=== PATIENT | male | born 1965 | race Caucasian/White ===

== ENCOUNTER 2018-08-13 12:40 | Inpatient (IN) ==
[2018-08-13] MEDS ORDERED: NS 1000 ML 1,000 ML ONE ×3 (13:12→16:11)
[2018-08-13] MEDS ORDERED: ZOFRAN INJ 4 MG VIAL ONE (13:12)
[2018-08-13] MEDS ORDERED: ZOFRAN INJ 4 MG VIAL IVP ONE (13:21)
[2018-08-13] MEDS ORDERED: NS 1000 ML 1,000 ML IV ONE ×2 (13:21→14:41)
[2018-08-13 13:50] LABS: BASOPHILS # (AUTO) 0.1 X10^3/uL (0.0-0.1); BASOPHILS % (AUTO) 0.3 % (0.2-1.0); EOSINOPHILS % (AUTO) 0.1 % (0.9-2.9); HEMATOCRIT 46.3 % (42.0-54.0); HEMOGLOBIN 15.9 g/dL (13.5-18.0); LYMPHOCYTES # (AUTO) 0.8 X10^3/uL (1.3-2.9); LYMPHOCYTES % (AUTO) 5.3 % (21.0-51.0); MEAN CORPUSCULAR HEMOGLOBIN 31.6 pg (27.0-34.0); MEAN CORPUSCULAR HGB CONC 34.3 g/dL (33.0-35.0); MEAN CORPUSCULAR VOLUME 92.2 fL (80.0-100.0); MEAN PLATELET VOLUME 7.3 fL (7.4-11.0); MONOCYTES # (AUTO) 1.8 x10^3/uL (0.3-0.8); MONOCYTES % (AUTO) 12.1 % (0.0-13.0); NEUTROPHILS # (AUTO) 12.4 x10^3/uL (2.2-4.8); NEUTROPHILS % (AUTO) 82.2 % (42.0-75.0); PLATELET COUNT 401 X10^3/uL (150.0-450.0); RED BLOOD COUNT 5.02 X10^6/uL (4.7-6.0); RED CELL DISTRIBUTION WIDTH 15.5 % (11.6-16.5); WHITE BLOOD COUNT 15.1 X10^3/uL (3.6-10.0)
--- NOTE | 2018-08-13 13:50 | DR.GENAD ---
HPI Time Seen Time Seen by Provider: 08/13/18 13:18 PCP Primary Care Physician: DR SIMPSON HPI Comment HPI Comment: WORSE TODAY. ABDOMINAL CRAMPING WELL. NOT HOLDING DOWN FLUID OR MEDICATIONS. Complaint/Symptoms Chief Complaint Doctors Comments: NAUSEA, VOMITING TIMES ONE DAY. Chief Complaint:: PT STATES THAT YESTERDAY AFTERNOON HE STARTED THROWING UP AND HASN'T BEEN ABLE TO KEEP ANYTHING DOWN. Self Treatment fo Chief Complaint: TOOK ZOFRAN AT HOME WITH NO RELIEF Nurses notes reviewed Nurses Notes Review: Yes Source History Provided: Patient Mode of Arrival Mode of Arrival: Ambulatory Timing Onset of Chief Complaint: 08/13/18 Came on: Suddenly Duration Duration: Constant Duration: Days Severity Severity: Moderate Modifying Factors Worsens:: ORAL INTAKE Improves:: NONE. Associated Signs and Symptoms Associated Signs and Symptoms: WEAK. PMH PMH Past Medical History: Yes Past Medical History: Anxiety, Arthritis, Dyslipidemia, GERD, Hypertension and PUD Past Medical History Comment: DVT,CHRONIC BACK PAIN Past Surgical History: Yes Past Surgical History Comment: IVC FILTER Family History History of Family Medical Conditions: Yes Family Medical History: Diabetes Mellitus, Cancer, [place], Coronary Artery Disease and Hypertension Social History Does patient currently use any type of tobacco product: No Have you used tobacco products in the last 12 months: No Type of Tobacco Use: None Does any household member use tobacco: No Alcohol Use: Rarely Do you use any recreational Drugs:: No Lives With: Spouse Lives Where: Home infectious screening In the last 2 months have you had wt loss of >10#?: NO Have you had fever, night sweats or hemotysis?: No Have you traveled outside the country in the last 6 months?: No Isolation: Standard PE Vital Signs Vitals: Temperature 98.8 F Pulse Rate [Left Brachial] 74 Pulse Rate 78 Respiratory Rate 16 Blood Pressure [Left Arm] 109/55 Blood Pressure [Right Arm] 129/93 Blood Pressure 154/87 O2 Sat by Pulse Oximetry 95 General Limitations: No Limitations General Appearance: Alert and In No Apparent Distress Head Head Exam: Normal Inspection and Atraumatic Eyes Eye exam: PERRL; negative Scleral Icterus and Conjunctival Injection ENT ENT Exam: Normal Exam External Ear Exam: Normal External Inspection TM/Canal Exam: Bilateral: Normal Nose Exam: Normal Nose Exam Mouth Exam: Normal Inspection Throat Exam: Normal Inspection Neck Neck Exam: Normal Inspection Chest Chest Inspection: Symmetric Chest Wall Rise Respiratory Respiratory Exam: Bilateral: Rhonchi and Lower: Rhonchi Cardiovascular Cardiovascular Exam: Regular Rate and Normal Rhythm Abdominal Exam Abdominal Exam: Normal Bowel Sounds, Soft and Tenderness Abdominal Tenderness: Diffuse and Moderate Extremities Extremities Exam: Normal Inspection Back Back Exam: Normal Inspection Neurologic Neurological Exam: Alert and Oriented X3; negative Motor Sensory Deficit Skin Skin Exam: Dry MDM Differential Diagnosis Differential Diagnosis: DEHYDRATION, BOWEL OBSTRUCTION, DIVERTICULITIS, PUD. COURSE Treatment Treatment: SEE ORDERS. ROR Labs Reviewed Laboratory Results Reviewed?: Yes Result Diagrams: 08/18/18 05:00 08/18/18 05:00 Laboratory: 08/13/18 16:18 Urine,Clean Catch Urine Culture - Final WBC 9.0 X10^3/uL (3.6-10.0) 08/18/18 05:00 RBC 4.60 X10^6/uL (4.7-6.0) L 08/18/18 05:00 Hgb 14.6 g/dL (13.5-18.0) 08/18/18 05:00 Hct 42.9 % (42.0-54.0) 08/18/18 05:00 MCV 93.1 fL (80.0-100.0) 08/18/18 05:00 MCH 31.7 pg (27.0-34.0) 08/18/18 05:00 MCHC 34.1 g/dL (33.0-35.0) 08/18/18 05:00 RDW 15.1 % (11.6-16.5) 08/18/18 05:00 Plt Count 391 X10^3/uL (150.0-450.0) 08/18/18 05:00 MPV 7.1 fL (7.4-11.0) L 08/18/18 05:00 Neut % (Auto) 76.9 % (42.0-75.0) H 08/18/18 05:00 Lymph % (Auto) 8.4 % (21.0-51.0) L 08/18/18 05:00 [place] % (Auto) 12.0 % (0.0-13.0) 08/18/18 05:00 Eos % (Auto) 1.7 % (0.9-2.9) 08/18/18 05:00 Baso % (Auto) 1.0 % (0.2-1.0) 08/18/18 05:00 Neut # (Auto) 6.9 x10^3/uL (2.2-4.8) H 08/18/18 05:00 Lymph # (Auto) 0.8 X10^3/uL (1.3-2.9) L 08/18/18 05:00 [place] # (Auto) 1.1 x10^3/uL (0.3-0.8) H 08/18/18 05:00 Eos # (Auto) 0.2 x10^3/uL (0.0-0.2) 08/18/18 05:00 Baso # (Auto) 0.1 X10^3/uL (0.0-0.1) 08/18/18 05:00 Absolute Nucleated RBC 0.0 /100WBC 08/18/18 05:00 Sodium 130 mmol/L (136-145) L 08/18/18 05:00 Corrected Sodium TNP 08/18/18 05:00 Potassium 4.7 mmol/L (3.5-5.1) 08/18/18 05:00 Chloride 96 mmol/L (98-107) L 08/18/18 05:00 Carbon Dioxide 25.2 mmol/L (21-32) 08/18/18 05:00 BUN 9 mg/dL (7-18) 08/18/18 05:00 Creatinine 1.00 mg/dL (0.70-1.30) 08/18/18 05:00 Est GFR (MDRD) Af Amer > 60 (>60) 08/18/18 05:00 Est GFR (MDRD) Non-Af > 60 (>60) 08/18/18 05:00 Glucose 97 mg/dL (65-99) 08/18/18 05:00 Calcium 9.5 mg/dL (8.5-10.1) 08/18/18 05:00 Corrected Calcium TNP 08/18/18 05:00 Magnesium 2.5 mg/dL (1.7-2.9) 08/14/18 05:24 Total Bilirubin 0.30 mg/dL (0.2-1.0) 08/18/18 05:00 AST 38 Units/L (15-37) H 08/18/18 05:00 ALT 93 Units/L (12-78) H 08/18/18 05:00 Alkaline Phosphatase 132 Units/L (46-116) H 08/18/18 05:00 Total Protein 8.0 g/dL (6.4-8.2) 08/18/18 05:00 Albumin 3.6 g/dL (3.4-5.0) 08/18/18 05:00 Globulin 4.4 g/dL (2.5-4.5) 08/18/18 05:00 Albumin/Globulin Ratio 0.8 Ratio (1.1-2.1) L 08/18/18 05:00 Triglycerides 334 mg/dL (0-150) H 08/14/18 05:24 Cholesterol 287 mg/dL (0-200) H 08/14/18 05:24 LDL Cholesterol, Calc 189 mg/dL (0-100) H 08/14/18 05:24 HDL Cholesterol 31 mg/dL (40-60) L 08/14/18 05:24 Cholesterol/HDL Ratio 9.3 (0.0-5.0) H 08/14/18 05:24 Amylase 47 Units/L (25-115) 08/13/18 13:15 Lipase 525 Units/L (73-393) H 08/13/18 13:15 Specimen Type Clean catch urine 08/13/18 16:18 Urine Color Dark yellow (YELLOW) 08/13/18 16:18 Urine Appearance Slightly hazy (CLEAR) 08/13/18 16:18 Urine pH 5.0 (5.0 - 8.0) 08/13/18 16:18 Ur Specific [place] 1.020 (1.000-1.030) 08/13/18 16:18 Urine Protein 2+ (NEGATIVE) 08/13/18 16:18 Urine Glucose (UA) Negative (NEGATIVE) 08/13/18 16:18 Urine Ketones 1+ (NEGATIVE) 08/13/18 16:18 Urine Occult Blood 1+ (NEGATIVE) 08/13/18 16:18 Urine Nitrite Negative (NEGATIVE) 08/13/18 16:18 Urine Bilirubin 1+ (NEGATIVE) 08/13/18 16:18 Urine Urobilinogen 1+ (NORMAL) 08/13/18 16:18 Ur Leukocyte Esterase 2+ (NEGATIVE) 08/13/18 16:18 Urine RBC 5-10 /HPF (NONE SEEN) 08/13/18 16:18 Urine WBC 5-10 /HPF (NONE SEEN) 08/13/18 16:18 Ur Squamous Epith Cells Few /HPF (NEGATIVE) 08/13/18 16:18 Calcium Oxalate Crystal Moderate /HPF (NEGATIVE) 08/13/18 16:18 Urine Bacteria 1+ /HPF (NEGATIVE) 08/13/18 16:18 Hyaline Casts Few /LPF (NEGATIVE) 08/13/18 16:18 Ur Culture Indicated? Yes/culture set up 08/13/18 16:18 Instructions Instructions: Hyponatremia, [id number] Sodium (Na) Test Hypertension Dehydration, Adult Forms: Patient Portal
[2018-08-13 13:53] LABS: BLOOD UREA NITROGEN 51 mg/dL (7-18); CALCIUM 9.6 mg/dL (8.5-10.1); CARBON DIOXIDE 24.4 mmol/L (21-32); CHLORIDE 86 mmol/L (98-107); COR NA(FOR HYPERGLY) 126 mmol/L (136-145); CREATININE 4.81 mg/dL (0.70-1.30); eGFR NON BLACK RACES 14 (>60)
[2018-08-13 13:59] LABS: ALANINE AMINOTRANSFERASE 42 Units/L (12-78); ALBUMIN 4.3 g/dL (3.4-5.0); ALKALINE PHOSPHATASE 133 Units/L (46-116); AMYLASE 47 Units/L (25-115); ASPARTATE AMINO TRANSFERASE 17 Units/L (15-37); LIPASE 525 Units/L (73-393)
[2018-08-13 14:04] LABS: SODIUM 125 mmol/L (136-145)
--- NOTE | 2018-08-13 15:38 | CT ---
History: Vomiting since yesterday afternoon Study: CT abdomen and pelvis without contrast. Sagittal and coronal reformations were provided. Comparison: None Findings: There is moderate fluid distention of the stomach. The gallbladder is distended. The liver and spleen and pancreas and kidneys and adrenal glands are unremarkable. There is a filter in the IVC that projects adjacent to and superior to the renal veins. There is no small bowel distention or flu id level. The colon is unremarkable. The appendix is normal. There is no adenopathy or ascites. The p rostate is normal. Impression: Moderate distention of the stomach with fluid and air but no small bowel distention. Ther efore there may be some gastric outlet obstruction. 2. Malposition of the IVC filter Reported By:
[2018-08-13] MEDS ORDERED: PEPCID 20 MG IV PREMIX* 20 MG/50 ML BAG IV ONE ×2 (16:14→16:17)
[2018-08-13] MEDS ORDERED: ZOFRAN INJ 4 MG VIAL IVP PRN (16:30)
[2018-08-13 16:37] LABS: BILIRUBIN,URINE 1+ (NEGATIVE); BLOOD/HEMOGLOBIN,URINE 1+ (NEGATIVE); GLUCOSE, URINE NEGATIVE (NEGATIVE); KETONES,URINE 1+ (NEGATIVE); LEUKOCYTE ESTERASE ,URINE 2+ (NEGATIVE); NITRITES,URINE NEGATIVE (NEGATIVE); PROTEIN,URINE 2+ (NEGATIVE); UROBILINOGEN,URINE 1+ (NORMAL)
[2018-08-13 16:49] LABS: APPEARANCE,URINE SLIGHTLY HAZY (CLEAR); COLOR,URINE DARK YELLOW (YELLOW)
[2018-08-13 16:52] LABS: BACTERIA,URINE 1+ /HPF (NEGATIVE); CALCIUM OXALATE CRYSTALS,UR MODERATE /HPF (NEGATIVE); HYALINE CASTS, URINE FEW /LPF (NEGATIVE); SQUAMOUS EPITHELIAL CELL,UR FEW /HPF (NEGATIVE)
[2018-08-13] MEDS ORDERED: NS 1000 ML 1,000 ML IV SCH (17:00)
[2018-08-13] MEDS: NS 1000 ML 1,000 ML IV SCH ×2 (17:00→22:20)
[2018-08-13 17:23] VITALS: BMI 33.0
[2018-08-13] MEDS: NORCO 5/325 MG TAB PO PRN (19:07)
[2018-08-13] MEDS: MORPHINE SULFATE INJ 2 MG INJ IVP PRN (20:38)
[2018-08-13] MEDS ORDERED: PEPCID 20 MG IV PREMIX* 20 MG/50 ML BAG IV SCH (23:00)
[2018-08-14] MEDS: MORPHINE SULFATE INJ 2 MG INJ IVP PRN ×3 (01:05→09:44)
[2018-08-14] MEDS: NS 1000 ML 1,000 ML IV SCH ×4 (02:44→20:39)
[2018-08-14 06:02] LABS: ALANINE AMINOTRANSFERASE 31 Units/L (12-78); ALBUMIN 3.2 g/dL (3.4-5.0); ALKALINE PHOSPHATASE 101 Units/L (46-116); ASPARTATE AMINO TRANSFERASE 17 Units/L (15-37); BASOPHILS # (AUTO) 0.1 X10^3/uL (0.0-0.1); BASOPHILS % (AUTO) 0.6 % (0.2-1.0); BLOOD UREA NITROGEN 46 mg/dL (7-18); CALCIUM 8.1 mg/dL (8.5-10.1); CARBON DIOXIDE 26.3 mmol/L (21-32); CHLORIDE 96 mmol/L (98-107); CHOL/HDL RATIO 9.3 (0.0-5.0); CHOLESTEROL 287 mg/dL (0-200); COR CA(FOR HYPOALB) 8.7 mg/dL (8.5-10.1); EOSINOPHILS % (AUTO) 0.1 % (0.9-2.9); HDL CHOLESTEROL 31 mg/dL (40-60); HEMATOCRIT 39.8 % (42.0-54.0); HEMOGLOBIN 13.4 g/dL (13.5-18.0); LYMPHOCYTES # (AUTO) 0.9 X10^3/uL (1.3-2.9); LYMPHOCYTES % (AUTO) 7.8 % (21.0-51.0); MAGNESIUM 2.5 mg/dL (1.7-2.9); MEAN CORPUSCULAR HEMOGLOBIN 31.6 pg (27.0-34.0); MEAN CORPUSCULAR HGB CONC 33.6 g/dL (33.0-35.0); MEAN CORPUSCULAR VOLUME 93.9 fL (80.0-100.0); MEAN PLATELET VOLUME 7.1 fL (7.4-11.0); MONOCYTES # (AUTO) 1.8 x10^3/uL (0.3-0.8); NEUTROPHILS # (AUTO) 9.1 x10^3/uL (2.2-4.8); NEUTROPHILS % (AUTO) 76.5 % (42.0-75.0); PLATELET COUNT 249 X10^3/uL (150.0-450.0); RED BLOOD COUNT 4.24 X10^6/uL (4.7-6.0); RED CELL DISTRIBUTION WIDTH 15.7 % (11.6-16.5); SODIUM 129 mmol/L (136-145); TRIGLYCERIDES 334 mg/dL (0-150); WHITE BLOOD COUNT 11.9 X10^3/uL (3.6-10.0); eGFR NON BLACK RACES 26 (>60)
[2018-08-14] MEDS: NORCO 5/325 MG TAB PO PRN (06:44)
[2018-08-14] MEDS: ROCEPHIN VIAL 1 GRAM IVP SCH (09:44)
[2018-08-14] MEDS ORDERED: SUMATRIPTAN SUCCINATE PO PRN (09:53)
[2018-08-14] MEDS ORDERED: ALPRAZOLAM 0.5 MG PO PRN (09:53)
[2018-08-14] MEDS ORDERED: ACETAMINOPHEN CODEINE PO PRN (09:53)
[2018-08-14] MEDS ORDERED: PATIENT'S HOME MEDICATION (Lisinopril 20 MG) PO SCH (10:00)
[2018-08-14] MEDS ORDERED: PATIENT'S HOME MEDICATION (Oxycodone [Oxycodone] 30 MG) PO SCH (10:00)
[2018-08-14] MEDS ORDERED: CARISOPRODOL PO SCH (10:00)
[2018-08-14] MEDS ORDERED: LINZESS PO ONE (11:14)
[2018-08-14] MEDS ORDERED: REGLAN TAB 10 MG PO ONE (11:16)
[2018-08-14] MEDS ORDERED: PROTONIX INJ 40 MG VIAL ONE (11:16)
[2018-08-14] MEDS ORDERED: ZESTRIL TAB 20 MG ONE ×2 (11:17→20:01)
[2018-08-14] MEDS: LINZESS PO SCH (11:19)
[2018-08-14] MEDS: CIPRO IV 200 MG PREMIX* 200 MG/100 ML BAG IV SCH ×2 (11:20→20:20)
[2018-08-14] MEDS: REGLAN TAB 10 MG PO SCH ×4 (11:20→20:18)
[2018-08-14] MEDS: PROTONIX INJ 40 MG VIAL IVP SCH ×2 (11:20→20:18)
[2018-08-14] MEDS: NEBIVOLOL PO SCH ×2 (11:29→20:21)
[2018-08-14] MEDS: ROXICODONE TAB 15 MG PO PRN ×3 (11:45→20:18)
[2018-08-14] MEDS: SOMA TAB 350 MG PO PRN ×3 (11:46→20:18)
[2018-08-14] MEDS: TYLENOL #3 TAB (W/CODEINE) PO PRN ×2 (18:23→23:25)
[2018-08-14] MEDS: ZESTRIL TAB 20 MG PO SCH (20:18)
[2018-08-14] MEDS: PEPCID 20 MG IV PREMIX* 20 MG/50 ML BAG IV SCH (20:20)
[2018-08-14] MEDS: XARELTO PO SCH (20:39)
[2018-08-15] MEDS: SOMA TAB 350 MG PO PRN ×6 (00:15→22:12)
[2018-08-15] MEDS: ROXICODONE TAB 15 MG PO PRN ×7 (00:16→22:13)
[2018-08-15 05:38] LABS: BASOPHILS % (AUTO) 0.5 % (0.2-1.0); EOSINOPHILS # (AUTO) 0.1 x10^3/uL (0.0-0.2); EOSINOPHILS % (AUTO) 1.4 % (0.9-2.9); HEMATOCRIT 36.1 % (42.0-54.0); HEMOGLOBIN 12.3 g/dL (13.5-18.0); LYMPHOCYTES % (AUTO) 13.8 % (21.0-51.0); MEAN CORPUSCULAR HEMOGLOBIN 31.8 pg (27.0-34.0); MEAN CORPUSCULAR HGB CONC 34.1 g/dL (33.0-35.0); MEAN CORPUSCULAR VOLUME 93.4 fL (80.0-100.0); MONOCYTES # (AUTO) 1.1 x10^3/uL (0.3-0.8); MONOCYTES % (AUTO) 14.1 % (0.0-13.0); NEUTROPHILS # (AUTO) 5.3 x10^3/uL (2.2-4.8); NEUTROPHILS % (AUTO) 70.2 % (42.0-75.0); PLATELET COUNT 241 X10^3/uL (150.0-450.0); RED BLOOD COUNT 3.87 X10^6/uL (4.7-6.0); RED CELL DISTRIBUTION WIDTH 15.2 % (11.6-16.5); WHITE BLOOD COUNT 7.5 X10^3/uL (3.6-10.0)
[2018-08-15 05:52] LABS: ALANINE AMINOTRANSFERASE 58 Units/L (12-78); ALBUMIN 3.2 g/dL (3.4-5.0); ALKALINE PHOSPHATASE 105 Units/L (46-116); ASPARTATE AMINO TRANSFERASE 42 Units/L (15-37); BLOOD UREA NITROGEN 23 mg/dL (7-18); CALCIUM 8.6 mg/dL (8.5-10.1); CARBON DIOXIDE 24.2 mmol/L (21-32); CHLORIDE 100 mmol/L (98-107); COR CA(FOR HYPOALB) 9.2 mg/dL (8.5-10.1); CREATININE 1.14 mg/dL (0.70-1.30); SODIUM 131 mmol/L (136-145); TOTAL PROTEIN 6.9 g/dL (6.4-8.2); eGFR NON BLACK RACES > 60 (>60)
--- NOTE | 2018-08-15 06:39 | RAD ---
Examination: KUB History: Abdominal pain, vomiting Comparison reference abdomen CT, 08/13/2018 Findings: There is slight gaseous dilatation of scattered segments of small bowel and colon. The appe arance does not suggest bowel obstruction. No visceral enlargement or pathologic fluid collection or calcification noted. IVC filter is noted projected to the right of T12 or L1. Impression: No significant intestinal abnormality noted. Suspect malposition of IVC filter as suggest ed on recent CT study. Reported By:
[2018-08-15] MEDS ORDERED: ZESTRIL TAB 20 MG ONE ×2 (08:17→19:41)
[2018-08-15] MEDS: CIPRO IV 200 MG PREMIX* 200 MG/100 ML BAG IV SCH ×2 (08:22→20:11)
[2018-08-15] MEDS: PROTONIX INJ 40 MG VIAL IVP SCH ×2 (08:23→20:12)
[2018-08-15] MEDS: ZESTRIL TAB 20 MG PO SCH ×2 (08:23→20:12)
[2018-08-15] MEDS: REGLAN TAB 10 MG PO SCH ×4 (08:23→20:12)
[2018-08-15] MEDS: TYLENOL #3 TAB (W/CODEINE) PO PRN ×2 (08:23→17:14)
[2018-08-15] MEDS: LINZESS PO SCH (08:23)
[2018-08-15] MEDS: NS 1000 ML 1,000 ML IV SCH ×3 (08:24→20:11)
[2018-08-15] MEDS: ROCEPHIN VIAL 1 GRAM IVP SCH (08:24)
--- NOTE | 2018-08-15 12:26 | DR.H&P ---
H&P - History & Physical for Day of: H&P Date: 08/13/18 - Chief Complaint Chief Complaint: NAUSEA, VOMITING, ABDOMINAL PAIN - History of Present Illness History of Present Illness: IS A 53 YEAR OLD PATIENT OF OURS WHO PRESENTED TO THE EMERGENCY ROOM WITH COMPLAINTS OF SEVEVER NAUSEA AND VOMITING AND ABDOMINAL PAIN. HE REPORS THAT HE HAS BEEN UNABLE TO KEEP ANYTHING DOWN FOR THE PAST DAY. HE REPORTS TAKING ZOFRAN AT HOME WITH NO RELIEF. ON ARRIVAL, VITAS WERE 96.2-11-39-90FA-98/54. LABS WERE OBTAINED. ABNORMAL LAB VALUES INCLUDE THE FOLLOWING: WBC 15.1, SOIDUM 125, BUN 51, CREATININE 4.81, GLUCOSE 127, ALK PHOS 133, TOTAL PROTEIN 9.0, GLOBULIN 4.7, LIPASE 525. URINALYSIS REVEALED WBC 5-10, RBC 5-10, BACTERIA 1+, LEUKOCYTES 1+. AN ABDOMEN/PELVIS CT WAS OBTIANED AND REVEALED: Moderate distention of the stomach with fluid and air but no small bowel distention. Therefore there may be some gastric outlet obstruction. Malposition of the IVC filter. HE WAS ADMITTED TO THE HOSPITAL FOR FURTHER EVALUATION AND TREATMENT OF DEHYDRATION, HYPONATREMIA, ACUTE RENAL FAILURE, ABDOMINAL PAIN, AND A URINARY TRACT INFECTION. HE WAS STARTED ON NORMAL SALINE AT 125ML/HR, ROCEPHIN 1GM IV DAILY, MORPHINE 2MG IV Q4H PRN PAIN, AND ZOFRAN 4MG IV Q6H PRN NAUSEA. WE PLAN TO FOLLOW UP WITH AM LABS AND CONTINUE TO MONITOR PATIENT. - Past Medical History Past Medical History: Hypertension, Dyslipidemia, Anxiety, PUD, GERD, Arthritis Additional Medical History: Pulmonary Embolus, Deep Vein Thrombosis, Vision Deficit, Hearing Deficit, Cardiac Arrhythmia, Seasonal Allergies, Slow Digestion, Muscle Weakness, Fibromyalgia, Back Pain, Degenerative Disc Disease - Past Surgical History Surgical History: Other - Family History Family Medical History: Cancer - Social History Does patient currently use any type of tobacco product: No Have you used tobacco products in the last 12 months: No Type of Tobacco Use: None Does any household member use tobacco: No Alcohol Use: None Drug Use: None - Medications Home Medications: No Known Drug Allergies Allergy (Verified 05/08/17 17:27) CONTINUE taking the following medications acetaminophen-codeine 1 tab PO Q4-6H PRN 08/13/18 [History] ciprofloxacin HCl [Cipro] 1 tab PO BID 08/13/18 [History] furosemide [Lasix] 20 mg PO BID PRN 08/13/18 [History] linaclotide [Linzess] 145 mcg PO DAILY 08/13/18 [History] methylprednisolone 1 tab PO DIRECTED 08/13/18 [History] oxycodone 30 mg PO .5XDAILY 08/13/18 [History] rivaroxaban [Xarelto] 10 mg PO HS 08/14/18 [History] - Review of Systems Constitutional: See HPI, Weakness Eyes: No Symptoms Reported ENT: No Symptoms Reported Respiratory: No Symptoms Reported Cardiovascular: No Symptoms Reported Gastrointestinal: Nausea, Vomiting, Abdominal Pain Genitourinary: No Symptoms Reported Musculoskeletal: No Symptoms Reported Skin: No Symptoms Reported Neurological: Weakness - Physical Exam Vital Signs: Temperature 98.0 F Pulse Rate [Left Brachial] 74 Pulse Rate 70 Respiratory Rate 11 Blood Pressure [Left Arm] 109/55 Blood Pressure [Right Arm] 129/93 Blood Pressure 150/77 O2 Sat by Pulse Oximetry 93 Oriented: Normal Eyes: Normal Ear: Normal Nose: Normal Throat: Normal Respiratory: Diminished Throughout Cardiovascular: Normal. negative: S3, S4, Murmur : Normal Auscultation: Bowel Sounds: Increased Palpation: Normal Tenderness: Diffuse, Moderate. negative: Rebound, Guarding, Rigidity Skin: Normal Musculoskeletal: Normal Psychiatric: Normal Mood Description: Calm Affect: Normal Speech Pattern: Clear - Assessment/Plan (1) Dehydration Status: Acute Plan: NORMAL SALINE AT 125ML/HR (2) Acute renal failure (ARF) Qualifiers: Acute renal failure type: unspecified Qualified Code(s): N17.9 - Acute kidney failure, unspecified Status: Acute Plan: NORMAL SALINE AT 125ML/HR (3) Hyponatremia Status: Acute Plan: NORMAL SALINE AT 125ML/HR (4) Urinary tract infection Qualifiers: Urinary tract infection type: site unspecified Hematuria presence: with hematuria Qualified Code(s): N39.0 - Urinary tract infection, site not specified; R31.9 - Hematuria, unspecified Status: Acute Plan: ROCEPHIN 1GM IV DAILY, CONTINUE TO MONITOR (5) Generalized weakness Status: Acute (6) Abdominal pain Qualifiers: Abdominal location: generalized Qualified Code(s): R10.84 - Generalized abdominal pain Status: Acute Plan: MORPHINE 2MG IV Q4H PRN PAIN - Allergies Allergies/Adverse Reactions: Allergies Allergy/AdvReac Type Severity Reaction Status Date / Time No Known Drug Allergies Allergy Verified 05/08/17 17:27
[2018-08-15] MEDS: NORCO 5/325 MG TAB PO PRN (12:33)
[2018-08-15] MEDS: NEBIVOLOL PO SCH (20:12)
[2018-08-15] MEDS: XARELTO PO SCH (20:12)
[2018-08-15] MEDS: MORPHINE SULFATE INJ 2 MG INJ IVP PRN (20:21)
[2018-08-15] MEDS: PEPCID 20 MG IV PREMIX* 20 MG/50 ML BAG IV SCH (20:21)
[2018-08-16] MEDS: XANAX PO PRN (01:19)
[2018-08-16] MEDS: MORPHINE SULFATE INJ 2 MG INJ IVP PRN (01:20)
[2018-08-16] MEDS: ROXICODONE TAB 15 MG PO PRN ×5 (02:47→21:13)
[2018-08-16] MEDS: NS 1000 ML 1,000 ML IV SCH ×2 (02:48→09:54)
[2018-08-16] MEDS: TYLENOL #3 TAB (W/CODEINE) PO PRN (04:50)
[2018-08-16] MEDS: SOMA TAB 350 MG PO PRN ×4 (04:51→21:13)
[2018-08-16 05:34] LABS: BASOPHILS % (AUTO) 0.3 % (0.2-1.0); EOSINOPHILS # (AUTO) 0.1 x10^3/uL (0.0-0.2); HEMATOCRIT 38.8 % (42.0-54.0); HEMOGLOBIN 13.2 g/dL (13.5-18.0); LYMPHOCYTES # (AUTO) 0.7 X10^3/uL (1.3-2.9); LYMPHOCYTES % (AUTO) 8.1 % (21.0-51.0); MEAN CORPUSCULAR HEMOGLOBIN 31.8 pg (27.0-34.0); MEAN CORPUSCULAR HGB CONC 34.1 g/dL (33.0-35.0); MEAN CORPUSCULAR VOLUME 93.2 fL (80.0-100.0); MONOCYTES % (AUTO) 10.9 % (0.0-13.0); NEUTROPHILS # (AUTO) 7.2 x10^3/uL (2.2-4.8); NEUTROPHILS % (AUTO) 79.7 % (42.0-75.0); PLATELET COUNT 297 X10^3/uL (150.0-450.0); RED BLOOD COUNT 4.16 X10^6/uL (4.7-6.0); WHITE BLOOD COUNT 9.1 X10^3/uL (3.6-10.0)
[2018-08-16 05:45] LABS: ALANINE AMINOTRANSFERASE 65 Units/L (12-78); ALBUMIN 3.3 g/dL (3.4-5.0); ALKALINE PHOSPHATASE 114 Units/L (46-116); ASPARTATE AMINO TRANSFERASE 41 Units/L (15-37); BLOOD UREA NITROGEN 12 mg/dL (7-18); CALCIUM 8.8 mg/dL (8.5-10.1); CARBON DIOXIDE 24.5 mmol/L (21-32); CHLORIDE 96 mmol/L (98-107); COR CA(FOR HYPOALB) 9.4 mg/dL (8.5-10.1); CREATININE 0.92 mg/dL (0.70-1.30); SODIUM 129 mmol/L (136-145); TOTAL PROTEIN 7.4 g/dL (6.4-8.2); eGFR NON BLACK RACES > 60 (>60)
[2018-08-16] MEDS ORDERED: ZESTRIL TAB 20 MG ONE ×2 (08:13→20:59)
[2018-08-16] MEDS: CIPRO IV 200 MG PREMIX* 200 MG/100 ML BAG IV SCH (08:17)
[2018-08-16] MEDS: PROTONIX INJ 40 MG VIAL IVP SCH (08:17)
[2018-08-16] MEDS: LINZESS PO SCH (08:18)
[2018-08-16] MEDS: REGLAN TAB 10 MG PO SCH ×4 (08:18→21:13)
[2018-08-16] MEDS: ZESTRIL TAB 20 MG PO SCH ×2 (08:19→21:14)
[2018-08-16] MEDS: ROCEPHIN VIAL 1 GRAM IVP SCH (08:19)
[2018-08-16] MEDS: NORCO 5/325 MG TAB PO PRN (11:01)
[2018-08-16] MEDS ORDERED: PHARMACY CONSULT - DOSE _____ XX SCH (14:00)
[2018-08-16] MEDS ORDERED: SODIUM CHL HYPERTONIC ** 3% ** 500 ML IV NR (14:00)
[2018-08-16] MEDS: PROTONIX TAB 40 MG PO SCH (14:03)
[2018-08-16] MEDS: NORVASC TAB 5 MG PO SCH (14:04)
[2018-08-16] MEDS: PEPCID 20 MG IV PREMIX* 20 MG/50 ML BAG IV SCH (21:13)
[2018-08-16] MEDS: XARELTO PO SCH (21:14)
[2018-08-16] MEDS: NEBIVOLOL PO SCH (21:18)
[2018-08-17] MEDS: TYLENOL #3 TAB (W/CODEINE) PO PRN ×3 (01:36→18:36)
[2018-08-17] MEDS: ROXICODONE TAB 15 MG PO PRN ×5 (04:35→20:17)
[2018-08-17] MEDS: SOMA TAB 350 MG PO PRN ×5 (04:35→20:18)
[2018-08-17 05:18] LABS: BASOPHILS # (AUTO) 0.1 X10^3/uL (0.0-0.1); BASOPHILS % (AUTO) 0.8 % (0.2-1.0); EOSINOPHILS # (AUTO) 0.2 x10^3/uL (0.0-0.2); EOSINOPHILS % (AUTO) 1.9 % (0.9-2.9); HEMOGLOBIN 13.8 g/dL (13.5-18.0); LYMPHOCYTES # (AUTO) 1.1 X10^3/uL (1.3-2.9); LYMPHOCYTES % (AUTO) 10.9 % (21.0-51.0); MEAN CORPUSCULAR HEMOGLOBIN 31.2 pg (27.0-34.0); MEAN CORPUSCULAR HGB CONC 33.6 g/dL (33.0-35.0); MEAN CORPUSCULAR VOLUME 92.9 fL (80.0-100.0); MEAN PLATELET VOLUME 7.1 fL (7.4-11.0); MONOCYTES # (AUTO) 1.2 x10^3/uL (0.3-0.8); MONOCYTES % (AUTO) 12.4 % (0.0-13.0); NEUTROPHILS # (AUTO) 7.3 x10^3/uL (2.2-4.8); PLATELET COUNT 350 X10^3/uL (150.0-450.0); RED BLOOD COUNT 4.42 X10^6/uL (4.7-6.0); RED CELL DISTRIBUTION WIDTH 15.2 % (11.6-16.5); WHITE BLOOD COUNT 9.8 X10^3/uL (3.6-10.0)
[2018-08-17 05:32] LABS: ALANINE AMINOTRANSFERASE 82 Units/L (12-78); ALBUMIN 3.5 g/dL (3.4-5.0); ALKALINE PHOSPHATASE 126 Units/L (46-116); ASPARTATE AMINO TRANSFERASE 42 Units/L (15-37); BLOOD UREA NITROGEN 10 mg/dL (7-18); CALCIUM 9.3 mg/dL (8.5-10.1); CHLORIDE 97 mmol/L (98-107); CREATININE 1.07 mg/dL (0.70-1.30); SODIUM 130 mmol/L (136-145); TOTAL PROTEIN 7.8 g/dL (6.4-8.2); eGFR NON BLACK RACES > 60 (>60)
[2018-08-17] MEDS: NORCO 10/325 TAB PO PRN (06:17)
[2018-08-17] MEDS ORDERED: ZESTRIL TAB 20 MG ONE ×2 (07:59→20:05)
[2018-08-17] MEDS: PROTONIX TAB 40 MG PO SCH (08:09)
[2018-08-17] MEDS: ROCEPHIN VIAL 1 GRAM IVP SCH (08:09)
[2018-08-17] MEDS: REGLAN TAB 10 MG PO SCH ×4 (08:09→20:14)
[2018-08-17] MEDS: LINZESS PO SCH (08:09)
[2018-08-17] MEDS: NORVASC TAB 5 MG PO SCH (08:09)
[2018-08-17] MEDS: ZESTRIL TAB 20 MG PO SCH ×2 (08:09→20:15)
[2018-08-17] MEDS: IMITREX TAB PO PRN (08:09)
[2018-08-17] MEDS: NS 1000 ML 1,000 ML IV SCH (09:52)
[2018-08-17] MEDS: MIRALAX POWDER (1 DOSE 17 G) PO SCH (09:52)
--- NOTE | 2018-08-17 10:07 | RAD ---
Exam: Portable chest History: 53-year-old male with shortness of breath Comparison: Previous chest radiograph from 05/10/2017 Findings: Heart size is upper limits of normal. No significant vascular congestion however. Left basilar atelec tasis is present. Otherwise lungs are clear. No significant effusion on either side. Impression: Mild atelectasis at left base. Otherwise negative exam Reported By:
[2018-08-17] MEDS ORDERED: NORVASC TAB 10 MG PO SCH (14:00)
[2018-08-17] MEDS ORDERED: NORVASC TAB 5 MG ONE (14:18)
[2018-08-17] MEDS ORDERED: NORVASC TAB 5 MG PO ONE (14:20)
--- NOTE | 2018-08-17 18:15 | PCM.PROG ---
Progress Note - Progress Note for Day of Date of Exam: 08/17/18 - Subjective Subjective: MR MENDOZA IS 53 WM ADMITTED WITH SEVERE DEHYDRATION, ACUTE RENAL FAILURE, ABDOMINAL PAIN WITH SBO. PT HAS HAD GRADUAL IMPROVEMENT IN RENAL FUNCTION, BUN 10 CREAT 1.07 THIS AM, CONTINUES WITH HYPONATREMIA 130. PT WBC 9.8,HBG 13.8. PT CONTINUES TO CO NAUSEA WITH ABDOMINAL BLOATING, DENIES BM SINCE ADMISSION. PT STARTED ON MIRALAX, DC HYPERTONIC IV SOLUTION, REPEAT AM KUB, REPEAT AM LABS. HYPERTENSIVE, INCREASED NORVASC TO 10MG PO DAILY, WILL CONTINUE TO MONITOR - Past Medical Family Social History Past Med/Fam/Surg Hx: No changes since H&P Allergies: Allergies No Known Drug Allergies Allergy (Verified 05/08/17 17:27) - Review of Systems ROS: No change since H&P - Vital Signs and I&O's Vital Signs: Temperature 98.6 F Pulse Rate [Left Brachial] 74 Pulse Rate 64 Respiratory Rate 12 Blood Pressure [Left Arm] 109/55 Blood Pressure [Right Arm] 129/93 Blood Pressure 170/77 O2 Sat by Pulse Oximetry 98 Intake and Output: Intake & Output 08/15/18 08/16/18 08/17/18 08/18/18 11:59 11:59 11:59 11:59 Intake Total 6195 / 6195 5070 / 5070 4089 / 4089 1979 / 1979 Output Total 5200 / 5200 6800 / 6800 5050 / 5050 1050 / 1050 Balance 995 / 995 -1730 / -1730 -961 / -961 930 / 930 - Physical Exam Oriented: Normal Eyes: Normal Ear: Normal Nose: Normal Throat: Normal Respiratory: Diminished Cardiovascular: Normal. negative: S3, S4, Murmur : Normal Auscultation: Bowel Sounds: Increased Tenderness: Diffuse, Mild. negative: Rebound, Guarding, Rigidity Skin: Normal Musculoskeletal: Normal Psychiatric: Normal Mood Description: Calm Affect: Normal Speech Pattern: Clear, Appropriate - Laboratory and Diagnostics Result Diagrams: 08/17/18 04:45 08/17/18 04:45 Labs: 08/13/18 16:18 Urine,Clean Catch Urine Culture - Final Laboratory WBC 9.8 X10^3/uL (3.6-10.0) 08/17/18 04:45 RBC 4.42 X10^6/uL (4.7-6.0) L 08/17/18 04:45 Hgb 13.8 g/dL (13.5-18.0) 08/17/18 04:45 Hct 41.0 % (42.0-54.0) L 08/17/18 04:45 MCV 92.9 fL (80.0-100.0) 08/17/18 04:45 MCH 31.2 pg (27.0-34.0) 08/17/18 04:45 MCHC 33.6 g/dL (33.0-35.0) 08/17/18 04:45 RDW 15.2 % (11.6-16.5) 08/17/18 04:45 Plt Count 350 X10^3/uL (150.0-450.0) 08/17/18 04:45 MPV 7.1 fL (7.4-11.0) L 08/17/18 04:45 Neut % (Auto) 74.0 % (42.0-75.0) 08/17/18 04:45 Lymph % (Auto) 10.9 % (21.0-51.0) L 08/17/18 04:45 [place] % (Auto) 12.4 % (0.0-13.0) 08/17/18 04:45 Eos % (Auto) 1.9 % (0.9-2.9) 08/17/18 04:45 Baso % (Auto) 0.8 % (0.2-1.0) 08/17/18 04:45 Neut # (Auto) 7.3 x10^3/uL (2.2-4.8) H 08/17/18 04:45 Lymph # (Auto) 1.1 X10^3/uL (1.3-2.9) L 08/17/18 04:45 [place] # (Auto) 1.2 x10^3/uL (0.3-0.8) H 08/17/18 04:45 Eos # (Auto) 0.2 x10^3/uL (0.0-0.2) 08/17/18 04:45 Baso # (Auto) 0.1 X10^3/uL (0.0-0.1) 08/17/18 04:45 Absolute Nucleated RBC 0.0 /100WBC 08/17/18 04:45 Sodium 130 mmol/L (136-145) L 08/17/18 04:45 Corrected Sodium TNP 08/17/18 04:45 Potassium 4.5 mmol/L (3.5-5.1) 08/17/18 04:45 Chloride 97 mmol/L (98-107) L 08/17/18 04:45 Carbon Dioxide 25.0 mmol/L (21-32) 08/17/18 04:45 BUN 10 mg/dL (7-18) 08/17/18 04:45 Creatinine 1.07 mg/dL (0.70-1.30) 08/17/18 04:45 Est GFR (MDRD) Af Amer > 60 (>60) 08/17/18 04:45 Est GFR (MDRD) Non-Af > 60 (>60) 08/17/18 04:45 Glucose 93 mg/dL (65-99) 08/17/18 04:45 Calcium 9.3 mg/dL (8.5-10.1) 08/17/18 04:45 Corrected Calcium TNP 08/17/18 04:45 Magnesium 2.5 mg/dL (1.7-2.9) 08/14/18 05:24 Total Bilirubin 0.30 mg/dL (0.2-1.0) 08/17/18 04:45 AST 42 Units/L (15-37) H 08/17/18 04:45 ALT 82 Units/L (12-78) H 08/17/18 04:45 Alkaline Phosphatase 126 Units/L (46-116) H 08/17/18 04:45 Total Protein 7.8 g/dL (6.4-8.2) 08/17/18 04:45 Albumin 3.5 g/dL (3.4-5.0) 08/17/18 04:45 Globulin 4.3 g/dL (2.5-4.5) 08/17/18 04:45 Albumin/Globulin Ratio 0.8 Ratio (1.1-2.1) L 08/17/18 04:45 Triglycerides 334 mg/dL (0-150) H 08/14/18 05:24 Cholesterol 287 mg/dL (0-200) H 08/14/18 05:24 LDL Cholesterol, Calc 189 mg/dL (0-100) H 08/14/18 05:24 HDL Cholesterol 31 mg/dL (40-60) L 08/14/18 05:24 Cholesterol/HDL Ratio 9.3 (0.0-5.0) H 08/14/18 05:24 Amylase 47 Units/L (25-115) 08/13/18 13:15 Lipase 525 Units/L (73-393) H 08/13/18 13:15 Specimen Type Clean catch urine 08/13/18 16:18 Urine Color Dark yellow (YELLOW) 08/13/18 16:18 Urine Appearance Slightly hazy (CLEAR) 08/13/18 16:18 Urine pH 5.0 (5.0 - 8.0) 08/13/18 16:18 Ur Specific [place] 1.020 (1.000-1.030) 08/13/18 16:18 Urine Protein 2+ (NEGATIVE) 08/13/18 16:18 Urine Glucose (UA) Negative (NEGATIVE) 08/13/18 16:18 Urine Ketones 1+ (NEGATIVE) 08/13/18 16:18 Urine Occult Blood 1+ (NEGATIVE) 08/13/18 16:18 Urine Nitrite Negative (NEGATIVE) 08/13/18 16:18 Urine Bilirubin 1+ (NEGATIVE) 08/13/18 16:18 Urine Urobilinogen 1+ (NORMAL) 08/13/18 16:18 Ur Leukocyte Esterase 2+ (NEGATIVE) 08/13/18 16:18 Urine RBC 5-10 /HPF (NONE SEEN) 08/13/18 16:18 Urine WBC 5-10 /HPF (NONE SEEN) 08/13/18 16:18 Ur Squamous Epith Cells Few /HPF (NEGATIVE) 08/13/18 16:18 Calcium Oxalate Crystal Moderate /HPF (NEGATIVE) 08/13/18 16:18 Urine Bacteria 1+ /HPF (NEGATIVE) 08/13/18 16:18 Hyaline Casts Few /LPF (NEGATIVE) 08/13/18 16:18 Ur Culture Indicated? Yes/culture set up 08/13/18 16:18 - Plan (1) Hyponatremia Status: Acute Plan: NORMAL SALINE AT 30CC/HR (2) SBO (small bowel obstruction) Status: Acute Plan: KUB NEGATIVE, MIRALAX. HYDRATE, REPEAT AM KUB (3) GERD (gastroesophageal reflux disease) Status: Chronic Qualifiers: Esophagitis presence: esophagitis presence not specified Qualified Code(s): K21.9 - Gastro-esophageal reflux disease without esophagitis (4) Hypertension Status: Chronic Qualifiers: Hypertension type: essential hypertension (5) Acute renal failure (ARF) Status: Acute Qualifiers: Acute renal failure type: unspecified Qualified Code(s): N17.9 - Acute kidney failure, unspecified Plan: NORMAL SALINE AT 30ML/HR
[2018-08-17] MEDS: NEBIVOLOL PO SCH (20:13)
[2018-08-17] MEDS: PEPCID 20 MG IV PREMIX* 20 MG/50 ML BAG IV SCH (20:14)
[2018-08-17] MEDS: XARELTO PO SCH (20:15)
[2018-08-17] MEDS: XANAX PO PRN (20:18)
[2018-08-18] MEDS: NS 1000 ML 1,000 ML IV SCH (00:16)
[2018-08-18] MEDS: ROXICODONE TAB 15 MG PO PRN ×4 (00:59→12:58)
[2018-08-18] MEDS: SOMA TAB 350 MG PO PRN ×4 (00:59→12:58)
[2018-08-18] MEDS: NORCO 10/325 TAB PO PRN ×2 (03:53→10:59)
[2018-08-18 05:25] LABS: BASOPHILS # (AUTO) 0.1 X10^3/uL (0.0-0.1); EOSINOPHILS # (AUTO) 0.2 x10^3/uL (0.0-0.2); EOSINOPHILS % (AUTO) 1.7 % (0.9-2.9); HEMATOCRIT 42.9 % (42.0-54.0); HEMOGLOBIN 14.6 g/dL (13.5-18.0); LYMPHOCYTES # (AUTO) 0.8 X10^3/uL (1.3-2.9); LYMPHOCYTES % (AUTO) 8.4 % (21.0-51.0); MEAN CORPUSCULAR HEMOGLOBIN 31.7 pg (27.0-34.0); MEAN CORPUSCULAR HGB CONC 34.1 g/dL (33.0-35.0); MEAN CORPUSCULAR VOLUME 93.1 fL (80.0-100.0); MEAN PLATELET VOLUME 7.1 fL (7.4-11.0); MONOCYTES # (AUTO) 1.1 x10^3/uL (0.3-0.8); NEUTROPHILS # (AUTO) 6.9 x10^3/uL (2.2-4.8); NEUTROPHILS % (AUTO) 76.9 % (42.0-75.0); PLATELET COUNT 391 X10^3/uL (150.0-450.0); RED CELL DISTRIBUTION WIDTH 15.1 % (11.6-16.5)
[2018-08-18 05:44] LABS: ALANINE AMINOTRANSFERASE 93 Units/L (12-78); ALBUMIN 3.6 g/dL (3.4-5.0); ALKALINE PHOSPHATASE 132 Units/L (46-116); ASPARTATE AMINO TRANSFERASE 38 Units/L (15-37); BLOOD UREA NITROGEN 9 mg/dL (7-18); CALCIUM 9.5 mg/dL (8.5-10.1); CARBON DIOXIDE 25.2 mmol/L (21-32); CHLORIDE 96 mmol/L (98-107); SODIUM 130 mmol/L (136-145); eGFR NON BLACK RACES > 60 (>60)
[2018-08-18] MEDS: IMITREX TAB PO PRN (05:56)
--- NOTE | 2018-08-18 07:04 | RAD ---
HISTORY: Abdominal pain Study: KUB Comparison: 08/15/2018 Findings: The abdominal gas pattern is nonspecific and nonobstructive. No abnormal masses or abnormal calcifica tions are identified. There is a CAVAL FILTER PRESENT. The regional skeleton is intact. IMPRESSION: Unremarkable KUB Reported By:
[2018-08-18] MEDS ORDERED: ZESTRIL TAB 20 MG ONE (07:47)
[2018-08-18] MEDS: MIRALAX POWDER (1 DOSE 17 G) PO SCH (08:00)
[2018-08-18] MEDS: PROTONIX TAB 40 MG PO SCH (08:00)
[2018-08-18] MEDS: LINZESS PO SCH (08:00)
[2018-08-18] MEDS: ROCEPHIN VIAL 1 GRAM IVP SCH (08:01)
[2018-08-18] MEDS: ZESTRIL TAB 20 MG PO SCH (08:01)
[2018-08-18] MEDS: TYLENOL #3 TAB (W/CODEINE) PO PRN (08:01)
[2018-08-18] MEDS: REGLAN TAB 10 MG PO SCH ×2 (08:01→12:58)
[2018-08-18 08:22] VITALS: BP 154/87
[2018-08-18] MEDS ORDERED: NORVASC TAB 10 MG PO SCH (09:00)
--- NOTE | 2018-09-23 21:31 | PCM.PROG ---
Progress Note - Progress Note for Day of Date of Exam: 08/14/18 - Subjective Subjective: IS A 53 YEAR OLD PATIENT OF OURS WHO WAS ADMITTED FOR DEHYDRATION, ACUTE RENAL FAILURE, HYPONATREMIA, A URINARY TRACT INFECTION, AND ABDOMINAL PAIN. ON MORNING ROUNDS, HE IS ALERT AND ORIENTED, LYING IN BED ON MORNING ROUNDS. HE CONTINUES WITH COMPLAINTS OF NAUSEA, VOMITING, ABDOMINAL PAIN, AND WEAKNESS. HE REPORTS THAT SYMPTOMS HAVE SLIGHTLY IMPROVED SINCE YESTERDAY. HE HAS BEEN AFEBRILE THROUGHOUT THE NIGHT. ON EXAMINATION, HEART IS REGULAR IN RATE AND RHYTHM. BILATERAL LUNGS ARE NOTED WITH DIMINISHED LUNG SOUNDS THROUGHOUT. ABDOMEN IS ROUND, SOFT, AND NOTED WITH DIFFUSE TENDERNESS ON PALPATION. HE DESCRIBES PAIN MILD THIS MORNING. HIS VITALS THIS MORNING ARE 98.5-105-22-93%RA-146/75. LABS WERE OBTAINED. WBC 11.9, RBC 4.24, HGB 13.4, HCT 39.8, SODIUM 129, CHLORIDE 96, BUN 46, CREATININE 2.70, CALCIUM 8.1, ALBUMIN 3.2. SEE EMR FOR OTHER LAB VALUES. WE DISCUSSED FINDINGS OF ABDOMEN/PELVIS CT REGARDING MALPOSITION OF THE IVC FILTER. HE REPORTS THAT PLACED HIS IVC FILTER A FEW YEARS AGO. WE CONTACTED , GENERAL SURGEON AND DISCUSSED FINDINGS WITH HIM. HE STATES THAT SURGICAL INTERVENTION IS NOT WARRANTED AT THIS TIME, HOWEVER, TO MAKE SURE PATIENT IS ON ANTICOAGULANTS AND TO HAVE HIM FOLLOW UP WITH VASCULAR SURGERY AFTER DISCHARGE. WE WILL REFER HIM TO [facility] AFTER DISCHARGE. HE IS CURRENTLY RECEIVING NORMAL SALINE FOR HYDRATION, IV ANTIBIOTICS, PEPCID IV, PROTONIX IV, MORPHINE FOR PAIN, AND ZOFRAN FOR NAUSEA. WE WILL INCLUDE HIS HOME MEDICATIONS TODAY, INCLUDING HIS XARELTO. WE WILL HOLD HIS DIURETICS THAT HE WAS TAKING AT HOME. OTHERWISE, WE WILL FOLLOW UP WITH AM LABS AND KUB AND CONTINUE TO MONITOR PATIENT. - Past Medical Family Social History Past Med/Fam/Surg Hx: No changes since H&P Allergies: Allergies No Known Drug Allergies Allergy (Verified 05/08/17 17:27) - Review of Systems ROS: No change since H&P - Vital Signs and I&O's Vital Signs: Temperature 98.8 F Pulse Rate [Left Brachial] 74 Pulse Rate 78 Respiratory Rate 16 Blood Pressure [Left Arm] 109/55 Blood Pressure [Right Arm] 129/93 Blood Pressure 154/87 O2 Sat by Pulse Oximetry 95 - Physical Exam Oriented: Normal Eyes: Normal Ear: Normal Nose: Normal Throat: Normal Respiratory: Diminished Cardiovascular: Tachycardia. negative: S3, S4, Murmur : Normal Auscultation: Bowel Sounds: Increased Palpation: Normal Tenderness: Diffuse, Mild. negative: Rebound, Guarding, Rigidity Skin: Normal Musculoskeletal: Normal Psychiatric: Normal Mood Description: Calm Affect: Normal Speech Pattern: Clear, Appropriate - Laboratory and Diagnostics Result Diagrams: 08/18/18 05:00 08/18/18 05:00 Labs: 08/13/18 16:18 Urine,Clean Catch Urine Culture - Final Laboratory WBC 9.0 X10^3/uL (3.6-10.0) 08/18/18 05:00 RBC 4.60 X10^6/uL (4.7-6.0) L 08/18/18 05:00 Hgb 14.6 g/dL (13.5-18.0) 08/18/18 05:00 Hct 42.9 % (42.0-54.0) 08/18/18 05:00 MCV 93.1 fL (80.0-100.0) 08/18/18 05:00 MCH 31.7 pg (27.0-34.0) 08/18/18 05:00 MCHC 34.1 g/dL (33.0-35.0) 08/18/18 05:00 RDW 15.1 % (11.6-16.5) 08/18/18 05:00 Plt Count 391 X10^3/uL (150.0-450.0) 08/18/18 05:00 MPV 7.1 fL (7.4-11.0) L 08/18/18 05:00 Neut % (Auto) 76.9 % (42.0-75.0) H 08/18/18 05:00 Lymph % (Auto) 8.4 % (21.0-51.0) L 08/18/18 05:00 [place] % (Auto) 12.0 % (0.0-13.0) 08/18/18 05:00 Eos % (Auto) 1.7 % (0.9-2.9) 08/18/18 05:00 Baso % (Auto) 1.0 % (0.2-1.0) 08/18/18 05:00 Neut # (Auto) 6.9 x10^3/uL (2.2-4.8) H 08/18/18 05:00 Lymph # (Auto) 0.8 X10^3/uL (1.3-2.9) L 08/18/18 05:00 [place] # (Auto) 1.1 x10^3/uL (0.3-0.8) H 08/18/18 05:00 Eos # (Auto) 0.2 x10^3/uL (0.0-0.2) 08/18/18 05:00 Baso # (Auto) 0.1 X10^3/uL (0.0-0.1) 08/18/18 05:00 Absolute Nucleated RBC 0.0 /100WBC 08/18/18 05:00 Sodium 130 mmol/L (136-145) L 08/18/18 05:00 Corrected Sodium TNP 08/18/18 05:00 Potassium 4.7 mmol/L (3.5-5.1) 08/18/18 05:00 Chloride 96 mmol/L (98-107) L 08/18/18 05:00 Carbon Dioxide 25.2 mmol/L (21-32) 08/18/18 05:00 BUN 9 mg/dL (7-18) 08/18/18 05:00 Creatinine 1.00 mg/dL (0.70-1.30) 08/18/18 05:00 Est GFR (MDRD) Af Amer > 60 (>60) 08/18/18 05:00 Est GFR (MDRD) Non-Af > 60 (>60) 08/18/18 05:00 Glucose 97 mg/dL (65-99) 08/18/18 05:00 Calcium 9.5 mg/dL (8.5-10.1) 08/18/18 05:00 Corrected Calcium TNP 08/18/18 05:00 Magnesium 2.5 mg/dL (1.7-2.9) 08/14/18 05:24 Total Bilirubin 0.30 mg/dL (0.2-1.0) 08/18/18 05:00 AST 38 Units/L (15-37) H 08/18/18 05:00 ALT 93 Units/L (12-78) H 08/18/18 05:00 Alkaline Phosphatase 132 Units/L (46-116) H 08/18/18 05:00 Total Protein 8.0 g/dL (6.4-8.2) 08/18/18 05:00 Albumin 3.6 g/dL (3.4-5.0) 08/18/18 05:00 Globulin 4.4 g/dL (2.5-4.5) 08/18/18 05:00 Albumin/Globulin Ratio 0.8 Ratio (1.1-2.1) L 08/18/18 05:00 Triglycerides 334 mg/dL (0-150) H 08/14/18 05:24 Cholesterol 287 mg/dL (0-200) H 08/14/18 05:24 LDL Cholesterol, Calc 189 mg/dL (0-100) H 08/14/18 05:24 HDL Cholesterol 31 mg/dL (40-60) L 08/14/18 05:24 Cholesterol/HDL Ratio 9.3 (0.0-5.0) H 08/14/18 05:24 Amylase 47 Units/L (25-115) 08/13/18 13:15 Lipase 525 Units/L (73-393) H 08/13/18 13:15 Specimen Type Clean catch urine 08/13/18 16:18 Urine Color Dark yellow (YELLOW) 08/13/18 16:18 Urine Appearance Slightly hazy (CLEAR) 08/13/18 16:18 Urine pH 5.0 (5.0 - 8.0) 08/13/18 16:18 Ur Specific [place] 1.020 (1.000-1.030) 08/13/18 16:18 Urine Protein 2+ (NEGATIVE) 08/13/18 16:18 Urine Glucose (UA) Negative (NEGATIVE) 08/13/18 16:18 Urine Ketones 1+ (NEGATIVE) 08/13/18 16:18 Urine Occult Blood 1+ (NEGATIVE) 08/13/18 16:18 Urine Nitrite Negative (NEGATIVE) 08/13/18 16:18 Urine Bilirubin 1+ (NEGATIVE) 08/13/18 16:18 Urine Urobilinogen 1+ (NORMAL) 08/13/18 16:18 Ur Leukocyte Esterase 2+ (NEGATIVE) 08/13/18 16:18 Urine RBC 5-10 /HPF (NONE SEEN) 08/13/18 16:18 Urine WBC 5-10 /HPF (NONE SEEN) 08/13/18 16:18 Ur Squamous Epith Cells Few /HPF (NEGATIVE) 08/13/18 16:18 Calcium Oxalate Crystal Moderate /HPF (NEGATIVE) 08/13/18 16:18 Urine Bacteria 1+ /HPF (NEGATIVE) 08/13/18 16:18 Hyaline Casts Few /LPF (NEGATIVE) 08/13/18 16:18 Ur Culture Indicated? Yes/culture set up 08/13/18 16:18 - Plan (1) Dehydration Status: Acute Plan: NORMAL SALINE AT 125ML/HR (2) Acute renal failure (ARF) Status: Acute Qualifiers: Acute renal failure type: unspecified Qualified Code(s): N17.9 - Acute kidney failure, unspecified Plan: NORMAL SALINE AT 30ML/HR (3) Hyponatremia Status: Acute Plan: NORMAL SALINE AT 30CC/HR (4) Urinary tract infection Status: Acute Qualifiers: Urinary tract infection type: site unspecified Hematuria presence: with hematuria Qualified Code(s): N39.0 - Urinary tract infection, site not specified; R31.9 - Hematuria, unspecified Plan: ROCEPHIN 1GM IV DAILY, CONTINUE TO MONITOR (5) Generalized weakness Status: Acute (6) Abdominal pain Status: Acute Qualifiers: Abdominal location: generalized Qualified Code(s): R10.84 - Generalized abdominal pain Plan: MORPHINE 2MG IV Q4H PRN PAIN (7) Nausea and vomiting Status: Acute Qualifiers: Vomiting type: unspecified Vomiting Intractability: unspecified Qualified Code(s): R11.2 - Nausea with vomiting, unspecified Plan: ZOFRAN 4MG IV PRN NAUSEA, CONTINUE TO MONITOR
--- NOTE | 2018-09-27 17:31 | DR.CARTERD ---
- Discharge Summary for: Discharge Summary for Date of:: 08/18/18 - Admission Date Date of Admission: 08/13/18 - Admission Diagnoses Admission Diagnosis: (1) Hyponatremia (2) Acute renal failure (ARF) (3) Abdominal pain (4) Dehydration (5) Generalized weakness (6) Urinary tract infection - Discharge Date Discharge Date: 08/18/18 - Discharge Diagnoses Discharge Diagnosis: (1) Hyponatremia (2) Acute renal failure (ARF) (3) Abdominal pain (4) Dehydration (5) Generalized weakness (6) Urinary tract infection - Hospital Course Hospital Course: DAY ONE, IS A 53 YEAR OLD PATIENT OF OURS WHO PRESENTED TO THE EMERGENCY ROOM WITH COMPLAINTS OF SEVERE NAUSEA, VOMITING, AND ABDOMINAL PAIN. HE REPORTED THAT HE HAD BEEN UNABLE TO KEEP ANYTHING DOWN SINCE ONE DAY PRIOR. HE REPORTED TAKING ZOFRAN AT HOME WITH NO RELIEF. ON ARRIVAL, VITALS WERE 96.5-03-15-90FA-98/54. LABS WERE OBTAINED. ABNORMAL LAB VALUES INCLUDED THE FOLLOWING: WBC 15.1, SODIUM 125, BUN 51, CREATININE 4.81, GLUCOSE 127, ALK PHOS 133, TOTAL PROTEIN 9.0, GLOBULIN 4.7, LIPASE 525. URINALYSIS REVEALED WBC 5-10, RBC 5-10, BACTERIA 1+, LEUKOCYTES 1+. AN ABDOMEN/PELVIS CT WAS OBTAINED AND REVEALED: Moderate distention of the stomach with fluid and air but no small bowel distention. Therefore there may be some gastric outlet obstruction. Malposition of the IVC filter. HE WAS ADMITTED TO THE HOSPITAL FOR FURTHER EVALUATION AND TREATMENT OF DEHYDRATION, HYPONATREMIA, ACUTE RENAL FAILURE, ABDOMINAL PAIN, AND A URINARY TRACT INFECTION. HE WAS STARTED ON NORMAL SALINE AT 125ML/HR, ROCEPHIN 1GM IV DAILY, MORPHINE 2MG IV Q4H PRN PAIN, AND ZOFRAN 4MG IV Q6H PRN NAUSEA. WE CONTINUED TO MONITOR PATIENT. DAY TWO, HE CONTINUED WITH COMPLAINTS OF NAUSEA, VOMITING, ABDOMINAL PAIN, AND WEAKNESS. HE REPORTED THAT SYMPTOMS HAD SLIGHTLY IMPROVED SINCE ADMISSION. HE HAD BEEN AFEBRILE THROUGHOUT THE NIGHT. ON EXAMINATION, HEART WAS REGULAR IN RATE AND RHYTHM. BILATERAL LUNGS WERE NOTED WITH DIMINISHED LUNG SOUNDS THROUGHOUT. ABDOMEN WAS ROUND, SOFT, AND NOTED WITH DIFFUSE TENDERNESS ON PALPATION. HE DESCRIBED PAIN MILD. HIS VITALS WERE 98.5-105-22-93%RA-146/75. LABS WERE OBTAINED. WBC 11.9, RBC 4.24, HGB 13.4, HCT 39.8, SODIUM 129, CHLORIDE 96, BUN 46, CREATININE 2.70, CALCIUM 8.1, ALBUMIN 3.2. SEE EMR FOR OTHER LAB CHANTAL UES. WE DISCUSSED FINDINGS OF ABDOMEN/PELVIS CT REGARDING MALPOSITION OF THE IVC FILTER. HE REPORTED THAT DR. NICOLE PLACED HIS IVC FILTER A FEW YEARS PRIOR. WE CONTACTED , GENERAL SURGEON AND DISCUSSED FINDINGS WITH HIM. HE STATED THAT SURGICAL INTERVENTION WAS NOT WARRANTED AT THIS TIME, HOWEVER, TO MAKE SURE PATIENT WAS ON ANTICOAGULANTS AND TO HAVE HIM FOLLOW UP WITH VASCULAR SURGERY AFTER DISCHARGE. WE PLANNED TO REFER HIM TO [facility] AFTER DISCHARGE. HE CONTINUED ON NORMAL SALINE FOR HYDRATION, IV ANTIBIOTICS, PEPCID IV, PROTONIX IV, MORPHINE FOR PAIN, AND ZOFRAN FOR NAUSEA. WE RESUMED HIS HOME MEDICATIONS, INCLUDING HIS XARELTO. WE HELD HIS DIURETICS THAT HE WAS TAKING AT HOME. DAY THREE, DR. GILL WAS COVERING AND REPORTED: SODIUM WAS IMPROVING AND WAS UP TO 131 FROM 125. HE REVIEWED XRAYS AND HE SEEMED TO HAVE A LITTLE BIT MORE STOOL BURDEN THAN HE SHOULD WHILE TAKING LINZESS. HE INCREASED DOSE OF LINZESS TO 290MCG. DAY FOUR, DR. GILL WAS COVERING AND REPORTED: HE WAS ASYMPTOMATIC; HOWEVER, HIS SODIUM HAD DROPPED TWO POINTS DESPITE NORMAL SALINE. IN REVIEWING HIS MEDICINES HE DIDN'T SEE ANY MEDICINES THAT WERE COMMONLY KNOWN TO CAUSE HYPONATREMIA. DR. GILL ENCOURAGED HIM TO DECREASE FREE WATER INTAKE AND STARTED HIM ON 3% SALINE. HIS BLOOD PRESSURE WAS ELEVATED IN THE 180S. HE STARTED NORVASC 5MG AND CONTINUED TO HOLD LASIX AND CHLORTHALIDONE. CIPRO WAS DISCONTINUED AND PATIENT WAS CONTINUED ON CEFTRIAXONE FOR SINUSITIS. DAY FIVE, DR. CEDENO WAS COVERING AND REPORTED: PATIENT CONTINUED WITH COMPLAINTS OF NAUSEA WITH ABDOMINAL BLOATING. HE DENIED BOWEL MOVEMENT SINCE ADMISSION. PATIENT STARTED ON MIRALAX. DR. CEDENO DISCONTINUED THE HYPERTONIC IV SOLUTION. PATIENT CONTINUED TO BE HYPERTENSIVE SO HE INCREASED NORVASC TO 10MG PO DAILY. DAY SIX, PATIENT REPORTED HE WAS FEELING BETTER. SODIUM WAS 130 IMPROVED FROM 125. PATIENT HAD SUCCESSFUL BOWEL MOVEMENT. NAUSEA AND VOMITING WERE RESOLVED AND PATIENT REPORTED ONLY MILD ABDOMINAL PAIN. ORAL INTAKE WAS FAIR. VITAL SIGNS STABLE. BP 154/87. LABS IMPROVED. WE PLANNED FOR DISCHARGE. INSTRUCTIONS FOR MEDICATIONS AND FOLLOW UP WERE DISCUSSED WITH PATIENT AND FAMILY, BOTH VOICED UNDERSTANDING. PATIENT DISCHARGED HOME IN STABLE CONDITION WITH FAMILY. - Discharge Medications Discharge Medications: Home Medication List Linzess 145 mcg PO DAILY 08/13/18 [History] acetaminophen-codeine 1 tab PO Q4-6H PRN 08/13/18 [History] oxycodone 30 mg PO .5XDAILY 08/13/18 [History] Xarelto 10 mg PO HS 08/14/18 [History] amlodipine 10 mg PO DAILY #30 tab 08/18/18 [Rx] ciprofloxacin HCl [Cipro] 1 tab PO BID #10 tab 08/18/18 [Rx] triamterene-hydrochlorothiazid [Dyazide] 1 cap PO QDAY #30 cap 08/18/18 [Rx] Prescriptions: amlodipine Devan Viveros ciprofloxacin HCl [Cipro] Devan Viveros triamterene-hydrochlorothiazid [Dyazide] Devan Viveros Ambulatory Orders Alprazolam 0.5 mg PO BID PRN 10/20/14 Carisoprodol 1 tab PO .5XDAILY 10/20/14 Lisinopril 20 mg PO BID 01/26/16 metoclopramide HCl 1 tab PO QID 01/26/16 sumatriptan succinate 1 tab PO PRN PRN 01/26/16 meloxicam 15 mg PO DAILY 05/08/17 nebivolol [Bystolic] 0.5 tab PO HS 05/08/17 omeprazole 1 cap PO BID 05/08/17 - Discharge Disposition Discharge Disposition: PATIENT IS TO FOLLOW UP WITH COLEEN JOHNSON WHEN APPOINTMENT IS AVAILABLE AND IN OUR OFFICE IN ONE WEEK.
== END 2018-08-18 13:40 | disposition home or self-care (01) | DRG 683 ==
LOC: ER 12:43 → ICU 16:14
PROVIDERS: ADMIT Internal Medicine; ATTEND Internal Medicine
DX: E78.2 Mixed hyperlipidemia; E87.1 Hypo-osmolality and hyponatremia; N17.8 Other acute kidney failure; R26.89 Other abnormalities of gait and mobility; N39.0 Urinary tract infection, site not specified; K31.1 Adult hypertrophic pyloric stenosis; R10.84 Generalized abdominal pain; R53.1 Weakness; K21.9 Gastro-esophageal reflux disease without esophagitis; E86.0 Dehydration; R11.2 Nausea with vomiting, unspecified
CPT/HCPCS: 36415; 71010; 71045; 74000; 74018; 74176; 80053; 80061; 81001; 82150; 83690; 83735; 85025; 87086; 96365; 96367; 96374; 96375; 97110; 97116; 97161; 99284; 99285; A4222; C9113; S0028; J0696; J0744; J2270; J2405; J7030; J7131

== ENCOUNTER 2020-11-14 17:10 | Observation (INO) ==
[2020-11-14 17:58] VITALS: BMI 43.0
--- NOTE | 2020-11-14 20:12 | DR.SOBA ---
HPI Time Seen Time Seen by Provider: 11/14/20 20:08 Primary Care Physician Primary Care Physician: Dr. Simpson HPI Comment HPI Comment: PATIENT WITH A HISTORY OF COPD COMPLAINS OF DYSPNEA X 1 YEAR, PROGRESSIVE EXERTIONAL DYSPNEA, LOW GRADE FEVER, ACHES, OVER THE PAST 4 DAYS. DENIES CHEST PAIN, PALPITATIONS, HAS HISTORY OF DVT LEFT LOWER EXTREMITY. Complaints Chief Complaint Doctors Comments: DRY COUGH AND DYSPNEA Chief Complaint:: cough and SOB Self Treatment fo Chief Complaint: Mucinex, Sudafed, neb treatments duo neb home treatments tid COVID-19 Coronavirus risk:travel/contact w/high risk person: No Has patient experienced Coronavirus symptoms: Yes Coronavirus symptoms experienced: Coughing Source History Provided: Patient Mode of Arrival Mode of Arrival: Ambulatory Timing Onset of Chief Complaint: 11/07/20 PMH PMH Past Medical History: Yes Past Medical History: Anxiety, Arthritis, Dyslipidemia, GERD, Hypertension and PUD Past Surgical History: Yes Surgical History: Other Family History History of Family Medical Conditions: Yes Family Medical History: Diabetes Mellitus, Cancer, [place], Coronary Artery Disease and Hypertension Social History Does patient currently use any type of tobacco product: No Have you used tobacco products in the last 12 months: No (quit 20 years ago) Does any household member use tobacco: No Alcohol Use: None Do you use any recreational Drugs:: No Lives With: Spouse Lives Where: Home Travel Risk Coronavirus risk:travel/contact w/high risk person: No Has patient experienced Coronavirus symptoms: Yes Coronavirus symptoms experienced: Coughing Infectious screening In the last 2 months have you had wt loss of >10#?: NO Have you had fever, night sweats or hemotysis?: No Have you traveled outside the country in the last 6 months?: No Isolation: Standard ROS Review of Systems Constitutional: No Symptoms Reported and See HPI Eyes: No Symptoms Reported ENTM: No Symptoms Reported Respiratoy: No Symptoms Reported, Non-Productive Cough and Short of Breath Cardiovascular: No Symptoms Reported Gastrointestinal/Abdominal: No Symptoms Reported Genitourinary: No Symptoms Reported Neurological: No Symptoms Reported Musculoskeletal: No Symptoms Reported Integumentary: No Symptoms Reported Hematologic/Lymphatic: No Symptoms Reported Endocrine: No Symptoms Reported Psychiatric: No Symptoms Reported All Other Systems: Reviewed and Negative PE Vital Signs Vitals: Temperature 98.2 F Pulse Rate 77 Respiratory Rate 20 Blood Pressure [Left Arm] 130/78 Blood Pressure 159/75 O2 Sat by Pulse Oximetry 94 General Limitations: No Limitations General Appearance: Alert and In No Apparent Distress Head Head Exam: Normal Inspection Eyes Eye exam: Normal Appearance ENT ENT Exam: Normal Exam and Normal Oropharynx Neck Neck Exam: Normal Inspection and Full ROM Chest Chest Inspection: Normal Inspection Respiratory Respiratory Exam: Normal Lung Sounds Bilat Respiratory Exam: Bilateral: Clear to Auscultation Cardiovascular Cardiovascular Exam: Regular Rate and Normal Rhythm Abdominal Exam Abdominal Exam: Normal Inspection, Normal Bowel Sounds and Soft Extremities Extremities Exam: Normal Inspection Back Back Exam: Normal Inspection and Full ROM Neurologic Neurological Exam: Alert and Oriented X3 Psychiatric Psychiatric Exam: Normal Affect and Normal Mood Skin Skin Exam: Warm, Dry, Intact and Normal Color MDM Differential Diagnosis Differential Diagnosis Comment:: PNEUMONIA COVID, CONGESTIVE HEART FAILURE COURSE Treatment Treatment: AFTER 2 SETS OF BLOOD CULTURES ADMINISTERED ROCEPHIN 1GM IVPB, SOLUMEDROL 125MG IV Consultation Consultation Comments: DISCUSSED WITH DR SIMPSON AT 0030 FOR OBSERVATION, WILL BEGIN REMDESIVIR PROTOCOL. IV SOLUMEDROL 125MG EVERY 6 HOURS ROR Labs Reviewed Result Diagrams: 11/15/20 04:45 11/15/20 04:45 Laboratory: 11/14/20 20:34 Blood Blood Culture - Final 11/14/20 20:39 Blood Blood Culture - Final WBC 13.7 X10^3/uL (3.6-10.0) H 11/14/20 20:34 RBC 5.32 X10^6/uL (4.7-6.0) 11/14/20 20:34 Hgb 15.0 g/dL (13.5-18.0) 11/14/20 20:34 Hct 45.4 % (42.0-54.0) 11/14/20 20:34 MCV 85.4 fL (80.0-100.0) 11/14/20 20:34 MCH 28.1 pg (27.0-34.0) 11/14/20 20:34 MCHC 32.9 g/dL (33.0-35.0) L 11/14/20 20:34 RDW 20.0 % (11.6-16.5) H 11/14/20 20:34 Plt Count 276 X10^3/uL (150.0-450.0) 11/14/20 20:34 MPV 7.3 fL (7.4-11.0) L 11/14/20 20:34 Neut % (Auto) 84.1 % (42.0-75.0) H 11/14/20 20:34 Lymph % (Auto) 6.6 % (21.0-51.0) L 11/14/20 20:34 [place] % (Auto) 8.9 % (0.0-13.0) 11/14/20 20:34 Eos % (Auto) 0.1 % (0.9-2.9) L 11/14/20 20:34 Baso % (Auto) 0.3 % (0.2-1.0) 11/14/20 20:34 Neut # (Auto) 11.5 x10^3/uL (2.2-4.8) H 11/14/20 20:34 Lymph # (Auto) 0.9 X10^3/uL (1.3-2.9) L 11/14/20 20:34 [place] # (Auto) 1.2 x10^3/uL (0.3-0.8) H 11/14/20 20:34 Eos # (Auto) 0.0 x10^3/uL (0.0-0.2) 11/14/20 20:34 Baso # (Auto) 0.0 X10^3/uL (0.0-0.1) 11/14/20 20:34 Absolute Nucleated RBC 0.1 /100WBC 11/14/20 20:34 PT 18.5 SECONDS (11.8-14.3) 11/14/20 20:34 INR Target Range - 11/14/20 20:34 INR 1.59 (0.8-1.3) H 11/14/20 20:34 Sample Site Lrad 11/15/20 00:10 ABG pH 7.360 (7.35-7.45) 11/15/20 00:10 ABG pCO2 48.0 mmHg (35.0-45.0) H 11/15/20 00:10 ABG pO2 62.0 mmHg (80.0-100.0) L 11/15/20 00:10 ABG HCO3 27.1 mmol/L (22-26) H 11/15/20 00:10 ABG O2 Saturation 90.0 % (90-100) 11/15/20 00:10 ABG Base Excess 1.1 mmol/L (-2.0-2.0) 11/15/20 00:10 Erick Test Pos 11/15/20 00:10 A-a Gradient 28.0 mmHg 11/15/20 00:10 FiO2 21.0 11/15/20 00:10 Blood Gas Comments James well ah 11/15/20 00:10 Sodium 129 mmol/L (136-145) L 11/14/20 20:34 Corrected Sodium TNP 11/14/20 20:34 Potassium 5.3 mmol/L (3.5-5.1) H 11/14/20 20:34 Chloride 92 mmol/L (98-107) L 11/14/20 20:34 Carbon Dioxide 25.2 mmol/L (21-32) 11/14/20 20:34 BUN 37 mg/dL (7-18) H 11/14/20 20:34 Creatinine 2.46 mg/dL (0.70-1.30) H 11/14/20 20:34 Est GFR (MDRD) Af Amer 35 (>60) L 11/14/20 20:34 Est GFR (MDRD) Non-Af 29 (>60) L 11/14/20 20:34 Glucose 92 mg/dL (65-99) 11/14/20 20:34 Calcium 9.5 mg/dL (8.5-10.1) 11/14/20 20:34 Corrected Calcium TNP 11/14/20 20:34 Ferritin 373 ng/mL (26-388) 11/14/20 23:33 Total Bilirubin 0.50 mg/dL (0.2-1.0) 11/14/20 20:34 AST 30 Units/L (15-37) 11/14/20 20:34 ALT 41 Units/L (12-78) 11/14/20 20:34 Alkaline Phosphatase 152 Units/L (46-116) H 11/14/20 20:34 Troponin I < 0.02 ng/mL (0-1.5) 11/14/20 20:34 C-Reactive Protein 106.60 mg/L (0-3.0) H 11/14/20 20:34 B-Natriuretic Peptide 5.6 pg/mL (0-79) 11/14/20 20:34 Total Protein 8.4 g/dL (6.4-8.2) H 11/14/20 20:34 Albumin 3.4 g/dL (3.4-5.0) 11/14/20 20:34 Globulin 5.0 g/dL (2.5-4.5) H 11/14/20 20:34 Albumin/Globulin Ratio 0.7 Ratio (1.1-2.1) L 11/14/20 20:34 Influenza Type A (PCR) Negative (NEGATIVE) 11/14/20 22:16 Influenza Type B (PCR) Negative (NEGATIVE) 11/14/20 22:16 SARS CoV-2 RNA Rapid SILVA Positive (NEGATIVE) A 11/14/20 22:16 XRAY XRAY Interpreted by: Radiologist X-ray Results: THE CHEST XRAY CONSISTENT WITH FAINT PERIPHERAL DENSITIES, ATYPICAL INFECTION Opioid Opioid Risk Tool Age (Jose box if 16-45): No History of Preadolescent Sexual Abuse: No Total: 0 Total Score Risk Category: Low Risk Copyright: Rolle LR predicting aberrant behaviors Diagnosis Discharge Problem: Pneumonia due to COVID-19 virus, Acute renal insufficiency Instructions Instructions: Incentive Spirometer Home Oxygen Use, Adult Hand Washing, Pqyg-sb-Ohti Upper Respiratory Infection, Adult, Weks-ic-Imds Shortness of Breath, Adult Droplet Precautions, Hbrx-oz-Rhig Contact Precautions, Vmxw-sb-Rtfu Hypertension, Gcfw-fx-Muvz Forms: Excuse From Work or School Precautions for COVID19 Patient Portal Social Distancing
--- NOTE | 2020-11-14 20:43 | RAD ---
HISTORYCough and SOBSTUDYCHEST, 1 VIEWCOMPARISONJuly 2016FINDINGSSUPPORT DEVICES: None.LUNGS/PLEURA: Faint peripheral densities, which may reflect atypical infectious process. No pleural effusion or space occupying pneumothorax.HEART AND MEDIASTINUM: Prominence of the cardiomediastinal silhouette, partially exaggerated by technique.BONES AND SOFT TISSUES: No acute abnormality.IMPRESSION1. Faint peripheral densities, which may reflect an atypical infectious process.Electronically signed by: Jorge Ma (Nov 14, 2020 20:41:07)
[2020-11-14 20:48] LABS: BASOPHILS % (AUTO) 0.3 % (0.2-1.0); EOSINOPHILS % (AUTO) 0.1 % (0.9-2.9); HEMATOCRIT 45.4 % (42.0-54.0); LYMPHOCYTES # (AUTO) 0.9 X10^3/uL (1.3-2.9); LYMPHOCYTES % (AUTO) 6.6 % (21.0-51.0); MEAN CORPUSCULAR HEMOGLOBIN 28.1 pg (27.0-34.0); MEAN CORPUSCULAR HGB CONC 32.9 g/dL (33.0-35.0); MEAN CORPUSCULAR VOLUME 85.4 fL (80.0-100.0); MEAN PLATELET VOLUME 7.3 fL (7.4-11.0); MONOCYTES # (AUTO) 1.2 x10^3/uL (0.3-0.8); MONOCYTES % (AUTO) 8.9 % (0.0-13.0); NEUTROPHILS # (AUTO) 11.5 x10^3/uL (2.2-4.8); NEUTROPHILS % (AUTO) 84.1 % (42.0-75.0); PLATELET COUNT 276 X10^3/uL (150.0-450.0); RED BLOOD COUNT 5.32 X10^6/uL (4.7-6.0); WHITE BLOOD COUNT 13.7 X10^3/uL (3.6-10.0)
[2020-11-14 21:10] LABS: ALANINE AMINOTRANSFERASE 41 Units/L (12-78); ALBUMIN 3.4 g/dL (3.4-5.0); ALKALINE PHOSPHATASE 152 Units/L (46-116); ASPARTATE AMINO TRANSFERASE 30 Units/L (15-37); BLOOD UREA NITROGEN 37 mg/dL (7-18); CALCIUM 9.5 mg/dL (8.5-10.1); CARBON DIOXIDE 25.2 mmol/L (21-32); CHLORIDE 92 mmol/L (98-107); CREATININE 2.46 mg/dL (0.70-1.30); SODIUM 129 mmol/L (136-145); TOTAL PROTEIN 8.4 g/dL (6.4-8.2); TROPONIN I < 0.02 ng/mL (0-1.5); eGFR NON BLACK RACES 29 (>60)
[2020-11-14] MEDS ORDERED: ROCEPHIN VIAL 1 GRAM 1 G in NS 100 ML IV + SPIKE MINIBAG* 100 ML IV ONE (22:16)
[2020-11-14] MEDS ORDERED: NS 1000 ML 1,000 ML ONE (22:55)
[2020-11-14] MEDS ORDERED: ROCEPHIN 1 GRAM IV PREMIX 1 G/50 ML IV.SOLN. IV ONE (22:55)
[2020-11-14] MEDS ORDERED: NS 1000 ML 1,000 ML IV SCH (23:45)
[2020-11-15 00:18] LABS: ABG BASE EXCESS 1.1 mmol/L (-2.0-2.0); ABG HCO3 27.1 mmol/L (22-26)
[2020-11-15 00:19] LABS: ABG ALLEN TEST POS
[2020-11-15] MEDS ORDERED: SOLU-Medrol 125 MG VIAL IVP ONE (01:06)
[2020-11-15] MEDS ORDERED: SOLU-Medrol 125 MG VIAL ONE ×2 (01:21→05:29)
[2020-11-15] MEDS ORDERED: REMDESIVIR 200 MG in NS 250 ML IV 250 ML IV ONE (02:23)
[2020-11-15] MEDS ORDERED: REMDESIVIR IV ONE (02:47)
[2020-11-15] MEDS ORDERED: NS 100 ML IV 100 ML IV ONE (02:47)
[2020-11-15] MEDS ORDERED: NS 250 ML IV 250 ML IV ONE (02:47)
[2020-11-15] MEDS ORDERED: ASCORBIC ACID INJ MULTI-DOSE VIAL IV ONE (02:47)
[2020-11-15] MEDS ORDERED: NS 1000 ML 1,000 ML IV SCH (03:00)
[2020-11-15] MEDS ORDERED: SOLU-Medrol 125 MG VIAL IVP SCH (03:00)
[2020-11-15] MEDS: ASCORBIC ACID INJ MULTI-DOSE VIAL 1,500 MG in NS 100 ML IV 100 ML IV SCH ×2 (03:17→09:48)
[2020-11-15 05:11] LABS: BASOPHILS % (AUTO) 0.3 % (0.2-1.0); HEMATOCRIT 42.8 % (42.0-54.0); LYMPHOCYTES # (AUTO) 0.4 X10^3/uL (1.3-2.9); LYMPHOCYTES % (AUTO) 3.3 % (21.0-51.0); MEAN CORPUSCULAR HEMOGLOBIN 28.1 pg (27.0-34.0); MEAN CORPUSCULAR HGB CONC 32.7 g/dL (33.0-35.0); MEAN CORPUSCULAR VOLUME 85.9 fL (80.0-100.0); MEAN PLATELET VOLUME 7.5 fL (7.4-11.0); MONOCYTES # (AUTO) 0.4 x10^3/uL (0.3-0.8); MONOCYTES % (AUTO) 2.8 % (0.0-13.0); NEUTROPHILS # (AUTO) 12.6 x10^3/uL (2.2-4.8); NEUTROPHILS % (AUTO) 93.6 % (42.0-75.0); PLATELET COUNT 255 X10^3/uL (150.0-450.0); RED BLOOD COUNT 4.99 X10^6/uL (4.7-6.0); RED CELL DISTRIBUTION WIDTH 20.4 % (11.6-16.5); WHITE BLOOD COUNT 13.4 X10^3/uL (3.6-10.0)
[2020-11-15 05:26] LABS: ANISOCYTOSIS 1+; BAND NEUTROPHILS % 1 % (0-10); PLATELET MORPHOLOGY COMMENT NORMAL (NORMAL)
[2020-11-15 05:28] LABS: ALANINE AMINOTRANSFERASE 41 Units/L (12-78); ALBUMIN 3.1 g/dL (3.4-5.0); ALKALINE PHOSPHATASE 139 Units/L (46-116); ASPARTATE AMINO TRANSFERASE 33 Units/L (15-37); BLOOD UREA NITROGEN 45 mg/dL (7-18); CALCIUM 8.7 mg/dL (8.5-10.1); CARBON DIOXIDE 24.8 mmol/L (21-32); CHLORIDE 93 mmol/L (98-107); COR CA(FOR HYPOALB) 9.4 mg/dL (8.5-10.1); CREATININE 2.52 mg/dL (0.70-1.30); SODIUM 127 mmol/L (136-145); eGFR NON BLACK RACES 28 (>60)
[2020-11-15] MEDS ORDERED: TORADOL 60 MG VIAL IVP ONE (05:57)
[2020-11-15] MEDS: SOLU-Medrol 125 MG VIAL IVP SCH ×2 (05:59→09:48)
[2020-11-15] MEDS ORDERED: TORADOL 60 MG VIAL ONE (06:00)
[2020-11-15 08:21] VITALS: BP 155/67
[2020-11-15] MEDS ORDERED: ZINC SULFATE PO SCH (09:00)
[2020-11-15] MEDS ORDERED: PEPCID TAB 40 MG PO SCH (09:00)
[2020-11-15] MEDS ORDERED: VITAMIN D (1.25MG) PO SCH (09:00)
[2020-11-15] MEDS ORDERED: LIPITOR TAB 80 MG PO SCH (09:00)
[2020-11-15] MEDS ORDERED: THIAMINE HCL INJ IVP SCH (09:00)
[2020-11-15] MEDS ORDERED: VIBRAMYCIN PO SCH (09:00)
[2020-11-15] MEDS ORDERED: TRICOR TAB 160 MG PO SCH (09:00)
[2020-11-15] MEDS ORDERED: VITAMIN A PO SCH (09:00)
[2020-11-15] MEDS ORDERED: REMDESIVIR 100 MG in NS 250 ML IV 250 ML IV SCH (21:00)
[2020-11-16] MEDS ORDERED: PEPCID TAB 40 MG PO SCH (09:00)
[2020-11-17] MEDS ORDERED: VITAMIN D3 125 mcg (5,000 UNITS) PO SCH (09:00)
[2020-11-17] MEDS ORDERED: VITAMIN A PO SCH (09:00)
--- NOTE | 2020-12-03 23:46 | DR.CARTERS ---
Short Stay Summary - Admission Date Date of Admission: 11/15/20 - Discharge Date Discharge Date: 11/15/20 - Admission Diagnoses (1) Pneumonia due to COVID-19 virus Status: Acute - Hospital Course Hospital Course: IS A 55 YEAR OLD PATIENT OF OURS. HE PRESENTED TO THE ER WITH COMPLAINTS OF INCREASED SHORTNESS OF BREATH, EXERTIONAL DYSPNEA, FEVER, BODY ACHES, COUGH, AND SHORTNESS OF BREATH. SYMPTOMS STARTED ABOUT 2 DAYS PRIOR. HE DENIED CHEST PAIN OR PALPITATIONS. HE REPORTED TAKING MUCINEX, SUDAFED, AND DUONEBS AT HOME WITHOUT IMPROVEMENT IN SYMPTOMS. HIS PMH INCLUDES: LLE DVT, ANXIETY, ARTHRITIS, DYSLIPIDEMIA, GERD, HTN, AND PUD. ON ARRIVAL TO THE ER, VITALS WERE 98.2-100-20-92%-117/60. LABS WERE OBTAINED. ABNORMAL LAB VALUES INCLUDE THE FOLLOWING: WBC 13.7, INR 1.59, SODIUM 129, POTASSIUM 5.3, CHLORIDE 92, BUN 37, CREATININE 2.46, ALK PHOS 152, CRP 106.60, TOTAL PROTEIN 8.4, GLOBULIN 5.0. COVID-19 POSITIVE. AN ABG WAS OBTAINED AND REVEALED: PH 7.360, P02 48, P02 62, HC03 27.1, 02 SAT 90, A-A GRADIENT 28, FI02 21. BLOOD CULTURES ARE PENDING. COVID-19 POSITIVE. A CHEST XRAY WAS OBTAINED AND REVEALED: 1. Faint peripheral densities, which may reflect an atypical infectious process. EKG REVEALED SINUS RHYTHM WITH HR 84. WHILE IN THE ER, HE WAS GIVEN ROCEPHIN 1G IV X 1 DOSE, SOLU-MEDROL 125MG IV X 1 DOSE, REMDESIVIR 200MG IV X 1 DOSE, TORADOL 60MG IV X 1 DOSE. HE WAS ADMITTED TO THE HOSPITAL FOR FURTHER EVALUATION AND TREATMENT OF PNEUMONIA DUE TO COVID-19. HE WAS STARTED ON NORMAL SALINE AT 75 ML/HR, REMDESIVIR 100MG IV DAILY, PEPCID 40MG PO DAILY, SOLU-MEDROL 125MG IV Q8H, ZINC 220MG PO BID, VITAMIN A DAILY, THIAMINE 200MG IV BID, TRICOR 160MG PO DAILY, VITAMIN D DAILY, ATORVASTATIN 80MG PO DAILY, ASCORBIC ACID 1500MG IV Q6H. OTHERWISE, WE PLANNED TO FOLLOW UP WITH AM LABS, CHEST XRAY, ABG, AND CONTINUE TO MONITOR. ON THE MORNING FOLLOWING ADMISSION, PATIENT IS ALERT AND ORIENTED, SITTING UP IN BED ON MORNING ROUNDS. HE CONTINUES WITH WEAKNESS AND SHORTNESS OF BREATH, BUT REPORTS IMPROVEMENT IN SYMPTOMS SINCE ADMSSION. HE IS CURRENTLY UTILIZING OXYGEN VIA NASAL CANNULA AT 2 LPM. HIS SATURATIONS HAVE BEEN 93-97% TODAY AND THROUGHOUT THE NIGHT. ON EXAMINATION, HEART IS REGULAR IN RATE AND RHYTHM. BILATERAL LUNGS ARE NOTED WITH DIMINISHED LUNG SOUNDS THROUGHOUT. ABDOMEN IS ROUND, SOFT, AND NON-TENDER WITH NORMAL BOWEL SOUNDS NOTED IN ALL QUADRANTS. HIS VITALS THIS MORNING ARE: 97.1-82-27-94%NC-155/67. LABS WERE OBTAINED. ABNORMAL LAB VALUES INCLUDE THE FOLLOWING: WBC 13.4, SODIUM 127, POTASSIUM 6.5, CHLORIDE 93, BUN 45, CREATININE 2.52, GLCUOSE 108, ALK PHOS 139, ALBUMIN 3.1, GLOBULIN 4.9. BLOOD CULTURES PENDING. WE PLANNED FOR DISCHARGE. INSTRUCTIONS FOR MEDICATIONS AND FOLLOW UP WERE DISCUSSED WITH PATIENT AND HIS SPOUSE. HE WAS INS TRUCTED TO RETURN TO THE HOSPITAL FOR THREE ADDITIONAL DOSES OF REMDESIVIR. HE WAS GIVEN PRESCRIPTIONS FOR ELIQUIS 5MG PO BID, PEPCID 40MG PO BID, IVERMECTIN 27MG PO X 2 DOSES, PROTONIX 40MG PO BID, AND DUONEBS TID. HE WAS INSTRUCTED TO FOLLOW UP IN THE OFFICE IN 1 WEEK. HE WAS DISCHARGED HOME WITH FAMILY IN STABLE CONDITION. TIME SPENT ON CLINICAL ASSESSMENT, REVIEWING LABS AND IMAGING, DECISION MAKING, AND DOCUMENTATION GREATER THAN 75 MINUTES. - Discharge Medications Discharge Medications: Home Medication List apixaban [Eliquis] 5 mg PO BID #60 tab 11/15/20 [Rx] famotidine [Pepcid] 40 mg PO BID #60 tab 11/15/20 [Rx] ipratropium-albuterol 1 neb NEB TID #90 each 11/15/20 [Rx] ivermectin 27 mg PO .TODAY AND FRIDAY #18 tab 11/15/20 [Rx] pantoprazole 40 mg PO BID #60 tab 11/15/20 [Rx] Prescriptions: apixaban [Eliquis] Devan Viveros famotidine [Pepcid] Devan Viveros ipratropium-albuterol Devan Viveros ivermectin Devan Viveros pantoprazole Devan Viveros - Discharge Plan Disposition: HOME, SELF-CARE Condition: Stable Prescriptions: apixaban [Eliquis] 5 mg PO BID #60 tab famotidine [Pepcid] 40 mg PO BID #60 tab ipratropium-albuterol 1 neb NEB TID #90 each ivermectin 27 mg PO . AND FRIDAY #18 tab pantoprazole 40 mg PO BID #60 tab - Follow up/Referrals Follow up/Referrals: Devan Viveros [Primary Care Provider] - 11/22/20 10:40 am - Instructions Instructions: Incentive Spirometer, Home Oxygen Use, Adult, Hand Washing, [id number], Upper Respiratory Infection, Adult, [id number], Shortness of Breath, Adult, Droplet Precautions, [id number], Contact Precautions, Mnca-as-Vwur, Hypertension, Xwce-jl-[id number] Additional Instructions: Continue to quarantine at home until you have completed 14 days from the first positive COVID result. Follow up with Dr. Viveros on 11/22/20 at 10:40 it will be by phone call from the office. Practice CDC guidelines hand washing, social distancing and wear a mask. Avoid crowds and stay at home. Return to the hospital for IV Remdesivir and Solumedrol on 11/16/20 for outpatient medications. Forms: Excuse From Work or School, Precautions for COVID19, Patient Portal, Social Distancing
== END 2020-11-15 12:00 | disposition home or self-care (01) ==
LOC: ER 17:50 → OBS 17:50
PROVIDERS: ADMIT Internal Medicine; ATTEND Internal Medicine
DX: I10 Essential (primary) hypertension; R79.82 Elevated C-reactive protein (CRP); U07.1 COVID-19; R94.4 Abnormal results of kidney function studies; F41.8 Other specified anxiety disorders; R79.89 Other specified abnormal findings of blood chemistry; R06.02 Shortness of breath; E87.5 Hyperkalemia; R79.1 Abnormal coagulation profile; K21.9 Gastro-esophageal reflux disease without esophagitis; J12.82 Pneumonia due to coronavirus disease 2019; E78.2 Mixed hyperlipidemia

== ENCOUNTER 2021-02-10 10:58 | Observation (INO) ==
[2021-02-10 11:14] VITALS: BMI 43.8
[2021-02-10] MEDS ORDERED: NS 1000 ML 1,000 ML IV ONE ×2 (11:30→13:53)
[2021-02-10] MEDS ORDERED: NS 1000 ML 1,000 ML ONE ×2 (11:31→13:51)
[2021-02-10 11:44] LABS: BASOPHILS # (AUTO) 0.1 X10^3/uL (0.0-0.1); BASOPHILS % (AUTO) 0.6 % (0.2-1.0); EOSINOPHILS # (AUTO) 0.1 x10^3/uL (0.0-0.2); EOSINOPHILS % (AUTO) 1.2 % (0.9-2.9); HEMATOCRIT 38.3 % (42.0-54.0); HEMOGLOBIN 12.4 g/dL (13.5-18.0); LYMPHOCYTES # (AUTO) 0.6 X10^3/uL (1.3-2.9); LYMPHOCYTES % (AUTO) 5.2 % (21.0-51.0); MEAN CORPUSCULAR HEMOGLOBIN 30.4 pg (27.0-34.0); MEAN CORPUSCULAR HGB CONC 32.4 g/dL (33.0-35.0); MEAN CORPUSCULAR VOLUME 93.9 fL (80.0-100.0); MEAN PLATELET VOLUME 7.9 fL (7.4-11.0); MONOCYTES # (AUTO) 0.9 x10^3/uL (0.3-0.8); MONOCYTES % (AUTO) 7.9 % (0.0-13.0); NEUTROPHILS # (AUTO) 9.8 x10^3/uL (2.2-4.8); NEUTROPHILS % (AUTO) 85.1 % (42.0-75.0); PLATELET COUNT 304 X10^3/uL (150.0-450.0); RED BLOOD COUNT 4.08 X10^6/uL (4.7-6.0); RED CELL DISTRIBUTION WIDTH 18.6 % (11.6-16.5); WHITE BLOOD COUNT 11.6 X10^3/uL (3.6-10.0)
[2021-02-10 11:51] LABS: ALANINE AMINOTRANSFERASE 92 Units/L (12-78); ALBUMIN 3.2 g/dL (3.4-5.0); ALKALINE PHOSPHATASE 138 Units/L (46-116); ASPARTATE AMINO TRANSFERASE 63 Units/L (15-37); BLOOD UREA NITROGEN 28 mg/dL (7-18); CALCIUM 9.2 mg/dL (8.5-10.1); CARBON DIOXIDE 36.2 mmol/L (21-32); CHLORIDE 93 mmol/L (98-107); COR CA(FOR HYPOALB) 9.8 mg/dL (8.5-10.1); CREATININE 1.62 mg/dL (0.70-1.30); SODIUM 130 mmol/L (136-145); eGFR NON BLACK RACES 47 (>60)
--- NOTE | 2021-02-10 12:15 | CT ---
CT ABDOMEN & PELVIS W/O CONHistory: Pt c/o llq abd pain s/p fall yesterday. He states he walked to the bathroom this am and got dizzy and passed out while sitting on toiletTechnique: CT images of the abdomen and pelvis were obtained without contrast. Reformatted images in the coronal and sagittal planes also generated for review. Automatic exposure was utilized.Comparison: 08/13/2018Findings: Imaged lung bases are clear. No acute fracture or malalignment is identified. The unenhanced superficial soft tissues are grossly unremarkable.Please note that evaluation for soft tissue pathology is limited without IV contrast. Accounting for this, the unenhanced liver is mildly enlarged and diffusely steatotic without gross focal lesion. The nondistended gallbladder, spleen, pancreas, adrenals and kidneys are unremarkable. No urolithiasis or obstructive uropathy.There is no bowel obstruction or gross inflammation. The visualized appendix is normal. Abdominal aorta is minimally calcified without aneurysm. IVC filter noted. Urinary bladder is grossly unremarkable. Prostate is not enlarged. There is no free air, free fluid or bulky lymphadenopathy.Impression:No acute traumatic injury identified within the abdomen or pelvis, within the limitations of a noncontrast exam.Enlarged fatty liver and additional nonacute findings as above.Electronically signed by: KANE LUI (Feb 10, 2021 12:13:48)
--- NOTE | 2021-02-10 12:22 | DR.ABDMALE ---
HPI Time seen Time Seen by Provider: 02/10/21 11:32 PCP Primary Care Physician: Dr Viveros Complaint Chief Complaint Doctors Comments: Abdominal pain Pt accompanied by . Takes multiple medications including methadone, Tylenol with codeine ,gabapentin ,Ultram ,fell after being drowsy .hit the side of his left belly .Today when went to bathroom had x1 without hitting his head.did not loose conciousness called the ambulance and brought patient to ER. Chief Complaint:: Pt c/o llq abd pain s/p fall yesterday. He states he walked to the bathroom this am and got dizzy and passed out while sitting on toilet. He also states he feels confused and has difficulty answering questions. Pt reports last bm was 4 days ago. Self Treatment fo Chief Complaint: Pt took Tizanidine 4 mg, tramadol 50 mg, methadone 10 mg, gabapentin 600 mg, and acetam/cod 300 mg / 60 mg at approx 1030 this am. COVID-19 Coronavirus risk:travel/contact w/high risk person: No Has patient experienced Coronavirus symptoms: No Reviewed Nurses Notes Review: Yes Mode of arrival Mode of Arrival: EMS Timing Onset of Chief Complaint: 02/10/21 Came on: Gradually Duration Duration: Intermittent Duration: Days Location Location: [facility] Severity Severity: Moderate Quality Quality: Aching Context Onset: Gradually (aftre fall ) History of: None Modifying factors Worsening Factors: Position Associated signs and symptoms Associated Signs and Symptoms: None PMH PMH Past Medical History: Yes Past Medical History: Anxiety, Arthritis, Dyslipidemia, GERD, Hypertension and PUD Past Medical History Comment: chronic back pain DVT Past Surgical History: Yes Surgical History: Other Past Surgical History Comment: Morgan filter Family History History of Family Medical Conditions: Yes Family Medical History: Diabetes Mellitus, Cancer, [place], Coronary Artery Disease and Hypertension Social History Does patient currently use any type of tobacco product: No Have you used tobacco products in the last 12 months: No Type of Tobacco Use: None Does any household member use tobacco: No Alcohol Use: None Do you use any recreational Drugs:: No Lives With: Family Lives Where: Home Travel Risk Coronavirus risk:travel/contact w/high risk person: No Has patient experienced Coronavirus symptoms: No Infectious screening In the last 2 months have you had wt loss of >10#?: NO Have you had fever, night sweats or hemotysis?: No Have you traveled outside the country in the last 6 months?: No Isolation: Standard ROS Review of Systems Constitutional: Weakness and Fatigue Eyes: Tearing ENTM: No Symptoms Reported and Hearing Loss Respiratoy: Short of Breath Gastrointestinal/Abdominal: Abdominal Pain and Constipation Genitourinary: No Symptoms Reported Neurological: Dizziness Musculoskeletal: Back Integumentary: No Symptoms Reported Endocrine: No Symptoms Reported Psychiatric: No Symptoms Reported PE Vital Signs Vital Signs: Temp Pulse Resp BP BP Pulse Ox 02/10/21 13:00 111 H 20 107/58 96 02/10/21 12:00 98.6 F 121 H 22 110/58 97 02/10/21 10:59 101.8 F H 130 H 20 141/70 91 L 11/20/20 10:14 142/79 General Limitations: No Limitations General Appearance: Alert and Lethargic Head Head Exam: Normal Inspection and Atraumatic Eyes Eye exam: Normal Appearance and PERRL ENT ENT Exam: Normal Exam, Mucous Membranes Dry and Other (low lying oropharynx) Neck Neck Exam: Full ROM Chest Chest Inspection: Normal Inspection Respiratory Respiratory Exam: Normal Lung Sounds Bilat Cardiovascular Cardiovascular Exam: Regular Rate, Tachycardia, +S1 and +S2 Abdominal Exam Abdominal Exam: Normal Bowel Sounds, Soft and Tenderness Abdominal Tenderness: [facility] Back Back Exam: Normal Inspection Extremeties Extremities Exam: Normal Inspection Neurologic Neurological Exam: Alert and Other (confused ) Skin Skin Exam: Warm MDM Additional Information Obtained From Additional Findings:: fall,concercern about spleen rupture,dehydration ,tacchycardia, lehargic, Differential Diagnosis Other differential diagnosis: morbid obesity COURSE Treatment Treatment: labs cbc, cmp, ctof abdomen IV fluids ROR Labs Reviewed Laboratory Results Reviewed?: Yes Result Diagrams: 02/10/21 11:10 02/10/21 11:10 Laboratory: WBC 11.6 X10^3/uL (3.6-10.0) H 02/10/21 11:10 RBC 4.08 X10^6/uL (4.7-6.0) L 02/10/21 11:10 Hgb 12.4 g/dL (13.5-18.0) L 02/10/21 11:10 Hct 38.3 % (42.0-54.0) L 02/10/21 11:10 MCV 93.9 fL (80.0-100.0) 02/10/21 11:10 MCH 30.4 pg (27.0-34.0) 02/10/21 11:10 MCHC 32.4 g/dL (33.0-35.0) L 02/10/21 11:10 RDW 18.6 % (11.6-16.5) H 02/10/21 11:10 Plt Count 304 X10^3/uL (150.0-450.0) 02/10/21 11:10 MPV 7.9 fL (7.4-11.0) 02/10/21 11:10 Neut % (Auto) 85.1 % (42.0-75.0) H 02/10/21 11:10 Lymph % (Auto) 5.2 % (21.0-51.0) L 02/10/21 11:10 [place] % (Auto) 7.9 % (0.0-13.0) 02/10/21 11:10 Eos % (Auto) 1.2 % (0.9-2.9) 02/10/21 11:10 Baso % (Auto) 0.6 % (0.2-1.0) 02/10/21 11:10 Neut # (Auto) 9.8 x10^3/uL (2.2-4.8) H 02/10/21 11:10 Lymph # (Auto) 0.6 X10^3/uL (1.3-2.9) L 02/10/21 11:10 [place] # (Auto) 0.9 x10^3/uL (0.3-0.8) H 02/10/21 11:10 Eos # (Auto) 0.1 x10^3/uL (0.0-0.2) 02/10/21 11:10 Baso # (Auto) 0.1 X10^3/uL (0.0-0.1) 02/10/21 11:10 Absolute Nucleated RBC 0.4 /100WBC 02/10/21 11:10 Sodium 130 mmol/L (136-145) L 02/10/21 11:10 Corrected Sodium TNP 02/10/21 11:10 Potassium 4.5 mmol/L (3.5-5.1) 02/10/21 11:10 Chloride 93 mmol/L (98-107) L 02/10/21 11:10 Carbon Dioxide 36.2 mmol/L (21-32) H 02/10/21 11:10 BUN 28 mg/dL (7-18) H 02/10/21 11:10 Creatinine 1.62 mg/dL (0.70-1.30) H 02/10/21 11:10 Est GFR (MDRD) Af Amer 57 (>60) L 02/10/21 11:10 Est GFR (MDRD) Non-Af 47 (>60) L 02/10/21 11:10 Glucose 100 mg/dL (65-99) H 02/10/21 11:10 Calcium 9.2 mg/dL (8.5-10.1) 02/10/21 11:10 Corrected Calcium 9.8 mg/dL (8.5-10.1) 02/10/21 11:10 Total Bilirubin 0.90 mg/dL (0.2-1.0) 02/10/21 11:10 AST 63 Units/L (15-37) H 02/10/21 11:10 ALT 92 Units/L (12-78) H 02/10/21 11:10 Alkaline Phosphatase 138 Units/L (46-116) H 02/10/21 11:10 Total Protein 8.0 g/dL (6.4-8.2) 02/10/21 11:10 Albumin 3.2 g/dL (3.4-5.0) L 02/10/21 11:10 Globulin 4.8 g/dL (2.5-4.5) H 02/10/21 11:10 Albumin/Globulin Ratio 0.7 Ratio (1.1-2.1) L 02/10/21 11:10 Other Results Comments: CT of abdomen neg for spleen rupture or acute problem Opioid Opioid Risk Tool Age (Jose box if 16-45): No History of Preadolescent Sexual Abuse: No Total: 0 Total Score Risk Category: Low Risk Copyright: [employer] predicting aberrant behaviors Diagnosis Discharge Problem: Taking multiple drugs for chronic disease, Dehydration, Acute hyponatremia, Tachycardia Acute on chronic renal failure Qualifiers: Chronic kidney disease stage: stage 3 (moderate) ADDITIONAL NOTES Additional Notes Additional Notes: anemia ,acute chronic renal failure stage 3 ,multiple medication use ,chronic back pain ,dehydration ,hyponatremia, abnormal liver function
[2021-02-10] MEDS: NS 1000 ML 1,000 ML IV SCH (17:00)
[2021-02-10] MEDS: PULMICORT NEB TX 0.5 MG NEB SCH (20:30)
[2021-02-10] MEDS: PROVENTIL NEB TX 0.083% 2.5MG/ 3ML NEB SCH (20:30)
[2021-02-10] MEDS ORDERED: STERILE WATER IRRIGATION IR ONE (23:21)
[2021-02-11] MEDS: NS 1000 ML 1,000 ML IV SCH ×5 (02:29→17:20)
[2021-02-11 05:36] LABS: BASOPHILS % (AUTO) 0.3 % (0.2-1.0); EOSINOPHILS # (AUTO) 0.2 x10^3/uL (0.0-0.2); HEMATOCRIT 33.8 % (42.0-54.0); HEMOGLOBIN 10.7 g/dL (13.5-18.0); LYMPHOCYTES # (AUTO) 0.5 X10^3/uL (1.3-2.9); LYMPHOCYTES % (AUTO) 7.9 % (21.0-51.0); MEAN CORPUSCULAR HEMOGLOBIN 29.9 pg (27.0-34.0); MEAN CORPUSCULAR HGB CONC 31.8 g/dL (33.0-35.0); MEAN CORPUSCULAR VOLUME 94.3 fL (80.0-100.0); MEAN PLATELET VOLUME 7.7 fL (7.4-11.0); MONOCYTES # (AUTO) 0.9 x10^3/uL (0.3-0.8); MONOCYTES % (AUTO) 14.9 % (0.0-13.0); NEUTROPHILS # (AUTO) 4.5 x10^3/uL (2.2-4.8); NEUTROPHILS % (AUTO) 73.9 % (42.0-75.0); PLATELET COUNT 254 X10^3/uL (150.0-450.0); RED BLOOD COUNT 3.59 X10^6/uL (4.7-6.0); RED CELL DISTRIBUTION WIDTH 18.9 % (11.6-16.5); WHITE BLOOD COUNT 6.1 X10^3/uL (3.6-10.0)
[2021-02-11 05:48] LABS: ALANINE AMINOTRANSFERASE 83 Units/L (12-78); ALBUMIN 2.6 g/dL (3.4-5.0); ALKALINE PHOSPHATASE 105 Units/L (46-116); ASPARTATE AMINO TRANSFERASE 54 Units/L (15-37); BLOOD UREA NITROGEN 20 mg/dL (7-18); CALCIUM 8.1 mg/dL (8.5-10.1); CARBON DIOXIDE 30.4 mmol/L (21-32); CHLORIDE 95 mmol/L (98-107); COR CA(FOR HYPOALB) 9.2 mg/dL (8.5-10.1); COR NA(FOR HYPERGLY) 132 mmol/L (136-145); CREATININE 1.48 mg/dL (0.70-1.30); SODIUM 131 mmol/L (136-145); TOTAL PROTEIN 6.5 g/dL (6.4-8.2); eGFR NON BLACK RACES 52 (>60)
[2021-02-11] MEDS: PROVENTIL NEB TX 0.083% 2.5MG/ 3ML NEB SCH ×2 (08:13→21:25)
[2021-02-11] MEDS: PULMICORT NEB TX 0.5 MG NEB SCH ×2 (08:13→21:26)
[2021-02-11] MEDS ORDERED: VOLTAREN 1 % GEL MULTI DOSE TUBE TOP PRN (08:46)
--- NOTE | 2021-02-11 09:59 | DR.H&P ---
H&P - History & Physical for Day of: H&P Date: 02/10/21 - Chief Complaint Chief Complaint: weakness, near syncope, dizziness - History of Present Illness History of Present Illness: PT IS 55 WM ER ADMISSION WITH SPOUSE STATING PT HAS HAD UNSTEADY GAIT, DIZZINESS, WEAKNESS. PT CO LOWER ABDOMINAL PAIN AND CONSTIPATION. PT ALSO CO SWELLING TO BOTH LEGS, WITH SOME IMPROVEMENT WHILE TAKING LASIX 80 BID FOR 2 WEEKS. PT CO "WALKING TO THE BATHROOM" HE BECAME VERY DIZZY, LIGHT HEADED. PT HAD PMH OF HTN, OA, GROUP HOME PAIN CONTROL WITH OPIOID PAIN MEDICATION USE. - Past Medical History Past Medical History: Hypertension, Dyslipidemia, Anxiety, PUD, GERD, Arthritis Additional Medical History: Pulmonary Embolus, Deep Vein Thrombosis, Vision Deficit, Hearing Deficit, Cardiac Arrhythmia, Seasonal Allergies, Slow Digestion, Muscle Weakness, Fibromyalgia, Back Pain, Degenerative Disc Disease - Past Surgical History Surgical History: Other - Family History Family Medical History: Diabetes Mellitus, Cancer, [place], Coronary Artery Disease, Hypertension - Social History Does patient currently use any type of tobacco product: No Have you used tobacco products in the last 12 months: No Type of Tobacco Use: None Does any household member use tobacco: No Alcohol Use: None Drug Use: None - Medications Home Medications: No Known Drug Allergies Allergy (Verified 05/08/17 17:27) CONTINUE taking the following medications acetaminophen-codeine 1 tab PO QID PRN 02/10/21 [History] alprazolam [Xanax] 0.5 mg PO BID 02/10/21 [History] cetirizine 10 mg PO DAILY 02/10/21 [History] famotidine 40 mg PO BID 02/10/21 [History] ferrous sulfate 325 mg PO DAILY 02/10/21 [History] fluticasone propionate [Flonase] 1 mcg INTRANASAL DAILY 02/10/21 [History] furosemide 80 mg PO BID 02/10/21 [History] gabapentin 600 mg PO QID PRN 02/10/21 [History] linaclotide [Linzess] 290 mcg PO DAILY 02/10/21 [History] losartan-hydrochlorothiazide [Hyzaar] 1 tab PO DAILY 02/10/21 [History] magnesium 250 mg PO DAILY 02/10/21 [History] meloxicam 15 mg PO DAILY 02/10/21 [History] methadone 10 mg PO QID PRN 02/10/21 [History] metoclopramide HCl [Reglan] 10 mg PO QID PRN 02/10/21 [History] metoprolol succinate 50 mg PO DAILY 02/10/21 [History] omeprazole [Prilosec] 20 mg PO BID 02/10/21 [History] potassium 99 mg PO DAILY 02/10/21 [History] rivaroxaban [Xarelto] 15 mg PO DAILY 02/10/21 [History] tizanidine 4 mg PO BID PRN 02/10/21 [History] tramadol 50 mg PO QID PRN 02/10/21 [History] triamterene-hydrochlorothiazid [Maxzide-25mg] 37.5 tab PO DAILY 02/10/21 [History] - Review of Systems Constitutional: Weakness Eyes: No Symptoms Reported ENT: No Symptoms Reported Respiratory: Shortness of Breath, SOB with Excertion Cardiovascular: Edema Gastrointestinal: Abdominal Pain, Constipation Genitourinary: No Symptoms Reported Musculoskeletal: Back Pain, Leg Pain Skin: No Symptoms Reported Neurological: Other (DIZZINESS) - Physical Exam Vital Signs: Temperature 98.0 F Pulse Rate [Left] 89 Pulse Rate 99 Respiratory Rate 20 Blood Pressure [Left Arm] 133/60 Blood Pressure 105/61 O2 Sat by Pulse Oximetry 99 Oriented: Time, Person Eyes: Normal Ear: Normal Nose: Normal Throat: Dry Respiratory: RLL Diminished, LLL Diminished Cardiovascular: Normal, Edema : Normal Auscultation: Bowel Sounds: Normal Palpation: Other (DIFFUSE DISTENTION) Tenderness: Normal Skin: Decreased Turgur Musculoskeletal: Back:Thoracic, Back:Lumbar Psychiatric: Anxiety Affect: Anxious Speech Pattern: Clear, Appropriate - Assessment/Plan (1) Hyponatremia Status: Acute Plan: ADMIT, GENTLE IV HYDRATION, STRICT I&OS. CT ABD OBTAINED IN ER, COVID -. REVIEW HOME MEDICATION, AM LABS. CARDIAC MONITORING, PRN SUPPLEMENTAL O2 (2) Acute renal insufficiency Status: Acute (3) Edema, peripheral Status: Acute (4) History of cardiac arrhythmia Status: Chronic (5) GERD (gastroesophageal reflux disease) Qualifiers: Esophagitis presence: esophagitis presence not specified Qualified Code(s): K21.9 - Gastro-esophageal reflux disease without esophagitis Status: Chronic (6) Hypertension Qualifiers: Hypertension type: essential hypertension Status: Chronic (7) History of DVT (deep vein thrombosis) Status: Chronic - Allergies Allergies/Adverse Reactions: Allergies Allergy/AdvReac Type Severity Reaction Status Date / Time No Known Drug Allergies Allergy Verified 05/08/17 17:27
[2021-02-11 10:24] LABS: FREE T4 (FREE THYROXINE) 1.29 ng/dL (0.76-1.46); TSH (3RD GENERATION) 0.668 uIU/mL (0.358-3.74)
[2021-02-11 10:55] LABS: ABG ALLEN TEST POS; ABG HCO3 29.7 mmol/L (22-26)
[2021-02-11] MEDS: METHADONE HCL PO PRN ×2 (12:04→19:25)
[2021-02-11] MEDS: TOPROL XL PO SCH (12:05)
[2021-02-11] MEDS: ZANAFLEX PO PRN ×2 (12:05→20:00)
[2021-02-11] MEDS: XARELTO PO SCH (12:05)
[2021-02-11] MEDS: NEURONTIN TAB 600 MG PO PRN ×2 (12:06→19:25)
[2021-02-11] MEDS ORDERED: MIRALAX POWDER (1 DOSE 17 G) PO SCH (21:00)
[2021-02-12] MEDS: NS 1000 ML 1,000 ML IV SCH ×3 (01:19→16:33)
[2021-02-12] MEDS: METHADONE HCL PO PRN ×3 (01:26→14:36)
[2021-02-12] MEDS: NEURONTIN TAB 600 MG PO PRN ×3 (01:26→14:36)
[2021-02-12 06:21] LABS: BASOPHILS % (AUTO) 0.3 % (0.2-1.0); EOSINOPHILS # (AUTO) 0.4 x10^3/uL (0.0-0.2); EOSINOPHILS % (AUTO) 4.9 % (0.9-2.9); HEMATOCRIT 35.3 % (42.0-54.0); HEMOGLOBIN 11.6 g/dL (13.5-18.0); LYMPHOCYTES # (AUTO) 0.9 X10^3/uL (1.3-2.9); LYMPHOCYTES % (AUTO) 10.9 % (21.0-51.0); MEAN CORPUSCULAR HEMOGLOBIN 30.7 pg (27.0-34.0); MEAN CORPUSCULAR HGB CONC 32.9 g/dL (33.0-35.0); MEAN CORPUSCULAR VOLUME 93.5 fL (80.0-100.0); MEAN PLATELET VOLUME 7.7 fL (7.4-11.0); MONOCYTES % (AUTO) 11.8 % (0.0-13.0); NEUTROPHILS # (AUTO) 5.9 x10^3/uL (2.2-4.8); NEUTROPHILS % (AUTO) 72.1 % (42.0-75.0); PLATELET COUNT 245 X10^3/uL (150.0-450.0); RED BLOOD COUNT 3.78 X10^6/uL (4.7-6.0); RED CELL DISTRIBUTION WIDTH 18.8 % (11.6-16.5); WHITE BLOOD COUNT 8.2 X10^3/uL (3.6-10.0)
[2021-02-12 06:42] LABS: ALANINE AMINOTRANSFERASE 89 Units/L (12-78); ALBUMIN 2.7 g/dL (3.4-5.0); ALKALINE PHOSPHATASE 117 Units/L (46-116); ASPARTATE AMINO TRANSFERASE 45 Units/L (15-37); BLOOD UREA NITROGEN 9 mg/dL (7-18); CARBON DIOXIDE 29.3 mmol/L (21-32); CHLORIDE 99 mmol/L (98-107); CHOL/HDL RATIO 6.7 (0.0-5.0); CHOLESTEROL 220 mg/dL (0-200); CREATININE 0.91 mg/dL (0.70-1.30); HDL CHOLESTEROL 33 mg/dL (40-60); SODIUM 135 mmol/L (136-145); TOTAL PROTEIN 7.1 g/dL (6.4-8.2); TRIGLYCERIDES 132 mg/dL (0-150); eGFR NON BLACK RACES > 60 (>60)
[2021-02-12] MEDS: ZANAFLEX PO PRN (08:39)
[2021-02-12] MEDS: XARELTO PO SCH (08:39)
[2021-02-12] MEDS: TOPROL XL PO SCH (08:39)
[2021-02-12] MEDS ORDERED: FERROUS GLUCONATE PO SCH (09:00)
[2021-02-12] MEDS ORDERED: HYZAAR 50/12.5 MG PO SCH (09:00)
[2021-02-12] MEDS ORDERED: LINZESS PO SCH (09:00)
[2021-02-12] MEDS: PROVENTIL NEB TX 0.083% 2.5MG/ 3ML NEB SCH (09:07)
[2021-02-12] MEDS: PULMICORT NEB TX 0.5 MG NEB SCH (09:07)
--- NOTE | 2021-02-12 09:11 | PCM.PROG ---
Progress Note Progress Note for Day of Date of Exam: 02/12/21 Subjective Subjective: Patient seen at bedside, no events overnight. Patient is alert and awake. He is admitted for dehydration, hyponatremia and near syncope. Patient states he feels better. Denies N/V/D or abdominal pain. Labs: Hgb 11.6, Na 135 BUN/Cr: 9/0.91 Total Chol: [address]: no acute trauma, fatty liver noted Plan: continue gentle hydration, echo ordered. Will also order Carotid U/S due to syncopal episode. Continue home medications. PT/OT as tolerated. Patient did wear 2L NC at night as his CPAP was not working. Will consult RT to assess. Monitor AM labs. Past Medical Family Social History Past Med/Fam/Surg Hx: No changes since H&P Allergies: Allergies No Known Drug Allergies Allergy (Verified 05/08/17 17:27) Review of Systems ROS: No change since H&P Vital Signs and I&O's Vital Signs: Temperature 97.6 F Pulse Rate [Left] 90 Pulse Rate 94 Respiratory Rate 21 Blood Pressure [Left Arm] 150/80 Blood Pressure 105/61 O2 Sat by Pulse Oximetry 94 Intake and Output: Intake & Output 02/09/21 02/10/21 02/11/21 02/12/21 23:59 23:59 23:59 23:59 Intake Total 1460 / 1460 7078 / 7078 1042 / 1042 Output Total 700 / 700 4620 / 4620 1500 / 1500 Balance 760 / 760 2458 / 2458 -458 / -458 Physical Exam Oriented: Normal Eyes: Normal Ear: Normal Nose: Normal Throat: Normal Respiratory: Normal Cardiovascular: Normal and Edema Auscultation: Bowel Sounds: Normal Tenderness: Normal Skin: Normal Musculoskeletal: Back:Thoracic and Back:Lumbar Psychiatric: Anxiety Affect: Normal Speech Pattern: Clear and Appropriate Laboratory and Diagnostics Result Diagrams: 02/12/21 05:23 02/12/21 05:23 Labs: Laboratory WBC 8.2 X10^3/uL (3.6-10.0) 02/12/21 05:23 RBC 3.78 X10^6/uL (4.7-6.0) L 02/12/21 05:23 Hgb 11.6 g/dL (13.5-18.0) L 02/12/21 05:23 Hct 35.3 % (42.0-54.0) L 02/12/21 05:23 MCV 93.5 fL (80.0-100.0) 02/12/21 05:23 MCH 30.7 pg (27.0-34.0) 02/12/21 05:23 MCHC 32.9 g/dL (33.0-35.0) L 02/12/21 05:23 RDW 18.8 % (11.6-16.5) H 02/12/21 05:23 Plt Count 245 X10^3/uL (150.0-450.0) 02/12/21 05:23 MPV 7.7 fL (7.4-11.0) 02/12/21 05:23 Neut % (Auto) 72.1 % (42.0-75.0) 02/12/21 05:23 Lymph % (Auto) 10.9 % (21.0-51.0) L 02/12/21 05:23 [place] % (Auto) 11.8 % (0.0-13.0) 02/12/21 05:23 Eos % (Auto) 4.9 % (0.9-2.9) H 02/12/21 05:23 Baso % (Auto) 0.3 % (0.2-1.0) 02/12/21 05:23 Neut # (Auto) 5.9 x10^3/uL (2.2-4.8) H 02/12/21 05:23 Lymph # (Auto) 0.9 X10^3/uL (1.3-2.9) L 02/12/21 05:23 [place] # (Auto) 1.0 x10^3/uL (0.3-0.8) H 02/12/21 05:23 Eos # (Auto) 0.4 x10^3/uL (0.0-0.2) H 02/12/21 05:23 Baso # (Auto) 0.0 X10^3/uL (0.0-0.1) 02/12/21 05:23 Absolute Nucleated RBC 1.4 /100WBC 02/12/21 05:23 Sample Site Lr 02/11/21 10:50 ABG pH 7.400 (7.35-7.45) 02/11/21 10:50 ABG pCO2 48.0 mmHg (35.0-45.0) H 02/11/21 10:50 ABG pO2 66.0 mmHg (80.0-100.0) L 02/11/21 10:50 ABG HCO3 29.7 mmol/L (22-26) H 02/11/21 10:50 ABG O2 Saturation 93.0 % (90-100) 02/11/21 10:50 ABG Base Excess 4.0 mmol/L (-2.0-2.0) H 02/11/21 10:50 Erick Test Pos 02/11/21 10:50 A-a Gradient 74.0 mmHg 02/11/21 10:50 FiO2 28.0 02/11/21 10:50 Blood Gas Comments Pt doretha well cdn 02/11/21 10:50 Sodium 135 mmol/L (136-145) L 02/12/21 05:23 Corrected Sodium TNP 02/12/21 05:23 Potassium 4.0 mmol/L (3.5-5.1) 02/12/21 05:23 Chloride 99 mmol/L (98-107) 02/12/21 05:23 Carbon Dioxide 29.3 mmol/L (21-32) 02/12/21 05:23 BUN 9 mg/dL (7-18) 02/12/21 05:23 Creatinine 0.91 mg/dL (0.70-1.30) 02/12/21 05:23 Est GFR (MDRD) Af Amer > 60 (>60) 02/12/21 05:23 Est GFR (MDRD) Non-Af > 60 (>60) 02/12/21 05:23 Glucose 103 mg/dL (65-99) H 02/12/21 05:23 Calcium 9.0 mg/dL (8.5-10.1) 02/12/21 05:23 Corrected Calcium 10.0 mg/dL (8.5-10.1) 02/12/21 05:23 Iron 34 ug/dL (50-175) L 02/11/21 05:15 Transferrin 226 mg/dL (202-364) 02/11/21 05:15 Ferritin 404 ng/mL (26-388) H 02/11/21 05:15 Total Bilirubin 0.40 mg/dL (0.2-1.0) 02/12/21 05:23 AST 45 Units/L (15-37) H 02/12/21 05:23 ALT 89 Units/L (12-78) H 02/12/21 05:23 Alkaline Phosphatase 117 Units/L (46-116) H 02/12/21 05:23 Total Protein 7.1 g/dL (6.4-8.2) 02/12/21 05:23 Albumin 2.7 g/dL (3.4-5.0) L 02/12/21 05:23 Globulin 4.4 g/dL (2.5-4.5) 02/12/21 05:23 Albumin/Globulin Ratio 0.6 Ratio (1.1-2.1) L 02/12/21 05:23 Triglycerides 132 mg/dL (0-150) 02/12/21 05:23 Cholesterol 220 mg/dL (0-200) H 02/12/21 05:23 LDL Cholesterol, Calc 161 mg/dL (0-100) H 02/12/21 05:23 HDL Cholesterol 33 mg/dL (40-60) L 02/12/21 05:23 Cholesterol/HDL Ratio 6.7 (0.0-5.0) H 02/12/21 05:23 Total PSA 0.50 ng/mL (0.13-4.0) 02/12/21 05:23 Vitamin B12 1316 pg/mL (193-986) H 02/11/21 05:15 Folate 6.8 ng/mL (>8.6) L 02/11/21 05:15 Free T4 1.29 ng/dL (0.76-1.46) 02/11/21 05:15 TSH 3rd Generation 0.668 uIU/mL (0.358-3.74) 02/11/21 05:15 SARS CoV-2 RNA Rapid SILVA Negative (NEGATIVE) 02/10/21 15:04 Plan (1) Near syncope: Status: Acute (2) Fall: Status: Acute Qualifiers: Encounter type: initial encounter Qualified Code(s): W19.XXXA - Unspecified fall, initial encounter (3) Anemia: Status: Acute Qualifiers: Anemia type: unspecified type Qualified Code(s): D64.9 - Anemia, unspecified (4) Hyponatremia: Status: Acute (5) Acute renal insufficiency: Status: Acute (6) Edema, peripheral: Status: Acute (7) History of cardiac arrhythmia: Status: Chronic (8) GERD (gastroesophageal reflux disease): Status: Chronic Qualifiers: Esophagitis presence: esophagitis presence not specified Qualified Code(s): K21.9 - Gastro-esophageal reflux disease without esophagitis (9) Hypertension: Status: Chronic Qualifiers: Hypertension goal: less than 140/90 Hypertension type: essential hypertension Qualified Code(s): I10 - Essential (primary) hypertension (10) History of DVT (deep vein thrombosis): Status: Chronic (11) Fatty liver: Status: Acute
--- NOTE | 2021-02-12 13:09 | VAS ---
HISTORY: Concern for carotid artery stenosis. Syncope.EXAM: BILATERAL DOPPLER CAROTID ULTRASOUND EXAMTechnique: Multiple powers scale and color flow Doppler images of the right and left carotid arterial system were obtained. The vertebral arterial system was evaluated as well.Findings:Nonocclusive color flow Doppler is seen throughout the right and left carotid arterial system. There elevated velocities seen in the left CCA in the 50-69 percent stenosis range based on velocity criteria. No other hemodynamically significant carotid arterial stenosis is seen based on velocity criteria. There is mild bilateral carotid atherosclerosis and soft atherosclerotic plaque formation of the bilateral carotid bulbs and ICAs with associated intimal thickening but without evidence for high-grade stenosis (>70%) or occlusion of the carotid arteries. The right and left vertebral artery demonstrate antegrade flow.IMPRESSION:Elevated velocities in the left CCA in the 50-69% stenosis range.Mild bilateral carotid atherosclerosis and soft atherosclerotic plaque formation of the bilateral carotid bulbs and in both ICAs with [id number] associated carotid intimal thickening but without evidence for any additional high-grade stenosis or occlusion of the carotid arteries, based on Doppler velocity criteria. Appropriate, antegrade, vertebral arterial flow.Peak right ICA velocity: 98 centimeter/seconds.Peak right CCA velocity: 82 centimeter/seconds.Peak left ICA velocity: 84 centimeter/seconds.Peak left CCA velocity: 128 centimeter/seconds.Right ICA to CCA ratio: 1.5.Left ICA to CCA ratio: 1.6.Electronically signed by: DINAH HINOJOSA III (Feb 12, 2021 13:06:07)
[2021-02-12 15:47] VITALS: BP 139/77
--- NOTE | 2021-02-13 09:12 | W.DIS.FURT ---
Summary of Discharge Discharge Summary of Date Date of Exam: 02/12/21 Admission Date Date of Admission: 02/11/21 Admission Diagnosis Patient Problems (Updated 02/12/21 @ 09:18 by Caitlin Puga) Hyponatremia (Acute) E87.1 Edema, peripheral (Acute) R60.9 Acute renal insufficiency (Acute) N28.9 Taking multiple drugs for chronic disease (Acute) R69 Dehydration (Acute) E86.0 Acute hyponatremia (Acute) E87.1 Acute on chronic renal failure (Acute) N17.9, N18.9 Tachycardia (Acute) R00.0 History of cardiac arrhythmia (Chronic) Z86.79 GERD (gastroesophageal reflux disease) (Chronic) K21.9 Hypertension (Chronic) I10 History of DVT (deep vein thrombosis) (Chronic) Z86.718 Hospital Course: Mr. Snyder is a 55y/o male with a H chronic pain syndrome with opioid use, anxiety and HTN presented with dizzines, unsteady gait and weakness. Patient states due to worsening leg swelling, he has been taking lasix 80 mg BID for the past 2 weeks. As he was ambulating to the bathroom, he became very dizzy and had a fall and was brought to the ER. He was noted to have low sodium 130 and increased Cr 1.62. CTAP was done due to patient complaining of abdominal pain which was negative for acute process, did show fatty liver. Patient was started on IV hydration. Labs were monitored daily. Carotid U/S was done which showed Mild bilateral carotid atherosclerosis and soft atherosclerotic plaque formation of the bilateral carotid bulbs and in both ICAs with [id number] associated carotid intimal thickening but without evidence for any additional high-grade stenosis or occlusion of the carotid arteries. ECHO showed EF 54%. Patient's dizziness resolved and he was able to ambulate in the room. His renal function normalized along with sodium. Patient was advised to stop lasix until seen by PCP. He was stable for discharge. He will follow up with PCP as scheduled. Vital Signs: Vital Signs (72 hours) 02/10/21 10:59 02/10/21 12:00 02/10/21 13:00 Temperature 101.8 F H 98.6 F Pulse Rate 130 H 121 H 111 H Pulse Rate [Left] Respiratory Rate 20 22 20 Blood Pressure 141/70 110/58 107/58 Blood Pressure [Left Arm] O2 Sat by Pulse Oximetry 91 L 97 96 02/10/21 14:00 02/10/21 16:00 02/10/21 16:15 Temperature 98.4 F Pulse Rate 105 H Pulse Rate [Left] Respiratory Rate 22 22 22 Blood Pressure 105/61 Blood Pressure [Left Arm] 131/58 102/57 O2 Sat by Pulse Oximetry 95 95 96 02/10/21 20:00 02/11/21 00:00 02/11/21 04:00 Temperature 98.9 F 99.1 F 99.1 F Pulse Rate Pulse Rate [Left] 101 H 101 H 101 H Respiratory Rate 18 20 20 Blood Pressure Blood Pressure [Left Arm] 86/49 115/64 132/65 O2 Sat by Pulse Oximetry 97 94 L 92 L 02/11/21 08:00 02/11/21 08:13 02/11/21 12:00 Temperature 98.0 F 97.3 F L Pulse Rate 99 H Pulse Rate [Left] 89 97 H Respiratory Rate 20 20 Blood Pressure Blood Pressure [Left Arm] 133/60 146/77 O2 Sat by Pulse Oximetry 92 L 99 97 02/11/21 12:04 02/11/21 13:04 02/11/21 16:00 Temperature 97.2 F L Pulse Rate Pulse Rate [Left] 71 Respiratory Rate 18 20 21 Blood Pressure Blood Pressure [Left Arm] 134/72 O2 Sat by Pulse Oximetry 98 02/11/21 19:25 02/11/21 20:00 02/11/21 20:25 Temperature 98.4 F Pulse Rate Pulse Rate [Left] 76 Respiratory Rate 18 20 18 Blood Pressure Blood Pressure [Left Arm] 134/83 O2 Sat by Pulse Oximetry 98 02/11/21 21:26 02/12/21 00:00 02/12/21 01:26 Temperature 97.9 F Pulse Rate 94 H Pulse Rate [Left] 83 Respiratory Rate 20 18 Blood Pressure Blood Pressure [Left Arm] 130/57 O2 Sat by Pulse Oximetry 97 94 L 02/12/21 02:26 02/12/21 04:00 02/12/21 07:40 Temperature 99.1 F Pulse Rate Pulse Rate [Left] 80 Respiratory Rate 18 20 20 Blood Pressure Blood Pressure [Left Arm] 118/77 O2 Sat by Pulse Oximetry 97 02/12/21 07:50 02/12/21 08:40 02/12/21 09:07 Temperature 97.6 F Pulse Rate 89 Pulse Rate [Left] 90 Respiratory Rate 18 21 Blood Pressure Blood Pressure [Left Arm] 150/80 O2 Sat by Pulse Oximetry 94 L 96 02/12/21 10:45 02/12/21 12:00 02/12/21 14:36 Temperature 98.2 F Pulse Rate 89 Pulse Rate [Left] 97 H Respiratory Rate 20 22 Blood Pressure 105/61 Blood Pressure [Left Arm] 130/80 O2 Sat by Pulse Oximetry 96 98 02/12/21 15:36 02/12/21 15:47 Temperature 98.4 F Pulse Rate Pulse Rate [Left] 83 Respiratory Rate 20 20 Blood Pressure Blood Pressure [Left Arm] 139/77 O2 Sat by Pulse Oximetry 97 Labs: Laboratory Last Values WBC 8.2 X10^3/uL (3.6-10.0) 02/12/21 05:23 RBC 3.78 X10^6/uL (4.7-6.0) L 02/12/21 05:23 Hgb 11.6 g/dL (13.5-18.0) L 02/12/21 05:23 Hct 35.3 % (42.0-54.0) L 02/12/21 05:23 MCV 93.5 fL (80.0-100.0) 02/12/21 05:23 MCH 30.7 pg (27.0-34.0) 02/12/21 05:23 MCHC 32.9 g/dL (33.0-35.0) L 02/12/21 05:23 RDW 18.8 % (11.6-16.5) H 02/12/21 05:23 Plt Count 245 X10^3/uL (150.0-450.0) 02/12/21 05:23 MPV 7.7 fL (7.4-11.0) 02/12/21 05:23 Neut % (Auto) 72.1 % (42.0-75.0) 02/12/21 05:23 Lymph % (Auto) 10.9 % (21.0-51.0) L 02/12/21 05:23 [place] % (Auto) 11.8 % (0.0-13.0) 02/12/21 05:23 Eos % (Auto) 4.9 % (0.9-2.9) H 02/12/21 05:23 Baso % (Auto) 0.3 % (0.2-1.0) 02/12/21 05:23 Neut # (Auto) 5.9 x10^3/uL (2.2-4.8) H 02/12/21 05:23 Lymph # (Auto) 0.9 X10^3/uL (1.3-2.9) L 02/12/21 05:23 [place] # (Auto) 1.0 x10^3/uL (0.3-0.8) H 02/12/21 05:23 Eos # (Auto) 0.4 x10^3/uL (0.0-0.2) H 02/12/21 05:23 Baso # (Auto) 0.0 X10^3/uL (0.0-0.1) 02/12/21 05:23 Absolute Nucleated RBC 1.4 /100WBC 02/12/21 05:23 Sample Site Lr 02/11/21 10:50 ABG pH 7.400 (7.35-7.45) 02/11/21 10:50 ABG pCO2 48.0 mmHg (35.0-45.0) H 02/11/21 10:50 ABG pO2 66.0 mmHg (80.0-100.0) L 02/11/21 10:50 ABG HCO3 29.7 mmol/L (22-26) H 02/11/21 10:50 ABG O2 Saturation 93.0 % (90-100) 02/11/21 10:50 ABG Base Excess 4.0 mmol/L (-2.0-2.0) H 02/11/21 10:50 Erick Test Pos 02/11/21 10:50 A-a Gradient 74.0 mmHg 02/11/21 10:50 FiO2 28.0 02/11/21 10:50 Blood Gas Comments Pt doretha well cdn 02/11/21 10:50 Sodium 135 mmol/L (136-145) L 02/12/21 05:23 Corrected Sodium TNP 02/12/21 05:23 Potassium 4.0 mmol/L (3.5-5.1) 02/12/21 05:23 Chloride 99 mmol/L (98-107) 02/12/21 05:23 Carbon Dioxide 29.3 mmol/L (21-32) 02/12/21 05:23 BUN 9 mg/dL (7-18) 02/12/21 05:23 Creatinine 0.91 mg/dL (0.70-1.30) 02/12/21 05:23 Est GFR (MDRD) Af Amer > 60 (>60) 02/12/21 05:23 Est GFR (MDRD) Non-Af > 60 (>60) 02/12/21 05:23 Glucose 103 mg/dL (65-99) H 02/12/21 05:23 Calcium 9.0 mg/dL (8.5-10.1) 02/12/21 05:23 Corrected Calcium 10.0 mg/dL (8.5-10.1) 02/12/21 05:23 Iron 34 ug/dL (50-175) L 02/11/21 05:15 Transferrin 226 mg/dL (202-364) 02/11/21 05:15 Ferritin 404 ng/mL (26-388) H 02/11/21 05:15 Total Bilirubin 0.40 mg/dL (0.2-1.0) 02/12/21 05:23 AST 45 Units/L (15-37) H 02/12/21 05:23 ALT 89 Units/L (12-78) H 02/12/21 05:23 Alkaline Phosphatase 117 Units/L (46-116) H 02/12/21 05:23 Total Protein 7.1 g/dL (6.4-8.2) 02/12/21 05:23 Albumin 2.7 g/dL (3.4-5.0) L 02/12/21 05:23 Globulin 4.4 g/dL (2.5-4.5) 02/12/21 05:23 Albumin/Globulin Ratio 0.6 Ratio (1.1-2.1) L 02/12/21 05:23 Triglycerides 132 mg/dL (0-150) 02/12/21 05:23 Cholesterol 220 mg/dL (0-200) H 02/12/21 05:23 LDL Cholesterol, Calc 161 mg/dL (0-100) H 02/12/21 05:23 HDL Cholesterol 33 mg/dL (40-60) L 02/12/21 05:23 Cholesterol/HDL Ratio 6.7 (0.0-5.0) H 02/12/21 05:23 Total PSA 0.50 ng/mL (0.13-4.0) 02/12/21 05:23 Vitamin B12 1316 pg/mL (193-986) H 02/11/21 05:15 Folate 6.8 ng/mL (>8.6) L 02/11/21 05:15 Free T4 1.29 ng/dL (0.76-1.46) 02/11/21 05:15 TSH 3rd Generation 0.668 uIU/mL (0.358-3.74) 02/11/21 05:15 Stool Description 150 g formed brn sto 02/12/21 09:59 Stl Occult Blood (IFOB) Negative (NEGATIVE) 02/12/21 09:59 SARS CoV-2 RNA Rapid SILVA Negative (NEGATIVE) 02/10/21 15:04 Reason For Visit: DEHYDRATION, ARF, HYPONATREMIA, ABN LIVER ENZYMERS Discharge Date Discharge Date: 02/12/21 Discharge Diagnosis All Active Problems (Updated 02/12/21 @ 09:18 by Caitlin Puga) Fatty liver (Acute) Near syncope (Acute) Fall (Acute) Hyponatremia (Acute) Urinary tract infection (Acute) Abdominal pain (Acute) SBO (small bowel obstruction) (Acute) Nausea and vomiting (Acute) Edema, peripheral (Acute) Pneumonia due to COVID-19 virus (Acute) Acute renal insufficiency (Acute) Taking multiple drugs for chronic disease (Acute) Dehydration (Acute) Acute hyponatremia (Acute) Acute on chronic renal failure (Acute) Tachycardia (Acute) Weakness (Acute) Anemia (Acute) Fibromyalgia (Chronic) Degenerative disc disease (Chronic) Arthritis (Chronic) History of cardiac arrhythmia (Chronic) GERD (gastroesophageal reflux disease) (Chronic) History of migraine headaches (Chronic) Anxiety (Chronic) Hypertension (Chronic) Renal failure (Acute) Metabolic acidosis (Acute) Dehydration (Acute) Acute renal failure (ARF) (Acute) Hallucinations (Acute) Acute renal tubular necrosis (Acute) Generalized weakness (Acute) Dehydration, severe (Acute) History of DVT (deep vein thrombosis) (Chronic) History of pulmonary embolism (Chronic) Right-sided heart failure (Chronic) Plan of Treatment: Continue with present treatment and follow up plan. Pt is to keep follow up a ppointment as instructed and take medications as ordered. Discharge Medications Discharge Medications: No Known Drug Allergies Allergy (Verified 05/08/17 17:27) CONTINUE taking the following medications Linzess 290 mcg PO DAILY 02/10/21 [History] Xarelto 15 mg PO DAILY 02/10/21 [History] acetaminophen-codeine 1 tab PO QID PRN 02/10/21 [History] alprazolam [Xanax] 0.5 mg PO BID 02/10/21 [History] cetirizine 10 mg PO DAILY 02/10/21 [History] famotidine 40 mg PO BID 02/10/21 [History] ferrous sulfate 325 mg PO DAILY 02/10/21 [History] fluticasone propionate 1 mcg INTRANASAL DAILY 02/10/21 [History] gabapentin 600 mg PO QID PRN 02/10/21 [History] losartan-hydrochlorothiazide [Hyzaar] 1 tab PO DAILY 02/10/21 [History] magnesium 250 mg PO DAILY 02/10/21 [History] meloxicam 15 mg PO DAILY 02/10/21 [History] methadone 10 mg PO QID PRN 02/10/21 [History] metoclopramide HCl [Reglan] 10 mg PO QID PRN 02/10/21 [History] metoprolol succinate 50 mg PO DAILY 02/10/21 [History] omeprazole 20 mg PO BID 02/10/21 [History] tizanidine 4 mg PO BID PRN 02/10/21 [History] tramadol 50 mg PO QID PRN 02/10/21 [History] Follow up and Referral Follow Up: 1 Week (PCP) Discharge Disposition Discharge Disposition: Home Discharge Condition: Stable Discharge Plan Discharge Plan Hospital Course: Mr. Snyder is a 55y/o male with a H chronic pain syndrome with opioid use, anxiety and HTN presented with dizzines, unsteady gait and weakness. Patient states due to worsening leg swelling, he has been taking lasix 80 mg BID for the past 2 weeks. As he was ambulating to the bathroom, he became very dizzy and had a fall and was brought to the ER. He was noted to have low sodium 130 and increased Cr 1.62. CTAP was done due to patient complaining of abdominal pain which was negative for acute process, did show fatty liver. Patient was started on IV hydration. Labs were monitored daily. Carotid U/S was done which showed Mild bilateral carotid atherosclerosis and soft atherosclerotic plaque formation of the bilateral carotid bulbs and in both ICAs with [id number] associated carotid intimal thickening but without evidence for any additional high-grade stenosis or occlusion of the carotid arteries. ECHO showed EF 54%. Patient's dizziness resolved and he was able to ambulate in the room. His renal function normalized along with sodium. Patient was advised to stop lasix until seen by PCP. He was stable for discharge. He will follow up with PCP as scheduled. Patient Disposition: 01 HOME, SELF-CARE Condition: Stable Health Concerns: Post Hospitalization: new medications and changes needed to prevent readmission or further decline. Pt educated and given instructions on all concerns. Care Plan Goals: Problem: Pain/Alteration in Comfort Goal: Improve/ Resolve Pain; Achieve Pain Tolerance Instructions: Take pain medications as prescribed. Contact your primary care provider if your pain is unrelieved or worsens. Follow up with primary care provider as directed. Plan of Treatment: Continue with present treatment and follow up plan. Pt is to keep follow up appointment as instructed and take medications as ordered. Prescription drug monitoring program results: PDMP was not reviewed Prescriptions: Continued gabapentin 600 mg tablet 600 mg PO QID PRNRF: 0 cetirizine 10 mg Tablet 10 mg PO DAILY RF: 0 tizanidine 4 mg tablet 4 mg PO BID PRNRF: 0 metoprolol succinate 50 mg tablet extended release 24 hr 50 mg PO DAILY RF: 0 methadone 10 mg Tablet 10 mg PO QID PRNRF: 0 meloxicam 15 mg Tablet 15 mg PO DAILY RF: 0 famotidine 40 mg tablet 40 mg PO BID RF: 0 losartan-hydrochlorothiazide [Hyzaar] 100-25 mg tablet 1 tab PO DAILY RF: 0 alprazolam [Xanax] 0.5 mg Tablet 0.5 mg PO BID RF: 0 omeprazole 20 mg Capsule,Delayed Release(Dr/Ec) 20 mg PO BID RF: 0 acetaminophen-codeine 300-60 mg tablet 1 tab PO QID PRNRF: 0 magnesium 250 mg Tablet 250 mg PO DAILY RF: 0 ferrous sulfate 325 mg (65 mg iron) Tablet,Delayed Release (Dr/Ec) 325 mg PO DAILY RF: 0 metoclopramide HCl [Reglan] 10 mg Tablet 10 mg PO QID PRNRF: 0 Xarelto 15 mg Tablet 15 mg PO DAILY RF: 0 Linzess 290 mcg Capsule 290 mcg PO DAILY RF: 0 tramadol 100 mg tablet 50 mg PO QID PRNRF: 0 fluticasone propionate 50 mcg/actuation [place],Suspension 1 mcg INTRANASAL DAILY RF: 0 Discontinued potassium 99 mg Tablet 99 mg PO DAILY RF: 0 furosemide 80 mg tablet 80 mg PO BID RF: 0 triamterene-hydrochlorothiazid [Maxzide-25mg] 37.5-25 mg tablet 37.5 tab PO DAILY RF: 0 Orders to Discharge Patient Discharge Orders: Discharge (Routine); Ordered 02/12/21 Ordered By: Caitlin Puga Follow ups/Referrals Follow ups/Referrals: Devan Viveros [Primary Care Provider] - 02/19/21 2:10 pm Instructions Instructions: Acute Kidney Injury, Adult, Chronic Kidney Disease, Adult, [id number], Hypertension, Hkbs-zu-Ersn, Heart Failure, Ucpa-me-Cqrq, Fall Prevention in Hospitals, Adult, Syncope, Ktjg-xd-Nhac Activity Restrictions/Additional Instructions: Stop taking furosemide (Lasix) until seen by primary care provider. Follow up with primary care provider in one week Stand Alone Forms: Excuse From Work or School, Precautions for COVID19, Patient Portal, Social Distancing
== END 2021-02-12 17:40 | disposition home or self-care (01) ==
LOC: ER 10:58 → MED/SURG 10:58
PROVIDERS: ADMIT Internal Medicine; ATTEND Internal Medicine
DX: R26.81 Unsteadiness on feet; Z20.822 Contact with and (suspected) exposure to COVID-19; E87.1 Hypo-osmolality and hyponatremia; Z86.718 Personal history of other venous thrombosis and embolism; Z79.899 Other long term (current) drug therapy; K21.9 Gastro-esophageal reflux disease without esophagitis; R06.02 Shortness of breath; E86.0 Dehydration; W18.39XA Other fall on same level, initial encounter; N17.8 Other acute kidney failure; D64.9 Anemia, unspecified; R60.0 Localized edema; R94.5 Abnormal results of liver function studies; I10 Essential (primary) hypertension; Z86.79 Personal history of other diseases of the circulatory system; R42 Dizziness and giddiness; K76.0 Fatty (change of) liver, not elsewhere classified; R55 Syncope and collapse

== ENCOUNTER 2022-06-21 09:35 | Inpatient (IN) ==
[2022-06-21 10:34] LABS: ALANINE AMINOTRANSFERASE 24 Units/L (12-78); ALBUMIN 2.6 g/dL (3.4-5.0); ALKALINE PHOSPHATASE 243 Units/L (46-116); ASPARTATE AMINO TRANSFERASE 44 Units/L (15-37); BLOOD UREA NITROGEN 17 mg/dL (7-18); CARBON DIOXIDE 28.7 mmol/L (21-32); CHLORIDE 97 mmol/L (98-107); COR CA(FOR HYPOALB) 10.1 mg/dL (8.5-10.1); COR NA(FOR HYPERGLY) 132 mmol/L (136-145); CREATININE 1.05 mg/dL (0.70-1.30); SODIUM 131 mmol/L (136-145); TOTAL PROTEIN 8.1 g/dL (6.4-8.2); eGFR NON BLACK RACES > 60 (>60)
[2022-06-21 10:42] LABS: BASOPHILS # (AUTO) 0.1 X10^3/uL (0.0-0.1); BASOPHILS % (AUTO) 0.8 % (0.2-1.0); EOSINOPHILS # (AUTO) 0.3 x10^3/uL (0.0-0.2); EOSINOPHILS % (AUTO) 3.2 % (0.9-2.9); HEMATOCRIT 31.3 % (42.0-54.0); HEMOGLOBIN 10.7 g/dL (13.5-18.0); LYMPHOCYTES % (AUTO) 10.9 % (21.0-51.0); MEAN CORPUSCULAR HEMOGLOBIN 30.8 pg (27.0-34.0); MEAN CORPUSCULAR VOLUME 90.6 fL (80.0-100.0); MEAN PLATELET VOLUME 7.5 fL (7.4-11.0); MONOCYTES # (AUTO) 1.2 x10^3/uL (0.3-0.8); MONOCYTES % (AUTO) 13.6 % (0.0-13.0); NEUTROPHILS # (AUTO) 6.3 x10^3/uL (2.2-4.8); NEUTROPHILS % (AUTO) 71.5 % (42.0-75.0); RED BLOOD COUNT 3.46 X10^6/uL (4.7-6.0); RED CELL DISTRIBUTION WIDTH 15.4 % (11.6-16.5); WHITE BLOOD COUNT 8.8 X10^3/uL (3.6-10.0)
[2022-06-21] MEDS: LEVAQUIN PREMIX IV 500 MG 500 MG/100 ML BAG IV SCH (11:10)
[2022-06-21] MEDS: NS 1,000 ML IV 1,000 ML IV SCH ×2 (11:10→23:07)
[2022-06-21] MEDS: SOLU-Medrol 40 MG VIAL IVP SCH ×3 (11:11→21:00)
--- NOTE | 2022-06-21 11:12 | RAD ---
HISTORYsobSTUDYCHEST x-ray, 1 VIEWCOMPARISONX-ray 11/17/2020FINDINGSProbable COPD. Possible CHF. Appearance of the chest is similar to prior study. Possible small right pleural effusion is developed but this is more likely artifactual appearance. No pneumothorax or focal infiltrate is seen.IMPRESSIONProbable persistent CHF and COPD. New small right pleural effusion is not excluded but this is probably artifactual appearance.Electronically signed by: Edy Rangel (Jun 21, 2022 11:11:14)
[2022-06-21] MEDS: DUONEB 0.5 MG/3 MG (3 mL) NEB SCH ×4 (13:45→20:57)
[2022-06-21] MEDS: PULMICORT NEB TX 0.5 MG NEB SCH ×2 (15:35→20:57)
[2022-06-21] MEDS ORDERED: IMITREX TAB PO PRN (18:14)
[2022-06-21] MEDS: PriLOSEC PO SCH (20:09)
[2022-06-21] MEDS: XANAX PO SCH (20:10)
--- NOTE | 2022-06-21 22:43 | DR.UPDATE ---
H&P Update History and Physical Update: History and Physical reviewed and patient examined. Changes noted: Yes with the following: PATIENT WAS SEEN IN THE OFFICE WITH COMPLAINTS OF INCREASED SHORTNESS OF BREATH AND NON-PRODUCTIVE COUGH X 1 WEEK. HE HAS A HX OF COPD AND CHF. HE WAS ADMITTED TO THE HOSPITAL FOR TX OF COPD EXACERBATION WITH ACUTE BRONCHITIS. ON ADMISSION, WE WILL OBTAIN A CBC, CMP, BLOOD CULTURES, AND CHEST XRAY. WE WILL START NORMAL SALINE AT KVO, LEVAQUIN 500MG IV DAILY, DUONEBS QID, PULMICORT NEBS BID, AND SOLU-MEDROL 40MG IV Q8H. WE WILL RESUME HIS HOME MEDICATIONS. OTHERWISE, WE WILL FOLLOW-UP WITH AM LABS AND CONTINUE TO MONITOR.
[2022-06-22] MEDS: SOLU-Medrol 40 MG VIAL IVP SCH ×3 (05:10→21:28)
[2022-06-22 05:29] LABS: BASOPHILS % (AUTO) 0.2 % (0.2-1.0); HEMATOCRIT 30.8 % (42.0-54.0); HEMOGLOBIN 10.2 g/dL (13.5-18.0); LYMPHOCYTES # (AUTO) 0.6 X10^3/uL (1.3-2.9); LYMPHOCYTES % (AUTO) 7.8 % (21.0-51.0); MEAN CORPUSCULAR HEMOGLOBIN 30.3 pg (27.0-34.0); MEAN CORPUSCULAR HGB CONC 33.1 g/dL (33.0-35.0); MEAN CORPUSCULAR VOLUME 91.5 fL (80.0-100.0); MEAN PLATELET VOLUME 7.9 fL (7.4-11.0); MONOCYTES # (AUTO) 0.4 x10^3/uL (0.3-0.8); MONOCYTES % (AUTO) 5.3 % (0.0-13.0); NEUTROPHILS # (AUTO) 6.6 x10^3/uL (2.2-4.8); NEUTROPHILS % (AUTO) 86.7 % (42.0-75.0); RED BLOOD COUNT 3.37 X10^6/uL (4.7-6.0); RED CELL DISTRIBUTION WIDTH 15.4 % (11.6-16.5); WHITE BLOOD COUNT 7.6 X10^3/uL (3.6-10.0)
[2022-06-22 05:36] LABS: ALANINE AMINOTRANSFERASE 24 Units/L (12-78); ALBUMIN 2.5 g/dL (3.4-5.0); ALKALINE PHOSPHATASE 221 Units/L (46-116); ASPARTATE AMINO TRANSFERASE 30 Units/L (15-37); BLOOD UREA NITROGEN 17 mg/dL (7-18); CARBON DIOXIDE 27.3 mmol/L (21-32); CHLORIDE 97 mmol/L (98-107); COR CA(FOR HYPOALB) 10.2 mg/dL (8.5-10.1); COR NA(FOR HYPERGLY) 135 mmol/L (136-145); CREATININE 1.22 mg/dL (0.70-1.30); SODIUM 130 mmol/L (136-145); TOTAL PROTEIN 7.9 g/dL (6.4-8.2); eGFR NON BLACK RACES > 60 (>60)
--- NOTE | 2022-06-22 06:01 | RAD ---
PROCEDURE: Chest X-ray 1 View .HISTORY: Dyspnea.TECHNIQUE: AP view .COMPARISON: 06/21/2022.TECHNICAL QUALITY: Satisfactory .FINDINGS:Unchanged start size upper limits of normal.Mediastinum and hilar regions show no masses or lymphadenopathy .Normal central vascularity .No pulmonary consolidation, masses, pleural fluid, or pneumothorax .No acute bony abnormality .IMPRESSION:Unchanged start size upper limits of normal with no other evidence of active disease.Electronically signed by: Korey Putnam (Jun 22, 2022 05:59:35)
[2022-06-22] MEDS: LEVAQUIN PREMIX IV 500 MG 500 MG/100 ML BAG IV SCH (08:12)
[2022-06-22] MEDS: FERROUS GLUCONATE PO SCH (08:12)
[2022-06-22] MEDS: LINZESS PO SCH (08:12)
[2022-06-22] MEDS: FLONASE NASAL SPRAY ENOSTRIL SCH (08:12)
[2022-06-22] MEDS: MOBIC TAB 15 MG PO SCH (08:13)
[2022-06-22] MEDS: TOPROL XL PO SCH (08:13)
[2022-06-22] MEDS: XANAX PO SCH ×2 (08:13→21:27)
[2022-06-22] MEDS: PriLOSEC PO SCH ×2 (08:13→21:27)
[2022-06-22] MEDS: ZyrTEC TAB 10 MG PO SCH (08:14)
[2022-06-22] MEDS: XARELTO PO SCH (08:14)
[2022-06-22] MEDS: DUONEB 0.5 MG/3 MG (3 mL) NEB SCH ×4 (08:45→21:00)
[2022-06-22] MEDS: PULMICORT NEB TX 0.5 MG NEB SCH ×2 (08:45→21:00)
[2022-06-22] MEDS: NS 1,000 ML IV 1,000 ML IV SCH (12:03)
[2022-06-22] MEDS: NovoLIN R (or HumuLIN R) SUBCUT PRN ×3 (12:20→21:29)
[2022-06-22] MEDS: SNACK - Diabetic Appropriate PO SCH (20:45)
[2022-06-23 05:15] LABS: BASOPHILS % (AUTO) 0.3 % (0.2-1.0); HEMATOCRIT 30.7 % (42.0-54.0); HEMOGLOBIN 10.2 g/dL (13.5-18.0); LYMPHOCYTES # (AUTO) 0.9 X10^3/uL (1.3-2.9); LYMPHOCYTES % (AUTO) 6.5 % (21.0-51.0); MEAN CORPUSCULAR HEMOGLOBIN 30.3 pg (27.0-34.0); MEAN CORPUSCULAR HGB CONC 33.2 g/dL (33.0-35.0); MEAN CORPUSCULAR VOLUME 91.1 fL (80.0-100.0); MEAN PLATELET VOLUME 7.9 fL (7.4-11.0); MONOCYTES # (AUTO) 1.5 x10^3/uL (0.3-0.8); MONOCYTES % (AUTO) 10.2 % (0.0-13.0); NEUTROPHILS # (AUTO) 11.8 x10^3/uL (2.2-4.8); RED BLOOD COUNT 3.37 X10^6/uL (4.7-6.0); RED CELL DISTRIBUTION WIDTH 15.8 % (11.6-16.5); WHITE BLOOD COUNT 14.2 X10^3/uL (3.6-10.0)
[2022-06-23 05:27] LABS: ALANINE AMINOTRANSFERASE 21 Units/L (12-78); ALBUMIN 2.7 g/dL (3.4-5.0); ALKALINE PHOSPHATASE 202 Units/L (46-116); ASPARTATE AMINO TRANSFERASE 20 Units/L (15-37); BLOOD UREA NITROGEN 22 mg/dL (7-18); CALCIUM 8.9 mg/dL (8.5-10.1); CARBON DIOXIDE 26.8 mmol/L (21-32); CHLORIDE 98 mmol/L (98-107); COR CA(FOR HYPOALB) 9.9 mg/dL (8.5-10.1); COR NA(FOR HYPERGLY) 136 mmol/L (136-145); CREATININE 1.15 mg/dL (0.70-1.30); SODIUM 132 mmol/L (136-145); TOTAL PROTEIN 8.2 g/dL (6.4-8.2); eGFR NON BLACK RACES > 60 (>60)
[2022-06-23] MEDS: NovoLIN R (or HumuLIN R) SUBCUT PRN ×4 (05:45→21:03)
[2022-06-23] MEDS: SOLU-Medrol 40 MG VIAL IVP SCH ×3 (05:45→21:50)
--- NOTE | 2022-06-23 06:04 | RAD ---
Chest AP portableIndication: DyspneaComparison June 22, 2022FINDINGSHeart size is prominent. Monitor leads obscure minimal detail. Increased interstitial markings are noted.IMPRESSIONProminent heart size and mild increased interstitial markings. CHF possible. Underlying pneumonia not excluded. Follow-up to resolution.Electronically signed by: ENRRIQUE JACINTO (Jun 23, 2022 06:02:54)
[2022-06-23] MEDS: NS 1,000 ML IV 1,000 ML IV SCH ×2 (06:48→13:17)
[2022-06-23] MEDS: FLONASE NASAL SPRAY ENOSTRIL SCH (08:14)
[2022-06-23] MEDS: FERROUS GLUCONATE PO SCH (08:14)
[2022-06-23] MEDS: PriLOSEC PO SCH ×2 (08:15→21:04)
[2022-06-23] MEDS: LINZESS PO SCH (08:15)
[2022-06-23] MEDS: LEVAQUIN PREMIX IV 500 MG 500 MG/100 ML BAG IV SCH (08:15)
[2022-06-23] MEDS: MOBIC TAB 15 MG PO SCH (08:15)
[2022-06-23] MEDS: XARELTO PO SCH (08:16)
[2022-06-23] MEDS: XANAX PO SCH ×2 (08:16→21:04)
[2022-06-23] MEDS: ZyrTEC TAB 10 MG PO SCH (08:16)
[2022-06-23] MEDS: TOPROL XL PO SCH (08:16)
[2022-06-23] MEDS: DUONEB 0.5 MG/3 MG (3 mL) NEB SCH ×4 (08:55→20:00)
[2022-06-23] MEDS: PULMICORT NEB TX 0.5 MG NEB SCH ×2 (08:55→20:00)
[2022-06-23 13:03] VITALS: BMI 47.7
[2022-06-23] MEDS ORDERED: K-DUR TAB 20 MEQ PO SCH (14:00)
[2022-06-23] MEDS: LASIX IVP SCH (14:30)
[2022-06-23] MEDS: SNACK - Diabetic Appropriate PO SCH (20:25)
[2022-06-24 05:23] LABS: BASOPHILS % (AUTO) 0.1 % (0.2-1.0); HEMATOCRIT 32.1 % (42.0-54.0); HEMOGLOBIN 10.7 g/dL (13.5-18.0); LYMPHOCYTES % (AUTO) 7.3 % (21.0-51.0); MEAN CORPUSCULAR HEMOGLOBIN 30.6 pg (27.0-34.0); MEAN CORPUSCULAR HGB CONC 33.4 g/dL (33.0-35.0); MEAN CORPUSCULAR VOLUME 91.5 fL (80.0-100.0); MEAN PLATELET VOLUME 7.6 fL (7.4-11.0); MONOCYTES # (AUTO) 1.6 x10^3/uL (0.3-0.8); MONOCYTES % (AUTO) 11.2 % (0.0-13.0); NEUTROPHILS # (AUTO) 11.4 x10^3/uL (2.2-4.8); NEUTROPHILS % (AUTO) 81.4 % (42.0-75.0); RED CELL DISTRIBUTION WIDTH 15.8 % (11.6-16.5); WHITE BLOOD COUNT 14.1 X10^3/uL (3.6-10.0)
[2022-06-24] MEDS: NS 1,000 ML IV 1,000 ML IV SCH ×2 (05:32→15:35)
[2022-06-24] MEDS: SOLU-Medrol 40 MG VIAL IVP SCH ×3 (05:34→21:01)
[2022-06-24] MEDS: NovoLIN R (or HumuLIN R) SUBCUT PRN ×4 (05:35→20:59)
[2022-06-24 05:38] LABS: ALANINE AMINOTRANSFERASE 23 Units/L (12-78); ALBUMIN 2.9 g/dL (3.4-5.0); ALKALINE PHOSPHATASE 199 Units/L (46-116); ASPARTATE AMINO TRANSFERASE 16 Units/L (15-37); BLOOD UREA NITROGEN 22 mg/dL (7-18); CALCIUM 9.4 mg/dL (8.5-10.1); CHLORIDE 97 mmol/L (98-107); COR CA(FOR HYPOALB) 10.3 mg/dL (8.5-10.1); COR NA(FOR HYPERGLY) 137 mmol/L (136-145); SODIUM 132 mmol/L (136-145); TOTAL PROTEIN 8.3 g/dL (6.4-8.2); eGFR NON BLACK RACES > 60 (>60)
--- NOTE | 2022-06-24 08:25 | RAD ---
HISTORYShortness of breathSTUDYChest AP [id number]/14/2022FINDINGSHeart is mildly enlarged. No congestive heart failure is noted. No acute alveolar infiltrates or pleural effusions are identified. Bony thorax is unremarkable.IMPRESSIONMild cardiomegaly without congestive heart failureNo acute infiltratesElectronically signed by: BETTY PORTER (Jun 24, 2022 08:24:18)
[2022-06-24] MEDS: DUONEB 0.5 MG/3 MG (3 mL) NEB SCH ×4 (08:35→21:00)
[2022-06-24] MEDS: PULMICORT NEB TX 0.5 MG NEB SCH ×2 (08:35→21:00)
[2022-06-24] MEDS: LINZESS PO SCH (09:07)
[2022-06-24] MEDS: LASIX IVP SCH (09:07)
[2022-06-24] MEDS: FERROUS GLUCONATE PO SCH (09:07)
[2022-06-24] MEDS: FLONASE NASAL SPRAY ENOSTRIL SCH (09:07)
[2022-06-24] MEDS: LEVAQUIN PREMIX IV 500 MG 500 MG/100 ML BAG IV SCH (09:07)
[2022-06-24] MEDS: PriLOSEC PO SCH ×2 (09:08→21:00)
[2022-06-24] MEDS: MOBIC TAB 15 MG PO SCH (09:08)
[2022-06-24] MEDS: XANAX PO SCH ×2 (09:08→21:01)
[2022-06-24] MEDS: TOPROL XL PO SCH (09:08)
[2022-06-24] MEDS: XARELTO PO SCH (09:09)
[2022-06-24] MEDS: ZyrTEC TAB 10 MG PO SCH (09:09)
[2022-06-24] MEDS: SNACK - Diabetic Appropriate PO SCH (20:15)
--- NOTE | 2022-06-24 23:22 | PCM.PROG ---
Progress Note - Progress Note for Day of Date of Exam: 06/24/22 - Subjective Subjective: IS CURRENTLY INPATIENT STATUS FOR TREATMENT OF COPD WITH ACUTE BRONCHITIS AND CHF. TODAY, HE IS ALERT AND ORIENTED, LYING IN BED ON MORNING ROUNDS. HE CONTINUES WITH COMPLAINTS OF SHORTNESS OF BREATH THIS MORNING. HE DOES ADMIT TO SLIGHT IMPROVEMENT IN SYMPTOMS SINCE ADMISSION. HE IS CURRENTLY UTILIZING OXYGEN VIA NASAL CANNULA AT 2 LPM. ON EXAMINATION, HEART IS REGULAR IN RATE AND RHYTHM. BILATERAL LUNGS ARE NOTED WITH DIMINISHED LUNG SOUNDS THROUGHOUT. ABDOMEN IS ROUND, SOFT, AND NON-TENDER WITH NORMAL BOWEL SOUNDS NOTED IN ALL QUADRANTS. HIS VITALS THIS MORNING ARE: 97.6-90- 27-92%-157/74. LABS WERE OBTAINED. WBC 14.1, RBC 3.50, HGB 10.7, HCT 32.1, SODIUM 132, POTASSIUM 4.6, CHLORIDE 97, BUN 22, CREATININE 1.10, GLUCOSE 304, CALCIUM 9.4, AST 16, ALT 23, ALK PHOS 199, BNP 558, TOTAL PROTEIN 8.3, ALBUMIN 2.9. BLOOD CULTURES ARE PENDING. A CHEST XRAY WAS OBTAINED AND REVEALED: Mild cardiomegaly without congestive heart failure. No acute infiltrates. HE IS CURRENTLY RECEIVING NORMAL SALINE AT KVO, LEVAQUIN 500MG IV DAILY, DUONEBS QID, PULMICORT NEBS BID, LASIX 40MG IV DAILY, HUMULIN R SLIDING SCALE, OTBS ACHS, SOLU-MEDROL 40MG IV Q8H. HIS HOME MEDICATIONS WERE RESUMED. WE WILL CONTINUE WITH CURRENT PLAN OF CARE TODAY. OTHERWISE, WE PLAN TO FOLLOW-UP WITH AM LABS AND XRAY AND CONTINUE TO MONITOR. TIME SPENT ON CLINICAL ASSESSMENT, REVIEWING LABS AND IMAGING, DECISION MAKING, AND DOCUMENTATION GREATER THAN 45 MINUTES. - Past Medical Family Social History Past Med/Fam/Surg Hx: No changes since H&P Allergies: Allergies No Known Drug Allergies Allergy (Verified 05/08/17 17:27) - Review of Systems ROS: No change since H&P - Vital Signs and I&O's Vital Signs: Temperature 98 F Pulse Rate 75 Respiratory Rate 17 Blood Pressure [Left Arm] 139/77 Blood Pressure 159/71 O2 Sat by Pulse Oximetry 99 Intake and Output: Intake & Output 06/22/22 06/23/22 06/24/22 06/25/22 11:59 11:59 11:59 11:59 Intake Total 2311 / 2311 1842 / 1842 1610 / 1610 660 / 660 Output Total 2275 / 2275 2600 / 2600 5500 / 5500 5400 / 5400 Balance 36 / 36 -758 / -758 -3890 / -3890 -4740 / -4740 - Physical Exam Oriented: Normal Eyes: Normal Ear: Normal Nose: Normal Throat: Normal Respiratory: Generalized, Diminished Cardiovascular: Normal : Normal Auscultation: Bowel Sounds: Normal Palpation: Normal Tenderness: Normal Skin: Normal Musculoskeletal: Normal Psychiatric: Normal Mood Description: Calm Affect: Normal Speech Pattern: Clear, Appropriate - Laboratory and Diagnostics Result Diagrams: 06/24/22 04:00 06/24/22 20:55 Labs: 06/21/22 10:12 Blood Blood Culture - Preliminary 06/21/22 10:06 Blood Blood Culture - Preliminary Laboratory WBC 14.1 X10^3/uL (3.6-10.0) H 06/24/22 04:00 RBC 3.50 X10^6/uL (4.7-6.0) L 06/24/22 04:00 Hgb 10.7 g/dL (13.5-18.0) L 06/24/22 04:00 Hct 32.1 % (42.0-54.0) L 06/24/22 04:00 MCV 91.5 fL (80.0-100.0) 06/24/22 04:00 MCH 30.6 pg (27.0-34.0) 06/24/22 04:00 MCHC 33.4 g/dL (33.0-35.0) 06/24/22 04:00 RDW 15.8 % (11.6-16.5) 06/24/22 04:00 Plt Count 338 X10^3/uL (150.0-450.0) 06/24/22 04:00 MPV 7.6 fL (7.4-11.0) 06/24/22 04:00 Neut % (Auto) 81.4 % (42.0-75.0) H 06/24/22 04:00 Lymph % (Auto) 7.3 % (21.0-51.0) L 06/24/22 04:00 [place] % (Auto) 11.2 % (0.0-13.0) 06/24/22 04:00 Eos % (Auto) 0.0 % (0.9-2.9) L 06/24/22 04:00 Baso % (Auto) 0.1 % (0.2-1.0) L 06/24/22 04:00 Neut # (Auto) 11.4 x10^3/uL (2.2-4.8) H 06/24/22 04:00 Lymph # (Auto) 1.0 X10^3/uL (1.3-2.9) L 06/24/22 04:00 [place] # (Auto) 1.6 x10^3/uL (0.3-0.8) H 06/24/22 04:00 Eos # (Auto) 0.0 x10^3/uL (0.0-0.2) 06/24/22 04:00 Baso # (Auto) 0.0 X10^3/uL (0.0-0.1) 06/24/22 04:00 Absolute Nucleated RBC 0.0 /100WBC 06/24/22 04:00 Sodium 132 mmol/L (136-145) L 06/24/22 04:00 Corrected Sodium 137 mmol/L (136-145) 06/24/22 04:00 Potassium 4.6 mmol/L (3.5-5.1) 06/24/22 04:00 Chloride 97 mmol/L (98-107) L 06/24/22 04:00 Carbon Dioxide 27.0 mmol/L (21-32) 06/24/22 04:00 BUN 22 mg/dL (7-18) H 06/24/22 04:00 Creatinine 1.10 mg/dL (0.70-1.30) 06/24/22 04:00 Est GFR (MDRD) Af Amer > 60 (>60) 06/24/22 04:00 Est GFR (MDRD) Non-Af > 60 (>60) 06/24/22 04:00 Glucose 343 mg/dL (65-99) H 06/24/22 20:55 POC Glucose (mg/dL) 307 mg/dL (65-99) H 06/24/22 22:34 Calcium 9.4 mg/dL (8.5-10.1) 06/24/22 04:00 Corrected Calcium 10.3 mg/dL (8.5-10.1) H 06/24/22 04:00 Total Bilirubin 0.70 mg/dL (0.2-1.0) 06/24/22 04:00 AST 16 Units/L (15-37) 06/24/22 04:00 ALT 23 Units/L (12-78) 06/24/22 04:00 Alkaline Phosphatase 199 Units/L (46-116) H 06/24/22 04:00 B-Natriuretic Peptide 558 pg/mL (0-79) H* 06/24/22 04:00 Total Protein 8.3 g/dL (6.4-8.2) H 06/24/22 04:00 Albumin 2.9 g/dL (3.4-5.0) L 06/24/22 04:00 Globulin 5.4 g/dL (2.5-4.5) H 06/24/22 04:00 Albumin/Globulin Ratio 0.5 Ratio (1.1-2.1) L 06/24/22 04:00 SARS-CoV-2 (PCR) Negative (NEGATIVE) 06/21/22 11:40 - Plan (1) COPD exacerbation Status: Acute Plan: NORMAL SALINE AT KVO, LEVAQUIN 500MG IV DAILY, DUONEBS QID, PULMICORT NEBS BID, LASIX 40MG IV DAILY, HUMULIN R SLIDING SCALE, OTBS ACHS, SOLU-MEDROL 40MG IV Q8H. HIS HOME MEDICATIONS WERE RESUMED. (2) Acute bronchitis Status: Acute Qualifiers: Bronchitis organism: unspecified organism Qualified Code(s): J20.9 - Acute bronchitis, unspecified (3) Right-sided heart failure Status: Chronic Qualifiers: Heart failure chronicity: acute on chronic Qualified Code(s): I50.813 - Acute on chronic right heart failure (4) Hyponatremia Status: Acute (5) GERD (gastroesophageal reflux disease) Status: Chronic Qualifiers: Esophagitis presence: esophagitis presence not specified Qualified Code(s): K21.9 - Gastro-esophageal reflux disease without esophagitis (6) Hypertension Status: Chronic Qualifiers: Hypertension type: essential hypertension Qualified Code(s): I10 - Essent ial (primary) hypertension
[2022-06-25 04:07] LABS: BASOPHILS % (AUTO) 0.3 % (0.2-1.0); HEMATOCRIT 35.3 % (42.0-54.0); HEMOGLOBIN 11.8 g/dL (13.5-18.0); LYMPHOCYTES # (AUTO) 1.4 X10^3/uL (1.3-2.9); LYMPHOCYTES % (AUTO) 10.4 % (21.0-51.0); MEAN CORPUSCULAR HEMOGLOBIN 30.2 pg (27.0-34.0); MEAN CORPUSCULAR HGB CONC 33.4 g/dL (33.0-35.0); MEAN CORPUSCULAR VOLUME 90.2 fL (80.0-100.0); MEAN PLATELET VOLUME 7.4 fL (7.4-11.0); MONOCYTES # (AUTO) 2.1 x10^3/uL (0.3-0.8); MONOCYTES % (AUTO) 15.5 % (0.0-13.0); NEUTROPHILS % (AUTO) 73.8 % (42.0-75.0); RED BLOOD COUNT 3.91 X10^6/uL (4.7-6.0); RED CELL DISTRIBUTION WIDTH 15.6 % (11.6-16.5); WHITE BLOOD COUNT 13.6 X10^3/uL (3.6-10.0)
[2022-06-25 04:14] LABS: ALANINE AMINOTRANSFERASE 24 Units/L (12-78); ALKALINE PHOSPHATASE 199 Units/L (46-116); ASPARTATE AMINO TRANSFERASE 16 Units/L (15-37); BLOOD UREA NITROGEN 19 mg/dL (7-18); CALCIUM 9.4 mg/dL (8.5-10.1); CHLORIDE 95 mmol/L (98-107); COR CA(FOR HYPOALB) 10.2 mg/dL (8.5-10.1); COR NA(FOR HYPERGLY) 136 mmol/L (136-145); CREATININE 1.13 mg/dL (0.70-1.30); SODIUM 133 mmol/L (136-145); TOTAL PROTEIN 8.5 g/dL (6.4-8.2); eGFR NON BLACK RACES > 60 (>60)
[2022-06-25] MEDS: NovoLIN R (or HumuLIN R) SUBCUT PRN ×4 (05:30→21:31)
[2022-06-25] MEDS: SOLU-Medrol 40 MG VIAL IVP SCH ×3 (06:11→21:30)
[2022-06-25] MEDS: NS 1,000 ML IV 1,000 ML IV SCH ×2 (07:08→17:14)
--- NOTE | 2022-06-25 07:26 | RAD ---
HISTORYSOB; CHFSTUDYCHEST, 1 [id number]/2022.TECHNIQUEAP view of the chestFINDINGSThe cardiac silhouette is stably enlarged. Mediastinal contours appear stable. No significant change in bilateral interstitial opacities. No definite pleural effusion or pneumothorax.IMPRESSIONBilateral interstitial opacities appear similar to prior and may represent mild pulmonary edema given the indication.Electronically signed by: Fredy Cuello (Jun 25, 2022 07:25:14)
[2022-06-25] MEDS: LEVAQUIN PREMIX IV 500 MG 500 MG/100 ML BAG IV SCH (08:21)
[2022-06-25] MEDS: LASIX IVP SCH (08:21)
[2022-06-25] MEDS: FLONASE NASAL SPRAY ENOSTRIL SCH (08:21)
[2022-06-25] MEDS: PULMICORT NEB TX 0.5 MG NEB SCH ×2 (08:21→21:10)
[2022-06-25] MEDS: FERROUS GLUCONATE PO SCH (08:21)
[2022-06-25] MEDS: DUONEB 0.5 MG/3 MG (3 mL) NEB SCH ×4 (08:21→21:10)
[2022-06-25] MEDS: LINZESS PO SCH (08:22)
[2022-06-25] MEDS: MOBIC TAB 15 MG PO SCH (08:22)
[2022-06-25] MEDS: PriLOSEC PO SCH ×2 (08:24→20:48)
[2022-06-25] MEDS: TOPROL XL PO SCH (08:25)
[2022-06-25] MEDS: XANAX PO SCH ×2 (08:25→20:48)
[2022-06-25] MEDS: XARELTO PO SCH (08:26)
[2022-06-25] MEDS: ZyrTEC TAB 10 MG PO SCH (08:26)
--- NOTE | 2022-06-25 10:32 | PCM.PROG ---
Progress Note - Progress Note for Day of Date of Exam: 06/25/22 - Subjective Subjective: IS CURRENTLY INPATIENT STATUS FOR TREATMENT OF COPD WITH ACUTE BRONCHITIS AND CHF. TODAY, HE IS ALERT AND ORIENTED, LYING IN BED ON MORNING ROUNDS. HE CONTINUES WITH COMPLAINTS OF SHORTNESS OF BREATH THIS MORNING. HE ALSO COMPLAINS OF A NON-PRODUCTIVE COUGH. HE DOES ADMIT TO SLIGHT I MPROVEMENT IN SYMPTOMS SINCE ADMISSION. HE IS CURRENTLY UTILIZING OXYGEN VIA NASAL CANNULA AT 2 LPM. ON EXAMINATION, HEART IS REGULAR IN RATE AND RHYTHM. BILATERAL LUNGS ARE NOTED WITH DIMINISHED LUNG SOUNDS THROUGHOUT. ABDOMEN IS ROUND, SOFT, AND NON-TENDER WITH NORMAL BOWEL SOUNDS NOTED IN ALL QUADRANTS. MILD EDEMA NOTED TO UPPER EXTREMITIES. LOWER EXTREMITIES NOTED WITH 1+ PITTING EDEMA. HIS VITALS THIS MORNING ARE: 98.6-75-28-92%-136/71. LABS WERE OBTAINED. WBC 13.6, RBC 3.91, HGB 11.8, HCT 35.3, SODIUM 133, POTASSIUM 5.0, CHLORIDE 95, BUN 19, CREATININE 1.13, GLUCOSE 244, CALCIUM 9.4, AST 16, ALT 24, ALK PHOS 199, BNP 188, TOTAL PROTEIN 8.5, ALBUMIN 3.0. BLOOD CULTURES ARE PENDING. PRELIMINARY CULTURE REVEAL GROWTH OF GRAM POSITIVE COCCI. WE ARE AWAITING THE FINAL REPORTS. A CHEST XRAY WAS OBTAINED AND REVEALED: Bilateral interstitial opacities appear similar to prior and may represent mild pulmonary edema given the indication. HE IS CURRENTLY RECEIVING NORMAL SALINE AT KVO, LEVAQUIN 500MG IV DAILY, DUONEBS QID, PULMICORT NEBS BID, LASIX 40MG IV DAILY, HUMULIN R SLIDING SCALE, OTBS ACHS, SOLU-MEDROL 40MG IV Q8H. HIS HOME MEDICATIONS WERE RESUMED. WE WILL CONTINUE WITH CURRENT PLAN OF CARE TODAY. OTHERWISE, WE PLAN TO FOLLOW-UP WITH AM LABS AND XRAY AND CONTINUE TO MONITOR. TIME SPENT ON CLINICAL ASSESSMENT, REVIEWING LABS AND IMAGING, DECISION MAKING, AND DOCUMENTATION GREATER THAN 45 MINUTES. - Past Medical Family Social History Past Med/Fam/Surg Hx: No changes since H&P Allergies: Allergies No Known Drug Allergies Allergy (Verified 05/08/17 17:27) - Review of Systems ROS: No change since H&P - Vital Signs and I&O's Vital Signs: Temperature 98.6 F Pulse Rate 86 Respiratory Rate 19 Blood Pressure [Left Arm] 139/77 Blood Pressure 155/75 O2 Sat by Pulse Oximetry 92 Intake and Output: Intake & Output 06/22/22 06/23/22 06/24/22 06/25/22 11:59 11:59 11:59 11:59 Intake Total 2311 / 2311 1842 / 1842 1610 / 1610 1650 / 1650 Output Total 2275 / 2275 2600 / 2600 5500 / 5500 88104 / 14863 Balance 36 / 36 -758 / -758 -3890 / -3890 -9050 / -9050 - Physical Exam Oriented: Normal Eyes: Normal Ear: Normal Nose: Normal Throat: Normal Respiratory: Generalized, Diminished Cardiovascular: Normal : Normal Auscultation: Bowel Sounds: Normal Tenderness: Normal Skin: Normal Musculoskeletal: Normal Psychiatric: Normal Mood Description: Calm Affect: Normal Speech Pattern: Clear, Appropriate - Laboratory and Diagnostics Result Diagrams: 06/25/22 03:59 06/25/22 03:59 Labs: 06/21/22 10:12 Blood Blood Culture - Preliminary 06/21/22 10:06 Blood Blood Culture - Preliminary Laboratory WBC 13.6 X10^3/uL (3.6-10.0) H 06/25/22 03:59 RBC 3.91 X10^6/uL (4.7-6.0) L 06/25/22 03:59 Hgb 11.8 g/dL (13.5-18.0) L 06/25/22 03:59 Hct 35.3 % (42.0-54.0) L 06/25/22 03:59 MCV 90.2 fL (80.0-100.0) 06/25/22 03:59 MCH 30.2 pg (27.0-34.0) 06/25/22 03:59 MCHC 33.4 g/dL (33.0-35.0) 06/25/22 03:59 RDW 15.6 % (11.6-16.5) 06/25/22 03:59 Plt Count 336 X10^3/uL (150.0-450.0) 06/25/22 03:59 MPV 7.4 fL (7.4-11.0) 06/25/22 03:59 Neut % (Auto) 73.8 % (42.0-75.0) 06/25/22 03:59 Lymph % (Auto) 10.4 % (21.0-51.0) L 06/25/22 03:59 [place] % (Auto) 15.5 % (0.0-13.0) H 06/25/22 03:59 Eos % (Auto) 0.0 % (0.9-2.9) L 06/25/22 03:59 Baso % (Auto) 0.3 % (0.2-1.0) 06/25/22 03:59 Neut # (Auto) 10.0 x10^3/uL (2.2-4.8) H 06/25/22 03:59 Lymph # (Auto) 1.4 X10^3/uL (1.3-2.9) 06/25/22 03:59 [place] # (Auto) 2.1 x10^3/uL (0.3-0.8) H 06/25/22 03:59 Eos # (Auto) 0.0 x10^3/uL (0.0-0.2) 06/25/22 03:59 Baso # (Auto) 0.0 X10^3/uL (0.0-0.1) 06/25/22 03:59 Absolute Nucleated RBC 0.1 /100WBC 06/25/22 03:59 Sodium 133 mmol/L (136-145) L 06/25/22 03:59 Corrected Sodium 136 mmol/L (136-145) 06/25/22 03:59 Potassium 5.0 mmol/L (3.5-5.1) 06/25/22 03:59 Chloride 95 mmol/L (98-107) L 06/25/22 03:59 Carbon Dioxide 30.0 mmol/L (21-32) 06/25/22 03:59 BUN 19 mg/dL (7-18) H 06/25/22 03:59 Creatinine 1.13 mg/dL (0.70-1.30) 06/25/22 03:59 Est GFR (MDRD) Af Amer > 60 (>60) 06/25/22 03:59 Est GFR (MDRD) Non-Af > 60 (>60) 06/25/22 03:59 Glucose 244 mg/dL (65-99) H 06/25/22 03:59 POC Glucose (mg/dL) 203 mg/dL (65-99) H 06/25/22 05:28 Calcium 9.4 mg/dL (8.5-10.1) 06/25/22 03:59 Corrected Calcium 10.2 mg/dL (8.5-10.1) H 06/25/22 03:59 Total Bilirubin 0.70 mg/dL (0.2-1.0) 06/25/22 03:59 AST 16 Units/L (15-37) 06/25/22 03:59 ALT 24 Units/L (12-78) 06/25/22 03:59 Alkaline Phosphatase 199 Units/L (46-116) H 06/25/22 03:59 B-Natriuretic Peptide 188 pg/mL (0-79) H 06/25/22 03:59 Total Protein 8.5 g/dL (6.4-8.2) H 06/25/22 03:59 Albumin 3.0 g/dL (3.4-5.0) L 06/25/22 03:59 Globulin 5.5 g/dL (2.5-4.5) H 06/25/22 03:59 Albumin/Globulin Ratio 0.5 Ratio (1.1-2.1) L 06/25/22 03:59 SARS-CoV-2 (PCR) Negative (NEGATIVE) 06/21/22 11:40 - Plan (1) COPD exacerbation Status: Acute Plan: NORMAL SALINE AT KVO, LEVAQUIN 500MG IV DAILY, DUONEBS QID, PULMICORT NEBS BID, LASIX 40MG IV DAILY, HUMULIN R SLIDING SCALE, OTBS ACHS, SOLU-MEDROL 40MG IV Q8H. HIS HOME MEDICATIONS WERE RESUMED. (2) Acute bronchitis Status: Acute Qualifiers: Bronchitis organism: unspecified organism Qualified Code(s): J20.9 - Acute bronchitis, unspecified (3) Right-sided heart failure Status: Chronic Qualifiers: Heart failure chronicity: acute on chronic Qualified Code(s): I50.813 - Acute on chronic right heart failure (4) Hyponatremia Status: Acute (5) GERD (gastroesophageal reflux disease) Status: Chronic Qualifiers: Esophagitis presence: esophagitis presence not specified Qualified Code(s): K21.9 - Gastro-esophageal reflux disease without esophagitis (6) Hypertension Status: Chronic Qualifiers: Hypertension type: essential hypertension Qualified Code(s): I10 - Essential (primary) hypertension
[2022-06-25] MEDS: SNACK - Diabetic Appropriate PO SCH (20:48)
[2022-06-26 05:18] LABS: BASOPHILS % (AUTO) 0.2 % (0.2-1.0); HEMATOCRIT 36.1 % (42.0-54.0); HEMOGLOBIN 12.3 g/dL (13.5-18.0); LYMPHOCYTES # (AUTO) 1.6 X10^3/uL (1.3-2.9); LYMPHOCYTES % (AUTO) 8.9 % (21.0-51.0); MEAN CORPUSCULAR HEMOGLOBIN 30.2 pg (27.0-34.0); MEAN PLATELET VOLUME 7.6 fL (7.4-11.0); MONOCYTES # (AUTO) 2.5 x10^3/uL (0.3-0.8); MONOCYTES % (AUTO) 13.8 % (0.0-13.0); NEUTROPHILS # (AUTO) 14.2 x10^3/uL (2.2-4.8); NEUTROPHILS % (AUTO) 77.1 % (42.0-75.0); RED BLOOD COUNT 4.06 X10^6/uL (4.7-6.0); RED CELL DISTRIBUTION WIDTH 15.6 % (11.6-16.5); WHITE BLOOD COUNT 18.4 X10^3/uL (3.6-10.0)
[2022-06-26 05:32] LABS: ALANINE AMINOTRANSFERASE 26 Units/L (12-78); ALBUMIN 3.1 g/dL (3.4-5.0); ALKALINE PHOSPHATASE 198 Units/L (46-116); ASPARTATE AMINO TRANSFERASE 13 Units/L (15-37); BLOOD UREA NITROGEN 22 mg/dL (7-18); CALCIUM 9.9 mg/dL (8.5-10.1); CARBON DIOXIDE 27.3 mmol/L (21-32); CHLORIDE 95 mmol/L (98-107); COR CA(FOR HYPOALB) 10.6 mg/dL (8.5-10.1); COR NA(FOR HYPERGLY) 136 mmol/L (136-145); CREATININE 1.09 mg/dL (0.70-1.30); SODIUM 131 mmol/L (136-145); TOTAL PROTEIN 8.7 g/dL (6.4-8.2); eGFR NON BLACK RACES > 60 (>60)
[2022-06-26] MEDS: NovoLIN R (or HumuLIN R) SUBCUT PRN ×2 (05:48→12:38)
[2022-06-26] MEDS: SOLU-Medrol 40 MG VIAL IVP SCH (05:49)
--- NOTE | 2022-06-26 06:20 | RAD ---
HISTORYShortness of breathSTUDYChest AP [id number] heart remains enlarged. No definite congestive heart failure is identified. No acute alveolar infiltrates are present. Mild interstitial lung changes are present. No pleural effusions are identified. Bony thorax is unremarkable.IMPRESSIONMild cardiomegaly but without definite congestive heart failure on today's examinationMild interstitial lung changesElectronically signed by: BETTY PORTER (Jun 26, 2022 06:18:33)
[2022-06-26] MEDS: DUONEB 0.5 MG/3 MG (3 mL) NEB SCH (08:15)
[2022-06-26] MEDS: PULMICORT NEB TX 0.5 MG NEB SCH (08:15)
[2022-06-26] MEDS: LEVAQUIN PREMIX IV 500 MG 500 MG/100 ML BAG IV SCH (08:40)
[2022-06-26] MEDS: XARELTO PO SCH (08:41)
[2022-06-26] MEDS: LASIX IVP SCH (08:41)
[2022-06-26] MEDS: MOBIC TAB 15 MG PO SCH (08:42)
[2022-06-26] MEDS: LINZESS PO SCH (08:42)
[2022-06-26] MEDS: TOPROL XL PO SCH (08:42)
[2022-06-26] MEDS: XANAX PO SCH (08:42)
[2022-06-26] MEDS: PriLOSEC PO SCH (08:43)
[2022-06-26] MEDS: FERROUS GLUCONATE PO SCH (08:43)
[2022-06-26] MEDS: ZyrTEC TAB 10 MG PO SCH (08:43)
[2022-06-26] MEDS: FLONASE NASAL SPRAY ENOSTRIL SCH (08:44)
[2022-06-26 10:58] VITALS: BP 170/69
[2022-06-26] MEDS: NS 1,000 ML IV 1,000 ML IV SCH (10:58)
== END 2022-06-26 12:50 | disposition home or self-care (01) | DRG 192 ==
LOC: ICU
PROVIDERS: ADMIT Internal Medicine; ATTEND Internal Medicine
DX: E11.65 Type 2 diabetes mellitus with hyperglycemia; Z20.822 Contact with and (suspected) exposure to COVID-19; J44.1 Chronic obstructive pulmonary disease with (acute) exacerbation; R06.02 Shortness of breath; I50.9 Heart failure, unspecified

== ENCOUNTER 2022-12-10 18:30 | Observation (INO) ==
[2022-12-10] MEDS ORDERED: NS 1,000 ML IV 1,000 ML IV ONE (19:12)
--- NOTE | 2022-12-10 19:12 | DR.AMS ---
HPI <He Hilton - Last Filed: 12/12/22 08:13> Time Seen Time Seen by Provider: 12/10/22 19:11 PCP Primary Care Physician: Felice Complaint Cheif Complaint Doctors Comments: 57 y/o male presents for evlauation. Chief Complaint:: Pt brought into the ER by his who states pt is "not alert". states pt was prescribed some cough medicine and an antibiotic for a cough on 11/[address] pierre. She states symptoms resided but then came back. states he has "stuff coming out if his eyes" and pt complaints of burning at times. also states pt has had a decrease in urine output and a foul od or. pt verbalizes he feels "really really bad" COVID-19 Has patient experienced Coronavirus symptoms: Yes Coronavirus symptoms experienced: Coughing Source History Provided: Patient and Family Member Mode of Arrival Mode of Arrival: Wheelchair Timing Onset of Chief Complaint: 11/21/22 <Pamela Dinero - Last Filed: 12/11/22 01:10> HPI Comment HPI Comment: Pt has been acting strange and sleeping a lot for the past three days; he finished abx and cough med as below and only has a slight cough currently; he says he "aches" all over and normally using pain medication for this but has not had one in several hours since being here; normally, he is active and communicative per and nothing at all like this normally. PMH <He Torovandana - Last Filed: 12/12/22 08:13> PMH Past Medical History: Yes Past Medical History: CHF and Hypertension Past Surgical History: Yes Surgical History: Other Past Surgical History Comment: IVC Filter Family History History of Family Medical Conditions: Yes Family Medical History: Diabetes Mellitus and Hypertension Social History Alcohol Use: None Do you use any recreational Drugs:: No Lives With: Alone Lives Where: Home Travel Risk Has patient experienced Coronavirus symptoms: Yes Coronavirus symptoms experienced: Coughing Infectious screening Have you traveled outside the country in the last 6 months?: No Isolation: Standard <Pamela Dinero - Last Filed: 12/11/22 01:10> Review of Systems Constitutional: No Symptoms Reported ENTM: No Symptoms Reported Respiratoy: No Symptoms Reported Cardiovascular: No Symptoms Reported Gastrointestinal/Abdominal: No Symptoms Reported Musculoskeletal: Joint Pain Integumentary: No Symptoms Reported Hematologic/Lymphatic: No Symptoms Reported Endocrine: No Symptoms Reported Psychiatric: No Symptoms Reported PE <He Hilton - Last Filed: 12/12/22 08:13> Vitals Vital Signs: Temp Pulse Resp BP BP Pulse Ox O2 Del Method 02/12/21 15:47 139/77 12/11/22 00:30 90 13 99 12/11/22 00:30 176/78 12/11/22 00:15 94 H 11 L 100 12/11/22 00:15 166/72 12/11/22 00:00 93 H 13 99 12/11/22 00:00 173/79 12/10/22 23:45 89 13 100 12/10/22 23:45 174/78 12/10/22 23:37 92 H 13 99 12/10/22 23:37 173/79 12/10/22 23:30 88 13 99 12/10/22 23:30 170/73 12/10/22 23:15 93 H 13 12/10/22 23:15 159/70 12/10/22 23:00 92 H 12 12/10/22 23:00 152/70 12/10/22 22:45 88 12 12/10/22 22:45 168/76 12/10/22 22:30 88 12 12/10/22 22:30 165/75 12/10/22 22:15 85 12 12/10/22 22:15 161/61 12/10/22 22:01 169/74 12/10/22 22:01 90 13 12/10/22 22:00 91 H 13 12/10/22 21:45 85 13 96 12/10/22 21:45 152/67 12/10/22 21:30 83 12 96 12/10/22 21:30 157/71 12/10/22 21:15 81 12 96 12/10/22 21:15 154/72 12/10/22 21:00 86 13 95 12/10/22 21:00 160/75 12/10/22 20:58 163/77 12/10/22 20:58 90 91 L 12/10/22 20:45 84 12 94 L 12/10/22 20:45 161/71 12/10/22 20:30 81 12 97 12/10/22 20:30 162/74 12/10/22 20:15 83 12 98 12/10/22 20:15 152/72 12/10/22 20:00 86 94 L 12/10/22 20:00 153/70 12/10/22 19:54 85 95 12/10/22 19:45 146/62 12/10/22 19:30 151/70 12/10/22 18:48 98.9 F 90 18 131/62 90 L Nasal Cannula 07/19/22 01:15 103/52 FiO2 02/12/21 15:47 12/11/22 00:30 12/11/22 00:30 12/11/22 00:15 12/11/22 00:15 12/11/22 00:00 12/11/22 00:00 12/10/22 23:45 12/10/22 23:45 12/10/22 23:37 12/10/22 23:37 12/10/22 23:30 12/10/22 23:30 12/10/22 23:15 12/10/22 23:15 12/10/22 23:00 12/10/22 23:00 12/10/22 22:45 12/10/22 22:45 12/10/22 22:30 12/10/22 22:30 12/10/22 22:15 12/10/22 22:15 12/10/22 22:01 12/10/22 22:01 12/10/22 22:00 12/10/22 21:45 12/10/22 21:45 12/10/22 21:30 12/10/22 21:30 12/10/22 21:15 12/10/22 21:15 12/10/22 21:00 12/10/22 21:00 12/10/22 20:58 12/10/22 20:58 12/10/22 20:45 12/10/22 20:45 12/10/22 20:30 12/10/22 20:30 12/10/22 20:15 12/10/22 20:15 12/10/22 20:00 12/10/22 20:00 12/10/22 19:54 12/10/22 19:45 12/10/22 19:30 12/10/22 18:48 07/19/22 01:15 28 <Pamela Bar - Last Filed: 12/11/22 01:10> Vitals Vital Signs: Temp Pulse Resp BP BP Pulse Ox O2 Del Method 02/12/21 15:47 139/77 12/11/22 00:30 90 13 99 12/11/22 00:30 176/78 12/11/22 00:15 94 H 11 L 100 12/11/22 00:15 166/72 12/11/22 00:00 93 H 13 99 12/11/22 00:00 173/79 12/10/22 23:45 89 13 100 12/10/22 23:45 174/78 12/10/22 23:37 92 H 13 99 12/10/22 23:37 173/79 12/10/22 23:30 88 13 99 12/10/22 23:30 170/73 12/10/22 23:15 93 H 13 12/10/22 23:15 159/70 12/10/22 23:00 92 H 12 12/10/22 23:00 152/70 12/10/22 22:45 88 12 12/10/22 22:45 168/76 12/10/22 22:30 88 12 12/10/22 22:30 165/75 12/10/22 22:15 85 12 12/10/22 22:15 161/61 12/10/22 22:01 169/74 12/10/22 22:01 90 13 12/10/22 22:00 91 H 13 12/10/22 21:45 85 13 96 12/10/22 21:45 152/67 12/10/22 21:30 83 12 96 12/10/22 21:30 157/71 12/10/22 21:15 81 12 96 12/10/22 21:15 154/72 12/10/22 21:00 86 13 95 12/10/22 21:00 160/75 12/10/22 20:58 163/77 12/10/22 20:58 90 91 L 12/10/22 20:45 84 12 94 L 12/10/22 20:45 161/71 12/10/22 20:30 81 12 97 12/10/22 20:30 162/74 12/10/22 20:15 83 12 98 12/10/22 20:15 152/72 12/10/22 20:00 86 94 L 12/10/22 20:00 153/70 12/10/22 19:54 85 95 12/10/22 19:45 146/62 12/10/22 19:30 151/70 12/10/22 18:48 98.9 F 90 18 131/62 90 L Nasal Cannula 07/19/22 01:15 103/52 FiO2 02/12/21 15:47 12/11/22 00:30 12/11/22 00:30 12/11/22 00:15 12/11/22 00:15 12/11/22 00:00 12/11/22 00:00 12/10/22 23:45 12/10/22 23:45 12/10/22 23:37 12/10/22 23:37 12/10/22 23:30 12/10/22 23:30 12/10/22 23:15 12/10/22 23:15 12/10/22 23:00 12/10/22 23:00 12/10/22 22:45 12/10/22 22:45 12/10/22 22:30 12/10/22 22:30 12/10/22 22:15 12/10/22 22:15 12/10/22 22:01 12/10/22 22:01 12/10/22 22:00 12/10/22 21:45 12/10/22 21:45 12/10/22 21:30 12/10/22 21:30 12/10/22 21:15 12/10/22 21:15 12/10/22 21:00 12/10/22 21:00 12/10/22 20:58 12/10/22 20:58 12/10/22 20:45 12/10/22 20:45 12/10/22 20:30 12/10/22 20:30 12/10/22 20:15 12/10/22 20:15 12/10/22 20:00 12/10/22 20:00 12/10/22 19:54 12/10/22 19:45 12/10/22 19:30 12/10/22 18:48 07/19/22 01:15 28 General Limitations: Language Barrier General Appearance: Alert Head Head Exam: Normal Inspection Eyes Eye exam: Normal Appearance ENT ENT Exam: Normal Exam External Ear Exam: Normal External Inspection Nose Exam: Normal Nose Exam Mouth Exam: Normal Inspection Throat Exam: Normal Inspection Neck Neck Exam: Normal Inspection Chest Chest Inspection: Normal Inspection Respiratory Respiratory Exam: Normal Lung Sounds Bilat Cardiovascular Cardiovascular Exam: Regular Rate and Normal Rhythm Abdominal Exam Abdominal Exam: Normal Inspection, Normal Bowel Sounds and Soft Extremities Extremities Exam: Normal Inspection Back Back Exam: Normal Inspection Neurological Neurological Exam: Alert and Oriented X3 Speech: Other (slow to respond, clear) Psychological Psychiatric Exam: Other (staring off to side, rarely blinking, no spontaneous verbal communication) Skin Skin Exam: Warm, Dry, Intact and Normal Color <Pamela Dinero - Last Filed: 12/11/22 01:10> Consultation Call Returned: 00:33 (Dr Harris accepts admission.) ROR <He Hilton - Last Filed: 12/12/22 08:13> Labs Reviewed Result Diagrams: 12/12/22 05:30 12/12/22 05:30 Laboratory: 12/10/22 19:22 Blood Blood Culture - Preliminary WBC 9.5 X10^3/uL (3.6-10.0) 12/10/22 19:15 RBC 3.61 X10^6/uL (4.7-6.0) L 12/10/22 19:15 Hgb 10.3 g/dL (13.5-18.0) L 12/10/22 19:15 Hct 31.8 % (42.0-54.0) L 12/10/22 19:15 MCV 88.3 fL (80.0-100.0) 12/10/22 19:15 MCH 28.6 pg (27.0-34.0) 12/10/22 19:15 MCHC 32.4 g/dL (33.0-35.0) L 12/10/22 19:15 RDW 16.7 % (11.6-16.5) H 12/10/22 19:15 Plt Count 287 X10^3/uL (150.0-450.0) 12/10/22 19:15 MPV 7.9 fL (7.4-11.0) 12/10/22 19:15 Neut % (Auto) 74.9 % (42.0-75.0) 12/10/22 19:15 Lymph % (Auto) 10.1 % (21.0-51.0) L 12/10/22 19:15 Cannon % (Auto) 8.3 % (0.0-13.0) 12/10/22 19:15 Eos % (Auto) 3.3 % (0.9-2.9) H 12/10/22 19:15 Baso % (Auto) 3.4 % (0.2-1.0) H 12/10/22 19:15 Neut # (Auto) 7.1 x10^3/uL (2.2-4.8) H 12/10/22 19:15 Lymph # (Auto) 1.0 X10^3/uL (1.3-2.9) L 12/10/22 19:15 Cannon # (Auto) 0.8 x10^3/uL (0.3-0.8) 12/10/22 19:15 Eos # (Auto) 0.3 x10^3/uL (0.0-0.2) H 12/10/22 19:15 Baso # (Auto) 0.3 X10^3/uL (0.0-0.1) H 12/10/22 19:15 Absolute Nucleated RBC 0.0 /100WBC 12/10/22 19:15 Sample Site Rrad 12/10/22 23:12 ABG pH 7.450 (7.35-7.45) 12/10/22 23:12 ABG pCO2 52.0 mmHg (35.0-45.0) H* 12/10/22 23:12 ABG pO2 79.0 mmHg (80.0-100.0) L 12/10/22 23:12 ABG HCO3 36.1 mmol/L (22-26) H* 12/10/22 23:12 ABG O2 Saturation 96.0 % (90-100) 12/10/22 23:12 ABG Base Excess 10.4 mmol/L (-2.0-2.0) H 12/10/22 23:12 Erick Test Pos 12/10/22 23:12 A-a Gradient 56.0 mmHg 12/10/22 23:12 FiO2 28.0 12/10/22 23:12 Blood Gas Comments James well-mtf 12/10/22 23:12 Sodium 136 mmol/L (136-145) 12/10/22 19:15 Corrected Sodium 137 mmol/L (136-145) 12/10/22 19:15 Potassium 3.8 mmol/L (3.5-5.1) 12/10/22 19:15 Chloride 98 mmol/L (98-107) 12/10/22 19:15 Carbon Dioxide 36.9 mmol/L (21-32) H 12/10/22 19:15 BUN 14 mg/dL (7-18) 12/10/22 19:15 Creatinine 1.05 mg/dL (0.70-1.30) 12/10/22 19:15 Est GFR (MDRD) Af Amer > 60 (>60) 12/10/22 19:15 Est GFR (MDRD) Non-Af > 60 (>60) 12/10/22 19:15 Glucose 127 mg/dL (65-99) H 12/10/22 19:15 Lactic Acid 1.6 mmol/L (0.4-2.0) 12/10/22 19:15 Calcium 9.1 mg/dL (8.5-10.1) 12/10/22 19:15 Corrected Calcium 10.2 mg/dL (8.5-10.1) H 12/10/22 19:15 Total Bilirubin 0.80 mg/dL (0.2-1.0) 12/10/22 19:15 AST 28 Units/L (15-37) 12/10/22 19:15 ALT 26 Units/L (12-78) 12/10/22 19:15 Alkaline Phosphatase 200 Units/L (46-116) H 12/10/22 19:15 B-Natriuretic Peptide 50.6 pg/mL (0-79) 12/10/22 19:15 Total Protein 8.5 g/dL (6.4-8.2) H 12/10/22 19:15 Albumin 2.6 g/dL (3.4-5.0) L 12/10/22 19:15 Globulin 5.9 g/dL (2.5-4.5) H 12/10/22 19:15 Albumin/Globulin Ratio 0.4 Ratio (1.1-2.1) L 12/10/22 19:15 Specimen Type Random urine 12/10/22 21:57 Urine Color Yellow (YELLOW) 12/10/22 21:57 Urine Appearance Slightly hazy (CLEAR) 12/10/22 21:57 Urine pH 7.0 (5.0 - 8.0) 12/10/22 21:57 Ur Specific [place] 1.015 (1.000-1.030) 12/10/22 21:57 Urine Protein 2+ (NEGATIVE) 12/10/22 21:57 Urine Glucose (UA) Negative (NEGATIVE) 12/10/22 21:57 Urine Ketones Negative (NEGATIVE) 12/10/22 21:57 Urine Blood Negative (NEGATIVE) 12/10/22 21:57 Urine Nitrite Negative (NEGATIVE) 12/10/22 21:57 Urine Bilirubin 1+ (NEGATIVE) 12/10/22 21:57 Urine Urobilinogen 2+ (NORMAL) 12/10/22 21:57 Ur Leukocyte Esterase 1+ (NEGATIVE) 12/10/22 21:57 Urine RBC None seen /HPF (0-3) 12/10/22 21:57 Urine WBC 3-5 /HPF (0-5) 12/10/22 21:57 Ur Squamous Epith Cells Rare /HPF (NEGATIVE) 12/10/22 21:57 Urine Bacteria Trace /HPF (NEGATIVE) 12/10/22 21:57 Urine Mucus Rare /HPF (NEGATIVE) 12/10/22 21:57 Ur Culture Indicated? No/not indicated 12/10/22 21:57 SARS-CoV-2 (PCR) Negative (NEGATIVE) 12/10/22 21:49 Influenza Type A (PCR) Negative (NEGATIVE) 12/10/22 21:49 Influenza Type B (PCR) Negative (NEGATIVE) 12/10/22 21:49 RSV (PCR) Negative (NEGATIVE) 12/10/22 21:49 EKG Rate: 89 Grabill: Normal Rhythm: NSR Block: None ST: Nonsp <Pamela Dinero - Last Filed: 12/11/22 01:10> Labs Reviewed Laboratory Results Reviewed?: Yes Laboratory: 12/10/22 19:22 Blood Blood Culture - Preliminary WBC 9.5 X10^3/uL (3.6-10.0) 12/10/22 19:15 RBC 3.61 X10^6/uL (4.7-6.0) L 12/10/22 19:15 Hgb 10.3 g/dL (13.5-18.0) L 12/10/22 19:15 Hct 31.8 % (42.0-54.0) L 12/10/22 19:15 MCV 88.3 fL (80.0-100.0) 12/10/22 19:15 MCH 28.6 pg (27.0-34.0) 12/10/22 19:15 MCHC 32.4 g/dL (33.0-35.0) L 12/10/22 19:15 RDW 16.7 % (11.6-16.5) H 12/10/22 19:15 Plt Count 287 X10^3/uL (150.0-450.0) 12/10/22 19:15 MPV 7.9 fL (7.4-11.0) 12/10/22 19:15 Neut % (Auto) 74.9 % (42.0-75.0) 12/10/22 19:15 Lymph % (Auto) 10.1 % (21.0-51.0) L 12/10/22 19:15 Cannon % (Auto) 8.3 % (0.0-13.0) 12/10/22 19:15 Eos % (Auto) 3.3 % (0.9-2.9) H 12/10/22 19:15 Baso % (Auto) 3.4 % (0.2-1.0) H 12/10/22 19:15 Neut # (Auto) 7.1 x10^3/uL (2.2-4.8) H 12/10/22 19:15 Lymph # (Auto) 1.0 X10^3/uL (1.3-2.9) L 12/10/22 19:15 Cannon # (Auto) 0.8 x10^3/uL (0.3-0.8) 12/10/22 19:15 Eos # (Auto) 0.3 x10^3/uL (0.0-0.2) H 12/10/22 19:15 Baso # (Auto) 0.3 X10^3/uL (0.0-0.1) H 12/10/22 19:15 Absolute Nucleated RBC 0.0 /100WBC 12/10/22 19:15 Sample Site Rrad 12/10/22 23:12 ABG pH 7.450 (7.35-7.45) 12/10/22 23:12 ABG pCO2 52.0 mmHg (35.0-45.0) H* 12/10/22 23:12 ABG pO2 79.0 mmHg (80.0-100.0) L 12/10/22 23:12 ABG HCO3 36.1 mmol/L (22-26) H* 12/10/22 23:12 ABG O2 Saturation 96.0 % (90-100) 12/10/22 23:12 ABG Base Excess 10.4 mmol/L (-2.0-2.0) H 12/10/22 23:12 Erick Test Pos 12/10/22 23:12 A-a Gradient 56.0 mmHg 12/10/22 23:12 FiO2 28.0 12/10/22 23:12 Blood Gas Comments James well-mtf 12/10/22 23:12 Sodium 136 mmol/L (136-145) 12/10/22 19:15 Corrected Sodium 137 mmol/L (136-145) 12/10/22 19:15 Potassium 3.8 mmol/L (3.5-5.1) 12/10/22 19:15 Chloride 98 mmol/L (98-107) 12/10/22 19:15 Carbon Dioxide 36.9 mmol/L (21-32) H 12/10/22 19:15 BUN 14 mg/dL (7-18) 12/10/22 19:15 Creatinine 1.05 mg/dL (0.70-1.30) 12/10/22 19:15 Est GFR (MDRD) Af Amer > 60 (>60) 12/10/22 19:15 Est GFR (MDRD) Non-Af > 60 (>60) 12/10/22 19:15 Glucose 127 mg/dL (65-99) H 12/10/22 19:15 Lactic Acid 1.6 mmol/L (0.4-2.0) 12/10/22 19:15 Calcium 9.1 mg/dL (8.5-10.1) 12/10/22 19:15 Corrected Calcium 10.2 mg/dL (8.5-10.1) H 12/10/22 19:15 Total Bilirubin 0.80 mg/dL (0.2-1.0) 12/10/22 19:15 AST 28 Units/L (15-37) 12/10/22 19:15 ALT 26 Units/L (12-78) 12/10/22 19:15 Alkaline Phosphatase 200 Units/L (46-116) H 12/10/22 19:15 B-Natriuretic Peptide 50.6 pg/mL (0-79) 12/10/22 19:15 Total Protein 8.5 g/dL (6.4-8.2) H 12/10/22 19:15 Albumin 2.6 g/dL (3.4-5.0) L 12/10/22 19:15 Globulin 5.9 g/dL (2.5-4.5) H 12/10/22 19:15 Albumin/Globulin Ratio 0.4 Ratio (1.1-2.1) L 12/10/22 19:15 Specimen Type Random urine 12/10/22 21:57 Urine Color Yellow (YELLOW) 12/10/22 21:57 Urine Appearance Slightly hazy (CLEAR) 12/10/22 21:57 Urine pH 7.0 (5.0 - 8.0) 12/10/22 21:57 Ur Specific [place] 1.015 (1.000-1.030) 12/10/22 21:57 Urine Protein 2+ (NEGATIVE) 12/10/22 21:57 Urine Glucose (UA) Negative (NEGATIVE) 12/10/22 21:57 Urine Ketones Negative (NEGATIVE) 12/10/22 21:57 Urine Blood Negative (NEGATIVE) 12/10/22 21:57 Urine Nitrite Negative (NEGATIVE) 12/10/22 21:57 Urine Bilirubin 1+ (NEGATIVE) 12/10/22 21:57 Urine Urobilinogen 2+ (NORMAL) 12/10/22 21:57 Ur Leukocyte Esterase 1+ (NEGATIVE) 12/10/22 21:57 Urine RBC None seen /HPF (0-3) 12/10/22 21:57 Urine WBC 3-5 /HPF (0-5) 12/10/22 21:57 Ur Squamous Epith Cells Rare /HPF (NEGATIVE) 12/10/22 21:57 Urine Bacteria Trace /HPF (NEGATIVE) 12/10/22 21:57 Urine Mucus Rare /HPF (NEGATIVE) 12/10/22 21:57 Ur Culture Indicated? No/not indicated 12/10/22 21:57 SARS-CoV-2 (PCR) Negative (NEGATIVE) 12/10/22 21:49 Influenza Type A (PCR) Negative (NEGATIVE) 12/10/22 21:49 Influenza Type B (PCR) Negative (NEGATIVE) 12/10/22 21:49 RSV (PCR) Negative (NEGATIVE) 12/10/22 21:49 Other Results Comments: alert, knows where he is but no spontaneous communication; stares off into space; ct negative but he acts like he may have had a stroke XRAY XRAY Interpreted by: Radiologist X-ray Results: ct brain: [No acute intracranial process can be identified.] pcxr: Findings could represent an atypical/viral infectious process and/or chronic interstitial changes. Differential diagnosis also includes mild cardiogenic edema. Opioid <He iHlton - Last Filed: 12/12/22 08:13> Opioid Risk Tool Age (Jose box if 16-45): No History of Preadolescent Sexual Abuse: No Total: 0 Total Score Risk Category: Low Risk Copyright: [employer] predicting aberrant behaviors <Pamela Dinero - Last Filed: 12/11/22 01:10> Opioid Risk Tool Total: 0 Total Score Risk Category: Low Risk Discharge Plan Diagnosis Discharge Problem: Acute conjunctivitis, bilateral, Hypertension Altered mental state Qualifiers: Altered mental status type: stupor Qualified Code(s): R40.1 - Stupor Discharge Plan Patient Disposition: 09 ADMITTED INPATIENT Condition: Stable ADDITIONAL NOTES <He Hilton - Last Filed: 12/12/22 08:13> Additional Notes Additional Notes: W/u initiated by Dr Hilton, pt seen and treated by Dr Dinero.
[2022-12-10] MEDS ORDERED: NS 1,000 ML IV 1,000 ML ONE (19:17)
--- NOTE | 2022-12-10 19:17 | EKG ---
Test Reason : AMS Blood Pressure : */* mmHG Vent. Rate : 89 BPM Atrial Rate : 89 BPM P-R Int : 164 ms QRS Dur : 82 ms QT Int : 390 ms P-R-T Axes : 53 47 60 degrees QTc Int : 474 ms Normal sinus rhythm Nonspecific ST abnormality Abnormal ECG No previous ECGs available Confirmed by Mynor North ([id number]) on 12/11/2022 10:53:53 AM Referred By: Confirmed By: Mynor North
[2022-12-10 19:37] LABS: BASOPHILS # (AUTO) 0.3 X10^3/uL (0.0-0.1); BASOPHILS % (AUTO) 3.4 % (0.2-1.0); EOSINOPHILS # (AUTO) 0.3 x10^3/uL (0.0-0.2); EOSINOPHILS % (AUTO) 3.3 % (0.9-2.9); HEMATOCRIT 31.8 % (42.0-54.0); HEMOGLOBIN 10.3 g/dL (13.5-18.0); LYMPHOCYTES % (AUTO) 10.1 % (21.0-51.0); MEAN CORPUSCULAR HEMOGLOBIN 28.6 pg (27.0-34.0); MEAN CORPUSCULAR HGB CONC 32.4 g/dL (33.0-35.0); MEAN CORPUSCULAR VOLUME 88.3 fL (80.0-100.0); MEAN PLATELET VOLUME 7.9 fL (7.4-11.0); MONOCYTES # (AUTO) 0.8 x10^3/uL (0.3-0.8); MONOCYTES % (AUTO) 8.3 % (0.0-13.0); NEUTROPHILS # (AUTO) 7.1 x10^3/uL (2.2-4.8); NEUTROPHILS % (AUTO) 74.9 % (42.0-75.0); RED BLOOD COUNT 3.61 X10^6/uL (4.7-6.0); RED CELL DISTRIBUTION WIDTH 16.7 % (11.6-16.5); WHITE BLOOD COUNT 9.5 X10^3/uL (3.6-10.0)
[2022-12-10 19:50] LABS: ALANINE AMINOTRANSFERASE 26 Units/L (12-78); ALBUMIN 2.6 g/dL (3.4-5.0); ALKALINE PHOSPHATASE 200 Units/L (46-116); ASPARTATE AMINO TRANSFERASE 28 Units/L (15-37); BLOOD UREA NITROGEN 14 mg/dL (7-18); CALCIUM 9.1 mg/dL (8.5-10.1); CARBON DIOXIDE 36.9 mmol/L (21-32); CHLORIDE 98 mmol/L (98-107); COR CA(FOR HYPOALB) 10.2 mg/dL (8.5-10.1); COR NA(FOR HYPERGLY) 137 mmol/L (136-145); CREATININE 1.05 mg/dL (0.70-1.30); SODIUM 136 mmol/L (136-145); TOTAL PROTEIN 8.5 g/dL (6.4-8.2); eGFR NON BLACK RACES > 60 (>60)
[2022-12-10 19:53] LABS: LACTIC ACID 1.6 mmol/L (0.4-2.0)
--- NOTE | 2022-12-10 21:04 | RAD ---
HISTORYcough, weaknessSTUDYCHEST, 1 VIEWCOMPARISONSeptember 2021TECHNIQUEChest radiographic imaging, AP portable projection, 1 imageFINDINGSNo cardiomegaly.No focal airspace disease.Increased interstitial markings; similar to the previous exam.No pleural effusion.No pneumothorax.No acute osseous abnormality.IMPRESSIONFindings could represent an atypical/viral infectious process and/or chronic interstitial changes. Differential diagnosis also includes mild cardiogenic edema.Electronically signed by: Ned Rooney (Dec 10, 2022 21:03:01)
--- NOTE | 2022-12-10 21:09 | CT ---
HISTORYAltered mental statusSTUDYCT brain without contrastCOMPARISONSeptember 2021TECHNIQUEMultiple axial images of the brain were obtained from the skull base to the vertex [without] administration of IV contrast.Dose reduction techniques including Automated Exposure Control (AEC) and adjustment of mA and kV were utlized.FINDINGS[No acute intraparenchymal hemorrhage or mass can be identified.] [No extra-axial fluid collections are seen.] [No alteration in the attenuation of the brain parenchyma can be identified to suggest acute or subacute ischemic change.] [The ventricular system is symmetric and nondilated.] [The extracranial structures are grossly unremarkable.]IMPRESSION[No acute intracranial process can be identified.]Electronically signed by: SHIRLEY GARCIA (Dec 10, 2022 21:08:13)
[2022-12-10 22:03] LABS: BILIRUBIN,URINE 1+ (NEGATIVE); BLOOD/HEMOGLOBIN,URINE NEGATIVE (NEGATIVE); GLUCOSE, URINE NEGATIVE (NEGATIVE); KETONES,URINE NEGATIVE (NEGATIVE); LEUKOCYTE ESTERASE ,URINE 1+ (NEGATIVE); NITRITES,URINE NEGATIVE (NEGATIVE); PROTEIN,URINE 2+ (NEGATIVE); UROBILINOGEN,URINE 2+ (NORMAL)
[2022-12-10 22:10] LABS: APPEARANCE,URINE SLIGHTLY HAZY (CLEAR); COLOR,URINE YELLOW (YELLOW)
[2022-12-10 22:11] LABS: BACTERIA,URINE TRACE /HPF (NEGATIVE); RBC,URINE NONE SEEN /HPF (0-3); SQUAMOUS EPITHELIAL CELL,UR RARE /HPF (NEGATIVE)
[2022-12-10 23:16] LABS: ABG BASE EXCESS 10.4 mmol/L (-2.0-2.0)
[2022-12-10 23:18] LABS: ABG ALLEN TEST POS; ABG HCO3 36.1 mmol/L (22-26)
[2022-12-11] MEDS: NS 1,000 ML IV 1,000 ML IV SCH ×3 (01:43→14:31)
[2022-12-11] MEDS: GENTAMICIN SULF (OPHTH) AFFEYE SCH ×6 (02:07→21:02)
[2022-12-11] MEDS: PROVENTIL NEB TX 0.083% 2.5MG/ 3ML NEB SCH ×5 (05:15→20:30)
[2022-12-11 06:05] LABS: BASOPHILS # (AUTO) 0.1 X10^3/uL (0.0-0.1); BASOPHILS % (AUTO) 0.9 % (0.2-1.0); EOSINOPHILS # (AUTO) 0.3 x10^3/uL (0.0-0.2); EOSINOPHILS % (AUTO) 3.5 % (0.9-2.9); HEMOGLOBIN 9.8 g/dL (13.5-18.0); LYMPHOCYTES # (AUTO) 1.3 X10^3/uL (1.3-2.9); MEAN CORPUSCULAR HEMOGLOBIN 28.7 pg (27.0-34.0); MEAN CORPUSCULAR HGB CONC 32.8 g/dL (33.0-35.0); MEAN CORPUSCULAR VOLUME 87.7 fL (80.0-100.0); MEAN PLATELET VOLUME 8.1 fL (7.4-11.0); MONOCYTES # (AUTO) 0.9 x10^3/uL (0.3-0.8); MONOCYTES % (AUTO) 11.9 % (0.0-13.0); NEUTROPHILS # (AUTO) 5.1 x10^3/uL (2.2-4.8); NEUTROPHILS % (AUTO) 66.7 % (42.0-75.0); RED BLOOD COUNT 3.42 X10^6/uL (4.7-6.0); RED CELL DISTRIBUTION WIDTH 16.7 % (11.6-16.5); WHITE BLOOD COUNT 7.6 X10^3/uL (3.6-10.0)
[2022-12-11 06:21] LABS: ALANINE AMINOTRANSFERASE 23 Units/L (12-78); ALBUMIN 2.4 g/dL (3.4-5.0); ALKALINE PHOSPHATASE 180 Units/L (46-116); ASPARTATE AMINO TRANSFERASE 29 Units/L (15-37); BLOOD UREA NITROGEN 12 mg/dL (7-18); CALCIUM 8.7 mg/dL (8.5-10.1); CARBON DIOXIDE 31.3 mmol/L (21-32); CHLORIDE 101 mmol/L (98-107); SODIUM 138 mmol/L (136-145); TOTAL PROTEIN 7.8 g/dL (6.4-8.2); eGFR NON BLACK RACES > 60 (>60)
--- NOTE | 2022-12-11 10:01 | MRI ---
HISTORYSTUPORSTUDYBRAIN W W/O CONCOMPARISONCT head from 12/10/2022.TECHNIQUEMultiplanar multi-sequence MRI of the brain was obtained utilizing standard departmental protocol. Sagittal and axial T1 weighted images were obtained. Axial T2 and flair weighted images were performed as well. Axial diffusion weighted and ADC trace mapping was performed. Exam performed with without contrast with 20 cc MultiHance given IV.FINDINGSLimitations: The superior most aspect of the frontoparietal lobes is outside of the field of view on several sequences. See image 22 series 9014 most cranial slice. Inferior-most cerebellar hemispheres are not included on the diffusion-weighted sequence.Diffusion imaging: [No abnormal restricted diffusion. The inferior-most cerebellar hemispheres are not visualized. See image 1 series 502.]Susceptibility weighted imaging: [No abnormal susceptibility artifact.]Brain volume: [Appropriate for age.]Ventricles and basal cisterns: FLAIR bright signal in the basilar cisterns and 4th ventricle is nonspecific but often due to technical artifact. No abnormal signal in these locations on other pulse sequences. No hydrocephalus.Extra-axial spaces: [No extra-axial collection.]Cerebral parynchema: [No mass, hematoma, or mass effect.] T1 bright appearance of the bilateral putamen image 1314 series 801.Pituitary and other sagittal midline structures: [Normal.]Visualized orbits: [Normal.]Paranasal sinuses and mastoid air cells: [Clear.]Bones: [Intact.]Other: [No pathologic enhancement is identified post-contrast.]IMPRESSION[Please see limitations above.]T1 bright appearance of the basal ganglia has many etiologies. For example, calcium or phosphate abnormalities, hepatic failure with copper deposition, or long-term parenteral nutrition with manganese deposition.FLAIR bright signal in the basilar cisterns and 4th ventricle is nonspecific but often due to technical artifact. No abnormal signal in these locations on other pulse sequences. No hydrocephalus.Electronically signed by: Fredy Cuello (Dec 11, 2022 09:59:56)
[2022-12-11] MEDS: LEVAQUIN PREMIX IV 500 MG 500 MG/100 ML BAG IV SCH (10:49)
[2022-12-11] MEDS: SOLU-Medrol 40 MG VIAL IVP SCH ×3 (10:49→21:01)
[2022-12-11] MEDS ORDERED: MICRO K EXTEN CAP 10 MEQ PO PRN (11:26)
[2022-12-11] MEDS ORDERED: K-DUR TAB 20 MEQ PO PRN (11:26)
[2022-12-11] MEDS ORDERED: POTASSIUM CHL 60 MEQ/NS 0.45% 500 ML IV PRN (11:26)
[2022-12-11] MEDS ORDERED: KLOR-CON PO PRN (11:26)
[2022-12-11] MEDS ORDERED: K-RIDER 10 MEQ/NS 100 ML 10 MEQ/100 ML BAG IV PRN (11:26)
[2022-12-11] MEDS ORDERED: POTASSIUM CHLORIDE LIQ 20 MEQ UDC PO PRN (11:26)
[2022-12-11] MEDS ORDERED: POTASSIUM CHL 40 MEQ/NS 0.45% 500 ML IV PRN (11:26)
[2022-12-11] MEDS: NovoLIN R (or HumuLIN R) SUBCUT PRN ×2 (15:59→21:02)
[2022-12-11] MEDS: SNACK - Diabetic Appropriate PO SCH (19:41)
[2022-12-12] MEDS: PROVENTIL NEB TX 0.083% 2.5MG/ 3ML NEB SCH ×6 (01:00→22:08)
[2022-12-12] MEDS: NS 1,000 ML IV 1,000 ML IV SCH ×2 (02:50→17:04)
[2022-12-12] MEDS: GENTAMICIN SULF (OPHTH) AFFEYE SCH ×4 (03:04→21:49)
[2022-12-12] MEDS: SOLU-Medrol 40 MG VIAL IVP SCH ×3 (05:39→21:49)
[2022-12-12 06:37] LABS: BASOPHILS % (AUTO) 0.1 % (0.2-1.0); HEMATOCRIT 27.8 % (42.0-54.0); HEMOGLOBIN 9.1 g/dL (13.5-18.0); LYMPHOCYTES # (AUTO) 0.6 X10^3/uL (1.3-2.9); LYMPHOCYTES % (AUTO) 9.1 % (21.0-51.0); MEAN CORPUSCULAR HEMOGLOBIN 28.7 pg (27.0-34.0); MEAN CORPUSCULAR HGB CONC 32.8 g/dL (33.0-35.0); MEAN CORPUSCULAR VOLUME 87.6 fL (80.0-100.0); MEAN PLATELET VOLUME 8.3 fL (7.4-11.0); MONOCYTES # (AUTO) 0.3 x10^3/uL (0.3-0.8); MONOCYTES % (AUTO) 4.7 % (0.0-13.0); NEUTROPHILS # (AUTO) 5.9 x10^3/uL (2.2-4.8); NEUTROPHILS % (AUTO) 86.1 % (42.0-75.0); RED BLOOD COUNT 3.18 X10^6/uL (4.7-6.0); RED CELL DISTRIBUTION WIDTH 16.5 % (11.6-16.5); WHITE BLOOD COUNT 6.9 X10^3/uL (3.6-10.0)
[2022-12-12 07:19] LABS: ALANINE AMINOTRANSFERASE 22 Units/L (12-78); ALBUMIN 2.1 g/dL (3.4-5.0); ALKALINE PHOSPHATASE 147 Units/L (46-116); ASPARTATE AMINO TRANSFERASE 24 Units/L (15-37); BLOOD UREA NITROGEN 12 mg/dL (7-18); CALCIUM 8.8 mg/dL (8.5-10.1); CARBON DIOXIDE 28.4 mmol/L (21-32); CHLORIDE 102 mmol/L (98-107); COR CA(FOR HYPOALB) 10.3 mg/dL (8.5-10.1); COR NA(FOR HYPERGLY) 136 mmol/L (136-145); CREATININE 0.83 mg/dL (0.70-1.30); SODIUM 135 mmol/L (136-145); TOTAL PROTEIN 7.3 g/dL (6.4-8.2); eGFR NON BLACK RACES > 60 (>60)
--- NOTE | 2022-12-12 09:43 | DR.H&P ---
H&P - History & Physical for Day of: H&P Date: 12/11/22 - History of Present Illness History of Present Illness: AMS, DECREASED ALERTNESS, COUGH, BODY ACHES, DECREASED URINE OUTPUT - Past Medical History Past Medical History: Hypertension, CHF Additional Medical History: Pulmonary Embolus, Deep Vein Thrombosis, Vision Deficit, Hearing Deficit, Cardiac Arrhythmia, Seasonal Allergies, Slow Digestion, Muscle Weakness, Fibromyalgia, Back Pain, Degenerative Disc Disease - Past Surgical History Surgical History: Other - Family History Family Medical History: Diabetes Mellitus, Hypertension - Social History Does patient currently use any type of tobacco product: No Have you used tobacco products in the last 12 months: No Type of Tobacco Use: None Alcohol Use: None Drug Use: None - Medications Home Medications: [id number] Reductase Inhibitor Allergy (Verified 12/10/22 20:47) CONTINUE taking the following medications acetaminophen 300 mg-codeine 60 mg tablet 1 tab PO Q6H 12/10/22 [History] ascorbic acid (vitamin C) 500 mg tablet (Vitamin C) 500 mg PO QDAY 12/10/22 [History] calcium carbonate 500 mg-vitamin D3 3.125 mcg (125 unit) tablet 1 tab PO QDAY 12/10/22 [History] cholecalciferol (vitamin D3) 50 mcg (2,000 unit) tablet (Vitamin D3) 50 mcg PO QDAY 12/10/22 [History] coQ10 (ubiquinol) 100 mg capsule 200 mg PO QDAY 12/10/22 [History] ferrous sulfate 324 mg (65 mg iron) tablet,delayed release 324 mg PO QDAY 12/10/22 [History] folic acid 400 mcg tablet 0.4 mg PO QDAY 12/10/22 [History] furosemide 40 mg tablet 40 mg PO BID 12/10/22 [History] magnesium oxide 500 mg capsule 500 mg PO QDAY 12/10/22 [History] metoclopramide HCl 10 mg tablet 10 mg PO QACHS 12/10/22 [History] omega 1-snt-rlj-fish oil 1,000 mg (120 mg-180 mg) capsule (Fish Oil) 1 cap PO QDAY 12/10/22 [History] prasterone (dhea) 25 mg tablet (DHEA) 25 mg PO QDAY 12/10/22 [History] - Review of Systems Constitutional: Weakness. denies: Fever, Chills Eyes: No Symptoms Reported ENT: No Symptoms Reported Respiratory: Cough, Shortness of Breath, SOB with Excertion Cardiovascular: No Symptoms Reported Gastrointestinal: No Symptoms Reported Genitourinary: Other (DECREASED URINE OUTPUT) Musculoskeletal: No Symptoms Reported Skin: No Symptoms Reported Neurological: See HPI, Weakness, Confusion - Physical Exam Vital Signs: Temperature 98.7 F Pulse Rate [Left Radial] 94 Pulse Rate 89 Respiratory Rate 20 Blood Pressure [Left Arm] 140/67 Blood Pressure 171/75 O2 Sat by Pulse Oximetry 96 Oriented: Normal Eyes: Normal Ear: Normal Nose: Normal Throat: Normal Respiratory: Diminished Throughout Cardiovascular: Normal : Normal Auscultation: Bowel Sounds: Normal Palpation: Normal Tenderness: Normal Skin: Normal Musculoskeletal: Normal Psychiatric: Normal Mood Description: Calm Affect: Normal Speech Pattern: Clear - Assessment/Plan (1) COPD exacerbation Status: Acute Plan: ADMIT, SUPPLEMENTAL OXYGEN, NORMAL SALINE AT 80 ML/HR, LEVAQUIN 500MG IV DAILY, SOLU-MEDROL 80MG IV Q8H, GENTAMICIN SULFATE 2 DROPS TO EACH EYE Q6H, ALBUTEROL NEBS Q4H, NORCO 1 TAB PO Q6H PRN, OTBS ACHS, HUMULIN R SLIDING SCALE, AND THE POTASSIUM AND MAGNESIUM PROTOCOLS. REVIEW HOME MEDS (2) Acute bronchitis Qualifiers: Bronchitis organism: unspecified organism Status: Acute (3) Hypersomnolence Status: Acute (4) Acute conjunctivitis, bilateral Qualifiers: Acute conjunctivitis type: bacterial Qualified Code(s): H10.33 - Unspecified acute conjunctivitis, bilateral Status: Acute (5) Hypertension Qualifiers: Hypertension type: primary hypertension Qualified Code(s): I10 - Essential (primary) hypertension Status: Chronic - Allergies Allergies/Adverse Reactions: Allergies Allergy/AdvReac Type Severity Reaction Status Date / Time [id number] Reductase Allergy Verified 12/10/22 20:47 Inhibitor
[2022-12-12] MEDS: LEVAQUIN PREMIX IV 500 MG 500 MG/100 ML BAG IV SCH (10:03)
[2022-12-12 17:33] VITALS: BMI 49.2
[2022-12-12] MEDS: NORCO 5/325 MG TAB PO PRN (21:47)
[2022-12-12] MEDS: SNACK - Diabetic Appropriate PO SCH (21:50)
[2022-12-12] MEDS: NovoLIN R (or HumuLIN R) SUBCUT PRN (21:50)
[2022-12-13] MEDS: PROVENTIL NEB TX 0.083% 2.5MG/ 3ML NEB SCH ×6 (01:00→21:24)
[2022-12-13] MEDS: GENTAMICIN SULF (OPHTH) AFFEYE SCH ×4 (03:29→21:25)
[2022-12-13] MEDS: SOLU-Medrol 40 MG VIAL IVP SCH ×3 (06:01→21:21)
[2022-12-13] MEDS: NORCO 5/325 MG TAB PO PRN ×2 (06:10→21:24)
[2022-12-13 06:44] LABS: BASOPHILS % (AUTO) 0.1 % (0.2-1.0); HEMATOCRIT 29.3 % (42.0-54.0); HEMOGLOBIN 9.6 g/dL (13.5-18.0); LYMPHOCYTES # (AUTO) 0.6 X10^3/uL (1.3-2.9); LYMPHOCYTES % (AUTO) 6.3 % (21.0-51.0); MEAN CORPUSCULAR HEMOGLOBIN 28.8 pg (27.0-34.0); MEAN CORPUSCULAR HGB CONC 32.7 g/dL (33.0-35.0); MEAN CORPUSCULAR VOLUME 88.1 fL (80.0-100.0); MEAN PLATELET VOLUME 8.4 fL (7.4-11.0); MONOCYTES # (AUTO) 0.8 x10^3/uL (0.3-0.8); MONOCYTES % (AUTO) 7.4 % (0.0-13.0); NEUTROPHILS # (AUTO) 8.9 x10^3/uL (2.2-4.8); NEUTROPHILS % (AUTO) 86.2 % (42.0-75.0); RED BLOOD COUNT 3.33 X10^6/uL (4.7-6.0); RED CELL DISTRIBUTION WIDTH 16.6 % (11.6-16.5); WHITE BLOOD COUNT 10.3 X10^3/uL (3.6-10.0)
[2022-12-13 06:50] LABS: ALANINE AMINOTRANSFERASE 25 Units/L (12-78); ALBUMIN 2.5 g/dL (3.4-5.0); ALKALINE PHOSPHATASE 144 Units/L (46-116); ASPARTATE AMINO TRANSFERASE 23 Units/L (15-37); BLOOD UREA NITROGEN 18 mg/dL (7-18); CALCIUM 8.8 mg/dL (8.5-10.1); CARBON DIOXIDE 27.1 mmol/L (21-32); CHLORIDE 100 mmol/L (98-107); COR NA(FOR HYPERGLY) 135 mmol/L (136-145); CREATININE 0.89 mg/dL (0.70-1.30); SODIUM 134 mmol/L (136-145); TOTAL PROTEIN 7.9 g/dL (6.4-8.2); eGFR NON BLACK RACES > 60 (>60)
[2022-12-13] MEDS: LEVAQUIN PREMIX IV 500 MG 500 MG/100 ML BAG IV SCH (09:31)
[2022-12-13] MEDS ORDERED: TORADOL 30 MG VIAL IVP PRN (09:51)
[2022-12-13] MEDS ORDERED: PATIENT'S HOME MEDICATION (Alprazolam 0.5 mg tablet) PO SCH (10:00)
[2022-12-13] MEDS: NS 1,000 ML IV 1,000 ML IV SCH ×3 (10:00→23:16)
[2022-12-13] MEDS: XARELTO PO SCH (12:00)
[2022-12-13] MEDS: VITAMIN D3 25 mcg (1,000 UNITS) PO SCH (12:00)
[2022-12-13] MEDS: OSCAL+D or CALTRATE+D PO SCH (12:00)
[2022-12-13] MEDS: TOPROL XL PO SCH (12:00)
[2022-12-13] MEDS: PRASTERONE 25 MG PO SCH (12:00)
[2022-12-13] MEDS: MAG-OX TAB PO SCH (12:00)
[2022-12-13] MEDS: MOBIC TAB 15 MG PO SCH (12:00)
[2022-12-13] MEDS: REGLAN TAB 10 MG PO SCH ×4 (12:00→21:23)
[2022-12-13] MEDS: FOLIC ACID TAB 1 MG PO SCH (12:00)
[2022-12-13] MEDS: ULTRAM PO SCH ×3 (12:00→21:23)
[2022-12-13] MEDS: FERROUS GLUCONATE PO SCH (12:00)
[2022-12-13] MEDS: LOVAZA PO SCH (12:00)
[2022-12-13] MEDS: VITAMIN C PO SCH (12:00)
[2022-12-13] MEDS: ZANAFLEX PO SCH ×2 (12:47→21:22)
[2022-12-13] MEDS: PriLOSEC PO SCH ×2 (12:48→21:22)
[2022-12-13] MEDS: NEURONTIN TAB 600 MG PO SCH ×3 (12:48→21:23)
[2022-12-13] MEDS: LASIX PO SCH ×2 (12:48→21:25)
[2022-12-13] MEDS: REQUIP PO SCH ×2 (12:49→21:22)
[2022-12-13] MEDS: COQ10 100 MG PO SCH (14:18)
[2022-12-13] MEDS: LINZESS PO SCH (14:24)
[2022-12-13] MEDS: SNACK - Diabetic Appropriate PO SCH (20:38)
[2022-12-13] MEDS: XANAX PO SCH (21:24)
[2022-12-14] MEDS: PROVENTIL NEB TX 0.083% 2.5MG/ 3ML NEB SCH ×3 (00:53→08:55)
[2022-12-14] MEDS: GENTAMICIN SULF (OPHTH) AFFEYE SCH ×2 (03:45→09:02)
[2022-12-14] MEDS: ULTRAM PO SCH ×2 (04:35→09:03)
[2022-12-14] MEDS: SOLU-Medrol 40 MG VIAL IVP SCH (05:23)
[2022-12-14] MEDS: NORCO 5/325 MG TAB PO PRN (05:23)
[2022-12-14] MEDS: REGLAN TAB 10 MG PO SCH (05:31)
--- NOTE | 2022-12-14 06:22 | RAD ---
HISTORYSOBSTUDYPortable AP chestCOMPARISONJanuary 2022FINDINGSBorderline to mild cardiomegaly with mild pulmonary vascular congestion. There is no edema, pneumonia, atelectasis or pleural effusion.IMPRESSIONAs above.Electronically signed by: PRAMOD BUI (Dec 14, 2022 06:21:43)
[2022-12-14 06:27] LABS: BASOPHILS % (AUTO) 0.1 % (0.2-1.0); HEMATOCRIT 30.1 % (42.0-54.0); HEMOGLOBIN 9.7 g/dL (13.5-18.0); LYMPHOCYTES # (AUTO) 0.6 X10^3/uL (1.3-2.9); LYMPHOCYTES % (AUTO) 7.3 % (21.0-51.0); MEAN CORPUSCULAR HEMOGLOBIN 28.5 pg (27.0-34.0); MEAN CORPUSCULAR HGB CONC 32.4 g/dL (33.0-35.0); MEAN CORPUSCULAR VOLUME 87.9 fL (80.0-100.0); MEAN PLATELET VOLUME 8.3 fL (7.4-11.0); MONOCYTES # (AUTO) 0.6 x10^3/uL (0.3-0.8); MONOCYTES % (AUTO) 6.9 % (0.0-13.0); NEUTROPHILS # (AUTO) 7.1 x10^3/uL (2.2-4.8); NEUTROPHILS % (AUTO) 85.7 % (42.0-75.0); RED BLOOD COUNT 3.42 X10^6/uL (4.7-6.0); RED CELL DISTRIBUTION WIDTH 16.8 % (11.6-16.5); WHITE BLOOD COUNT 8.3 X10^3/uL (3.6-10.0)
[2022-12-14 06:40] LABS: ALANINE AMINOTRANSFERASE 21 Units/L (12-78); ALBUMIN 2.5 g/dL (3.4-5.0); ALKALINE PHOSPHATASE 131 Units/L (46-116); ASPARTATE AMINO TRANSFERASE 18 Units/L (15-37); BLOOD UREA NITROGEN 21 mg/dL (7-18); CALCIUM 8.6 mg/dL (8.5-10.1); CARBON DIOXIDE 27.9 mmol/L (21-32); CHLORIDE 101 mmol/L (98-107); COR CA(FOR HYPOALB) 9.8 mg/dL (8.5-10.1); COR NA(FOR HYPERGLY) 137 mmol/L (136-145); CREATININE 0.91 mg/dL (0.70-1.30); SODIUM 136 mmol/L (136-145); TOTAL PROTEIN 7.7 g/dL (6.4-8.2); eGFR NON BLACK RACES > 60 (>60)
[2022-12-14] MEDS: OSCAL+D or CALTRATE+D PO SCH (08:58)
[2022-12-14] MEDS: LEVAQUIN PREMIX IV 500 MG 500 MG/100 ML BAG IV SCH (08:58)
[2022-12-14] MEDS: MOBIC TAB 15 MG PO SCH (08:58)
[2022-12-14] MEDS: LOVAZA PO SCH (08:59)
[2022-12-14] MEDS: REQUIP PO SCH (08:59)
[2022-12-14] MEDS: LINZESS PO SCH (08:59)
[2022-12-14] MEDS: XANAX PO SCH (09:00)
[2022-12-14] MEDS: LASIX PO SCH (09:00)
[2022-12-14] MEDS: FOLIC ACID TAB 1 MG PO SCH (09:00)
[2022-12-14] MEDS: TOPROL XL PO SCH (09:00)
[2022-12-14] MEDS: FERROUS GLUCONATE PO SCH (09:00)
[2022-12-14] MEDS: VITAMIN C PO SCH (09:00)
[2022-12-14] MEDS: XARELTO PO SCH (09:00)
[2022-12-14] MEDS: MAG-OX TAB PO SCH (09:00)
[2022-12-14] MEDS: NEURONTIN TAB 600 MG PO SCH (09:01)
[2022-12-14] MEDS: ZANAFLEX PO SCH (09:01)
[2022-12-14] MEDS: PriLOSEC PO SCH (09:01)
[2022-12-14] MEDS: VITAMIN D3 25 mcg (1,000 UNITS) PO SCH (09:02)
[2022-12-14] MEDS: PRASTERONE 25 MG PO SCH (09:02)
[2022-12-14] MEDS: COQ10 100 MG PO SCH (09:02)
--- NOTE | 2022-12-14 09:12 | RAD ---
HISTORYSOBSTUDYAP chestCOMPARISONFebruary 2022FINDINGSThere is no change since 1 day prior. Cardiac prominence with mild vascular congestion. There is no evidence for developing pneumonia, pulmonary edema or pleural fluid.IMPRESSIONNo change.Electronically signed by: PRAMOD BUI (Dec 14, 2022 09:10:40)
[2022-12-14 10:53] VITALS: BP 186/100
== END 2022-12-14 10:40 | disposition home or self-care (01) ==
LOC: ER 18:30 → MED/SURG 18:30
PROVIDERS: ADMIT Internal Medicine; ATTEND Internal Medicine
DX: H10.33 Unspecified acute conjunctivitis, bilateral; Z86.718 Personal history of other venous thrombosis and embolism; R40.1 Stupor; G47.10 Hypersomnia, unspecified; R06.02 Shortness of breath; I10 Essential (primary) hypertension; R73.09 Other abnormal glucose; R26.89 Other abnormalities of gait and mobility; J20.8 Acute bronchitis due to other specified organisms; Z20.822 Contact with and (suspected) exposure to COVID-19; R94.31 Abnormal electrocardiogram [ECG] [EKG]; J44.1 Chronic obstructive pulmonary disease with (acute) exacerbation